=== PATIENT | male | born 1935 | race Hispanic/Latino ===

== ENCOUNTER 2016-11-11 16:11 | Observation (INO) | payer MEDICARE ==
[2016-11-11 16:11] VITALS: BMI 27.9
--- NOTE | 2016-11-11 16:47 | ED PDOC ---
HPI: General Adult Time Seen by Provider: 11/11/16 16:32 Chief Complaint (Nursing): Chest Pain History Per: Patient Additional Complaint(s): Pt. states this morning he had several episodes of intermittent L sided non- radiating chest pain that would resolve spontaneously. Reports that he took 2 Aspirin 325mg. Currently without any pain. Denies SOB, [place], leg pain, palpitations, fever, hx of CAD, trauma. Past Medical History Reviewed: Historical Data, Nursing Documentation, Vital Signs Vital Signs: Last Vital Signs Temp 98.3 F 11/11/16 16:21 Pulse 80 11/11/16 16:34 Resp 18 11/11/16 16:21 BP 138/86 11/11/16 16:21 Pulse Ox 97 11/11/16 16:50 - Medical History PMH: Anxiety, Arthritis, Depression, HTN, Hypercholesterolemia, Hypothyroidism, Chronic Kidney Disease - Family History Family History: States: No Known Family Hx - Home Medications Home Medications: Ambulatory Orders Medication Instructions Recorded Aspirin [Aspirin EC] 325 mg PO DAILY 11/11/16 Atorvastatin [Lipitor] 10 mg PO HS 11/11/16 Bethanechol [Urecholine] 25 mg PO TID 11/11/16 Bethanechol [Urecholine] 50 mg PO HS 11/11/16 Ergocalciferol (Vitamin D2) 50,000 unit PO Q14D 11/11/16 [Vitamin D2] Febuxostat [Uloric] 80 mg PO DAILY 11/11/16 Sevelamer Carbonate [Renvela] 800 mg PO TID 11/11/16 Sodium Bicarbonate Tab [Sodium 650 mg PO BID 11/11/16 Bicarbonate Tab] Tamsulosin [Flomax] 0.4 mg PO HS 11/11/16 Valsartan [Diovan] 160 mg PO DAILY 11/11/16 Vilazodone HCl [Viibryd] 20 mg PO QAM 11/11/16 buPROPion XL [Wellbutrin XL] 300 mg PO QAM 11/11/16 clonazePAM [Klonopin] 0.25 mg PO BID PRN 11/11/16 diltiaZEM CD [Cardizem CD] 180 mg PO DAILY 11/11/16 hydroCHLOROthiazide [Hydrodiuril] 25 mg PO DAILY 11/11/16 - Allergies Allergies/Adverse Reactions: Allergies Allergy/AdvReac Type Severity Reaction Status Date / Time No Known Allergies Allergy Verified 11/11/16 16:20 Review of Systems ROS Statement: Except As Marked, All Systems Reviewed And Found Negative Cardiovascular: Positive for: Chest Pain Physical Exam - Reviewed Nursing Documentation Reviewed: Yes Vital Signs Reviewed: Yes - Physical Exam Appears: Positive for: Well, Non-toxic, No Acute Distress Head Exam: Positive for: ATRAUMATIC, NORMAL INSPECTION, NORMOCEPHALIC Skin: Positive for: Normal Color, Warm. Negative for: Rash Eye Exam: Positive for: EOMI, Normal appearance, PERRL ENT: Positive for: Normal ENT Inspection Neck: Positive for: Normal, Painless ROM Cardiovascular/Chest: Positive for: Regular Rate, Rhythm Respiratory: Positive for: CNT, Normal Breath Sounds Gastrointestinal/Abdominal: Positive for: Normal Exam, Bowel Sounds, Soft Back: Positive for: Normal Inspection Extremity: Positive for: Normal ROM Neurologic/Psych: Positive for: Alert, Oriented. Negative for: Aphasia, Facial Droop - Laboratory Results Result Diagrams: 11/11/16 16:55 11/11/16 16:55 - ECG ECG: Positive for: Interpreted By Me ECG Rhythm: Positive for: Sinus Rhythm. Negative for: ST/T Changes O2 Sat by Pulse Oximetry: 97 - Radiology X-Ray: Interpreted by Me (CXR) X-Ray Interpretation: No Acute Disease - Progress ED Course And Treament: Labs ordered. CXR ordered. IV line established. Pt. placed on cardiac rehab nurse. Case d/w Dr. Hill and arrangements made for 23 hr observation. Re-evaluation Time: 19:06 Disposition - Clinical Impression Clinical Impression: Chest pain - Patient ED Disposition Is Patient to be Admitted: No - Disposition Disposition Time: 19:06 Condition: STABLE
[2016-11-11 17:18] LABS: BASO % 0.5 % (0.0-2.0); EOS # 0.1 K/uL (0.0-0.7); EOS % 1.3 % (0.0-4.0); HEMATOCRIT 51.3 % (35.0-51.0); LYMPH # 1.5 K/uL (1.0-4.3); LYMPH % 21.4 % (20.0-40.0); MEAN CORPUSCULAR HEMOGLOBIN 30.3 pg (27.0-31.0); MEAN CORPUSCULAR HGB CONC 33.6 g/dL (33.0-37.0); MEAN PLATELET VOLUME 9.2 fl (7.2-11.7); MONO # 0.5 K/uL (0.0-0.8); MONO % 6.5 % (0.0-10.0); NEUT # 4.9 K/uL (1.8-7.0); NEUT % 70.3 % (50.0-75.0); NRBC % 0.3 % (0.0-0.0); RED CELL DISTRIBUTION WIDTH 15.1 % (11.5-14.5)
--- NOTE | 2016-11-11 17:31 | RAD ---
HISTORY: chest pain COMPARISON: Chest x-ray performed 01/05/14 TECHNIQUE: Chest, one view. FINDINGS: LUNGS: Mild left basilar atelectasis or infiltrate. Linear atelectasis, right lower lobe. Please note that chest x-ray has limited sensitivity for the detection of pulmonary masses. PLEURA: No significant pleural effusion identified. No definite pneumothorax . CARDIOVASCULAR: Cardiomegaly. Ectatic aorta. OSSEOUS STRUCTURES: Degenerative changes. VISUALIZED UPPER ABDOMEN: Unremarkable. OTHER FINDINGS: None. IMPRESSION: Mild left basilar atelectasis or infiltrate. Linear atelectasis, right lower lobe. Cardiomegaly. Ectatic aorta.
[2016-11-11 17:35] LABS: ALB/GLOB RATIO 1.1 (1.0-2.1); ALKALINE PHOSPHATASE 89 U/L (38-126); ALT/SGPT 43 U/L (21-72); AST/SGOT 25 U/L (17-59); BILIRUBIN,TOTAL 0.6 mg/dl (0.2-1.3); BLOOD UREA NITROGEN 29 mg/dl (9-20); CARBON DIOXIDE 22 mmol/L (22-30); CHLORIDE 108 mmol/L (98-107); GFR AFRICAN-AMERICAN 42; GLUCOSE,RANDOM 124 mg/dL (75-110); POTASSIUM 3.6 MMOL/L (3.6-5.0); SODIUM 140 mmol/l (132-148); TOTAL PROTEIN 7.3 G/DL (6.3-8.2)
--- NOTE | 2016-11-11 19:50 | CP.PCM.HP ---
History of Present Illness - History of Present Illness History of Present Illness: CC/HPI: Pt. presents to the emergency room from home. Pt. reports walked to the emergency room unassisted because of "chest pressure." Pt. states chest pressure started last night while at home. Pt. states pressure is left sided and lasted for a few seconds and resolved spontaneously. Pt. reports the today the intermittent episodes of chest pressure continue to persist and has had 8 episodes prior to arriving to the emergency room. Pt. reports has taken Aspirin 325mg x 2 today and reports no change in current symptoms. Pt. reports he has not experienced this type of symptom in the past. Pt. denies any chest pain associated with exertion and denies any shortness of breath with changes in position. Pt. also denies any palpitations, lightheadedness, falls, injury, recent travel, or sick contacts. Pt. at this time with no other complaints. ROS: Pt. denies any nausea, vomiting, diarrhea, constipation, abdominal pain, flank pain, joint pain, dysuria, rashes, fever, chills, or weight loss. 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 Conte at [facility] Nephrology: Dr. Padilla Cardiology: Dr. Herr Psychiatry: Jose Waterman Course 1- CXR 2- EKG 3- CBC, CMP, Troponin, Pro-BNP Present on Admission - Present on Admission Any Indicators Present on Admission: No History of DVT/PE: No History of Uncontrolled Diabetes: No Urinary Catheter: No Decubitus Ulcer Present: No Review of Systems - Review of Systems Review of Systems: See HPI - Cardiovascular Cardiovascular: Chest Pain (See HPI for details) Past Patient History - Past Medical History & Family History Past Medical History?: Yes - Past Social History Smoking Status: Never Smoked - CARDIAC Hx Hypercholesterolemia: Yes Hx Hypertension: Yes - PULMONARY Hx Respiratory Disorders: No - NEUROLOGICAL Hx Neurological Disorder: No - HEENT Hx HEENT Problems: No - RENAL Hx Chronic Kidney Disease: Yes - ENDOCRINE/METABOLIC Hx Hypothyroidism: Yes - HEMATOLOGICAL/ONCOLOGICAL Hx Hepatitis A: Yes - MUSCULOSKELETAL/RHEUMATOLOGICAL Hx Arthritis: Yes - GASTROINTESTINAL Hx Gastrointestinal Disorders: No - GENITOURINARY/GYNECOLOGICAL Hx Genitourinary Disorders: Yes Other/Comment: Obstructive uropathy. urogenic bladder - PSYCHIATRIC Hx Anxiety: Yes Hx Depression: Yes - SURGICAL HISTORY Hx Surgeries: Yes Other/Comment: TURP-5 yrs ago - ANESTHESIA Hx Anesthesia: Yes Hx Anesthesia Reactions: No Hx Malignant Hyperthermia: No Meds Allergies/Adverse Reactions: Allergies Allergy/AdvReac Type Severity Reaction Status Date / Time No Known Allergies Allergy Verified 11/11/16 16:20 Physical Exam - Constitutional Appears: Non-toxic, No Acute Distress - Eye Exam Eye Exam: PERRL. absent: Conjunctival injection - Neck Exam Neck exam: Positive for: Full Rom. Negative for: Thyromegaly - Respiratory Exam Respiratory Exam: Clear to Auscultation Bilateral, NORMAL BREATHING PATTERN - Cardiovascular Exam Cardiovascular Exam: REGULAR RHYTHM, +S1, +S2 - GI/Abdominal Exam GI & Abdominal Exam: Normal Bowel Sounds, Soft. absent: Tenderness - Extremities Exam Extremities exam: Positive for: pedal pulses present. Negative for: calf tenderness - Neurological Exam Neurological exam: Alert, Oriented x3 - Psychiatric Exam Psychiatric exam: Normal Affect, Normal Mood Results - Vital Signs Recent Vital Signs: Last Vital Signs Temp 98.3 F 11/11/16 16:21 Pulse 80 11/11/16 16:34 Resp 18 11/11/16 16:21 BP 138/86 11/11/16 16:21 Pulse Ox 97 11/11/16 16:50 - Labs Result Diagrams: 11/11/16 16:55 11/11/16 16:55 Assessment & Plan - Assessment and Plan (Free Text) Assessment: 81 y.o. male with complaint of chest pain Chest Pain of unclear etiology 1- Troponin x 1 Negative, will repeat 2nd Troponin 2- EKG Normal sinus rhythm, no acute changes when compared to previous EKG 3- ECHO dated 02/16/16 EF of 55-60% with Mild Concentric LVH- Will repeat Echocardiogram 4- Nuclear stress test dated 02/29/16- No evidence of ischemic myocardium 5- CXR Portable- No signs of fracture or Pneumothorax- Will get PA/Lateral for further evaluation 6- Cardiology- Pt. seen by Dr. Herr in the past, consider consult if clinically indicated 7- Labs- Lipid Panel, HbA1c, TSH CKD Stage III not on HD - GFR 34 1- Repeat BMP 2- Continue Renagel 3- Continue Sodium Bicarbonate HTN 1- Continue Diltiazem CD 180mg 2- Continue Losartan 160mg HLD 1- Continue Atorvastatin 2- Lipid Panel BPH 1- Continue Tamsulosin .4mg 2- Continue Bethanechol 50mg Gout 1- Continue Uloric acid 80mg 2- Uric acid level Depression/Anxiety 1- Continue Wellbutrin (Non-forumulary) 2- Continue Vilazadone (Non-formulary) 3- Continue Clonazepam .25mg PRN Diet 1- Heart Healthy DVT prophylaxis 1- Lovenox 40mg sc 2- CBC
[2016-11-11] MEDS ORDERED: Bethanechol 50 MG TAB PO SCH (22:00)
[2016-11-12 07:17] LABS: HEMATOCRIT 49.5 % (35.0-51.0); MEAN CORPUSCULAR HEMOGLOBIN 30.5 pg (27.0-31.0); MEAN CORPUSCULAR HGB CONC 33.5 g/dL (33.0-37.0); RED CELL DISTRIBUTION WIDTH 14.7 % (11.5-14.5); WHITE BLOOD COUNT 6.6 K/uL (4.8-10.8)
[2016-11-12 07:25] LABS: BLOOD UREA NITROGEN 26 mg/dl (9-20); CALCIUM 8.8 mg/dL (8.4-10.2); CARBON DIOXIDE 24 mmol/L (22-30); CHLORIDE 108 mmol/L (98-107); CHOLESTEROL 102 mg/dL (0-199); GFR AFRICAN-AMERICAN 47; GLUCOSE,RANDOM 88 mg/dL (75-110); POTASSIUM 3.2 MMOL/L (3.6-5.0); SODIUM 142 mmol/l (132-148); URIC ACID 4.4 mg/Dl (3.5-8.5)
[2016-11-12 07:53] LABS: THYROID STIMULATING HORMONE 2.14 mIU/ML (0.46-4.68)
[2016-11-12 08:15] VITALS: RESP 20
[2016-11-12] MEDS ORDERED: Patient's Own Med (Vilazodone Hcl [Viibryd] 20 mg) PO SCH (09:00)
[2016-11-12] MEDS ORDERED: diltiaZEM 180 mg/24 Hours CD Cap PO SCH (09:00)
[2016-11-12] MEDS: Enoxaparin 40 mg Syringe SC SCH ×2 (09:18→09:23)
--- NOTE | 2016-11-12 09:24 | CP.PCM.CON ---
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 Past Patient History - Past Medical History & Family History Past Medical History?: Yes - Past Social History Smoking Status: Never Smoked - CARDIAC Hx Hypercholesterolemia: Yes Hx Hypertension: Yes - PULMONARY Hx Respiratory Disorders: No - NEUROLOGICAL Hx Neurological Disorder: No - HEENT Hx HEENT Problems: No - RENAL Hx Chronic Kidney Disease: Yes - ENDOCRINE/METABOLIC Hx Hypothyroidism: Yes - HEMATOLOGICAL/ONCOLOGICAL Hx Hepatitis A: Yes - INTEGUMENTARY Hx Dermatological Problems: No - MUSCULOSKELETAL/RHEUMATOLOGICAL Hx Arthritis: Yes - GASTROINTESTINAL Hx Gastrointestinal Disorders: No - GENITOURINARY/GYNECOLOGICAL Hx Genitourinary Disorders: Yes Other/Comment: Obstructive uropathy. urogenic bladder - PSYCHIATRIC Hx Anxiety: Yes Hx Depression: Yes - SURGICAL HISTORY Hx Surgeries: Yes Other/Comment: TURP-5 yrs ago - ANESTHESIA Hx Anesthesia: Yes Hx Anesthesia Reactions: No Hx Malignant Hyperthermia: No Meds Allergies/Adverse Reactions: Allergies Allergy/AdvReac Type Severity Reaction Status Date / Time No Known Allergies Allergy Verified 11/11/16 16:20 - Medications Medications: Current Medications Atorvastatin Calcium (Lipitor) 10 mg PO HS [facility] Last Admin: 11/11/16 21:42 Dose: 10 mg Bethanechol Chloride (Urecholine) 25 mg PO TID JAMES Bethanechol Chloride (Urecholine) 50 mg PO HS [facility] Last Admin: 11/11/16 21:44 Dose: 50 mg Clonazepam (Klonopin) 0.25 mg PO BID PRN PRN Reason: Anxiety Diltiazem HCl (Cardizem Cd) 180 mg PO DAILY [facility] Enoxaparin Sodium (Lovenox) 40 mg SC DAILY [facility] PRN Reason: Protocol Home Med (Bupropion Xl [Wellbutrin Xl]) 300 mg PO QAM [facility] Home Med (Febuxostat [Uloric]) 80 mg PO DAILY [facility] Home Med (Vilazodone Hcl [Viibryd]) 20 mg PO QAM [facility] Sevelamer HCl (Renagel) 800 mg PO TID [facility] Sodium Bicarbonate (Sodium Bicarbonate Tab) 650 mg PO BID [facility] Tamsulosin HCl (Flomax) 0.4 mg PO HS JAMES Last Admin: 11/11/16 21:44 Dose: 0.4 mg Valsartan (Diovan) 160 mg PO DAILY [facility] Results - Vital Signs Recent Vital Signs: Last Vital Signs Temp 97.8 F 11/12/16 08:14 Pulse 50 L 11/12/16 08:14 Resp 20 11/12/16 08:14 BP 159/81 H 11/12/16 08:14 Pulse Ox 98 11/12/16 08:14 - Labs Result Diagrams: 11/12/16 05:20 11/12/16 05:20 Labs: Laboratory Results - last 24 hr 11/11/16 11/12/16 11/12/16 20:54 05:20 05:20 WBC 6.6 RBC 5.44 Hgb 16.6 Hct 49.5 MCV 91.0 MCH 30.5 MCHC 33.5 RDW 14.7 H Plt Count 139 Sodium 142 Potassium 3.2 L Chloride 108 H Carbon Dioxide 24 Anion Gap 13 BUN 26 H Creatinine 1.7 H Est GFR ( Amer) 47 Est GFR (Non-Af Amer) 39 Random Glucose 88 Uric Acid 4.4 Calcium 8.8 Troponin I < 0.0120 NT-Pro-B Natriuret Pep 145 Triglycerides 68 Cholesterol 102 LDL Cholesterol Direct 51 HDL Cholesterol 36 TSH 3rd Generation 2.14
--- NOTE | 2016-11-12 10:16 | CP.PCM.DIS ---
Provider - Provider Date of Admission: 11/11/16 19:06 Attending physician: Mylene Davis MD Consults: Dr. Herr-cardiology Time Spent in preparation of Discharge (in minutes): 30 Diagnosis - Discharge Diagnosis (1) Chest pain Status: Acute Priority: Low Hospital Course - Lab Results Lab Results: Most Recent Lab Values WBC 6.6 K/uL (4.8-10.8) 11/12/16 05:20 RBC 5.44 Mil/uL (4.40-5.90) 11/12/16 05:20 Hgb 16.6 g/dL (12.0-18.0) 11/12/16 05:20 Hct 49.5 % (35.0-51.0) 11/12/16 05:20 MCV 91.0 fl (80.0-94.0) 11/12/16 05:20 MCH 30.5 pg (27.0-31.0) 11/12/16 05:20 MCHC 33.5 g/dL (33.0-37.0) 11/12/16 05:20 RDW 14.7 % (11.5-14.5) H 11/12/16 05:20 Plt Count 139 K/uL (130-400) 11/12/16 05:20 MPV 9.2 fl (7.2-11.7) 11/11/16 16:55 Neut % (Auto) 70.3 % (50.0-75.0) 11/11/16 16:55 Lymph % (Auto) 21.4 % (20.0-40.0) 11/11/16 16:55 [place] % (Auto) 6.5 % (0.0-10.0) 11/11/16 16:55 Eos % (Auto) 1.3 % (0.0-4.0) 11/11/16 16:55 Baso % (Auto) 0.5 % (0.0-2.0) 11/11/16 16:55 Neut # 4.9 K/uL (1.8-7.0) 11/11/16 16:55 Lymph # 1.5 K/uL (1.0-4.3) 11/11/16 16:55 [place]cho # 0.5 K/uL (0.0-0.8) 11/11/16 16:55 Eos # 0.1 K/uL (0.0-0.7) 11/11/16 16:55 Baso # 0.0 K/uL (0.0-0.2) 11/11/16 16:55 Sodium 142 mmol/l (132-148) 11/12/16 05:20 Potassium 3.2 MMOL/L (3.6-5.0) L 11/12/16 05:20 Chloride 108 mmol/L (98-107) H 11/12/16 05:20 Carbon Dioxide 24 mmol/L (22-30) 11/12/16 05:20 Anion Gap 13 (10-20) 11/12/16 05:20 BUN 26 mg/dl (9-20) H 11/12/16 05:20 Creatinine 1.7 mg/dL (0.8-1.5) H 11/12/16 05:20 Est GFR ( Amer) 47 11/12/16 05:20 Est GFR (Non-Af Amer) 39 11/12/16 05:20 Random Glucose 88 mg/dL (75-110) 11/12/16 05:20 Uric Acid 4.4 mg/Dl (3.5-8.5) 11/12/16 05:20 Calcium 8.8 mg/dL (8.4-10.2) 11/12/16 05:20 Total Bilirubin 0.6 mg/dl (0.2-1.3) 11/11/16 16:55 AST 25 U/L (17-59) 11/11/16 16:55 ALT 43 U/L (21-72) 11/11/16 16:55 Alkaline Phosphatase 89 U/L (38-126) 11/11/16 16:55 Troponin I < 0.0120 ng/mL (0.00-0.120) 11/12/16 05:20 NT-Pro-B Natriuret Pep 145 pg/ml (0-900) 11/11/16 20:54 Total Protein 7.3 G/DL (6.3-8.2) 11/11/16 16:55 Albumin 3.8 g/dL (3.5-5.0) 11/11/16 16:55 Globulin 3.5 gm/dL (2.2-3.9) 11/11/16 16:55 Albumin/Globulin Ratio 1.1 (1.0-2.1) 11/11/16 16:55 Triglycerides 68 mg/DL (0-149) 11/12/16 05:20 Cholesterol 102 mg/dL (0-199) 11/12/16 05:20 LDL Cholesterol Direct 51 mg/dL (0-129) 11/12/16 05:20 HDL Cholesterol 36 MG/DL (30-70) 11/12/16 05:20 TSH 3rd Generation 2.14 mIU/ML (0.46-4.68) 11/12/16 05:20 - Hospital Course Hospital Course: 81 yr old M admitted for chest pain and pressure, patient was evaluated by cardiology-Dr. Herr, ACS was ruled out, patients symptoms improved, chest discomfort was likely secondary to costochondritis. He is stable and may be managed as outpatient. Has PMHx of HTN, HLD, CKD Stage 3B, BPH, Major Depression , Anxiety and arthritis. Patient has follow up appointments with his Car Inspector -Dr. Padilla, Urology -Dr. Gamez, and will follow up with cardiology-Dr. Herr as outpatient. - Date & Time of H&P Date of H&P: 11/11/16 Time of H&P: 19:50 Discharge Exam - Head Exam Head Exam: ATRAUMATIC, NORMAL INSPECTION, NORMOCEPHALIC - Eye Exam Eye Exam: EOMI, PERRL Pupil Exam: NORMAL ACCOMODATION - ENT Exam ENT Exam: Mucous Membranes Moist - Neck Exam Neck exam: Full Rom (no lymphadenopathy) - Respiratory Exam Respiratory Exam: Clear to PA & Lateral, NORMAL BREATHING PATTERN - Cardiovascular Exam Cardiovascular Exam: REGULAR RHYTHM, +S1, +S2 - GI/Abdominal Exam GI & Abdominal Exam: Normal Bowel Sounds, Soft. absent: Distended - Extremities Exam Extremities exam: full ROM (no calf tenderness, no pedal edema) - Back Exam Back exam: absent: CVA tenderness (L), CVA tenderness (R) - Neurological Exam Neurological exam: Alert, CN II-XII Intact, Oriented x3 - Psychiatric Exam Psychiatric exam: Normal Affect, Normal Mood - Skin Skin Exam: Dry, Intact, Warm Discharge Plan - Follow Up Plan Condition: STABLE Disposition: HOME/ ROUTINE Patient education suggested?: Yes Instructions: Chest Pain (DC) Additional Instructions: Patient to follow up with PMD in 2-3 days Follow up with Dr. Herr in 3-4 weeks Return to Hospital if symptoms worsen or regress. Referrals: Maik Gamez Jr., MD [Staff Provider] - Sudhakar Herr MD [Staff Provider] - Mi Conte MD [Resident] - Jeevan Padilla MD [Staff Provider] -
[2016-11-12 12:13] VITALS: BP 149/89; PULSE 52; TEMP 98; O2SAT 96
--- NOTE | 2016-11-12 16:50 | RAD ---
HISTORY: Intermittent Chest Pressure, Atelectasis COMPARISON: Comparison made with prior chest radiograph 11/11/2016 TECHNIQUE: Chest PA and lateral FINDINGS: LUNGS: Previously noted opacity left lower lung field improved. This may have represented some atelectasis though there does appear to be some residual linear atelectasis or scarring in the left lung base. Similar changes seen in the right lung base. Hyperinflation suggesting underlying emphysema or COPD Vague nodular density in the left lung base overlying the left posterior 9th rib. Followup nonemergent CT scan of the chest could be performed further evaluation. PLEURA: No significant pleural effusion identified. No pneumothorax apparent. CARDIOVASCULAR: Cardiomegaly. Suspect prominent pericardial fat. OSSEOUS STRUCTURES: Minor multilevel degenerative spondylosis of the thoracic spine. VISUALIZED UPPER ABDOMEN: Normal. OTHER FINDINGS: None. IMPRESSION: Previously noted opacity left lower lung field improved. This may have represented some atelectasis though there does appear to be some residual linear atelectasis or scarring in the left lung base. Similar changes seen in the right lung base. Hyperinflation suggesting underlying emphysema or COPD Vague nodular density in the left lung base overlying the left posterior 9th rib. Followup nonemergent CT scan of the chest could be performed further evaluation.
== END 2016-11-12 13:21 | disposition home or self-care (01) ==
LOC: H.ER 16:11 → H.ERHOLD 19:06 → H.TEL 21:06
PROVIDERS: ADMIT Family Medicine Geriatric Medicine; ATTEND Family Medicine Geriatric Medicine
DX: R07.89 Other chest pain (principal); E03.9 Hypothyroidism, unspecified; E78.00 Pure hypercholesterolemia, unspecified; E78.5 Hyperlipidemia, unspecified; F32.9 Major depressive disorder, single episode, unspecified; F41.9 Anxiety disorder, unspecified; I12.9 Hypertensive chronic kidney disease with stage 1 through stage 4 chronic kidney disease, or unspecified chronic kidney disease; N18.3 Chronic kidney disease, stage 3 (moderate); M10.9 Gout, unspecified; N40.1 Benign prostatic hyperplasia with lower urinary tract symptoms; N13.9 Obstructive and reflux uropathy, unspecified; N31.9 Neuromuscular dysfunction of bladder, unspecified; Z96.642 Presence of left artificial hip joint; I25.2 Old myocardial infarction
CPT/HCPCS: 36415; 71010; 71020; 80048; 80053; 80061; 83036; 83880; 84443; 84484; 84550; 85025; 85027; 99282; G0378

== ENCOUNTER 2018-03-09 11:28 | Emergency (ER) | payer MEDICARE ==
[2018-03-09 11:28] VITALS: BMI 27.9
[2018-03-09 11:59] VITALS: RESP 20; O2SAT 98
[2018-03-09] MEDS ORDERED: Iohexol 240 (50 ml) PO ONE (13:08)
[2018-03-09] MEDS ORDERED: Alum-Mag Hydrox-Simethicone Susp (30 mL) PO STA (13:10)
[2018-03-09 13:47] LABS: BASO # 0.1 K/uL (0.0-0.2); BASO % 0.7 % (0.0-2.0); EOS # 0.3 K/uL (0.0-0.7); EOS % 3.7 % (0.0-4.0); HEMOGLOBIN 14.8 g/dL (12.0-18.0); LYMPH # 1.5 K/uL (1.0-4.3); LYMPH % 20.5 % (20.0-40.0); MEAN CELL VOLUME 85.5 fl (80.0-94.0); MEAN CORPUSCULAR HEMOGLOBIN 28.8 pg (27.0-31.0); MEAN CORPUSCULAR HGB CONC 33.7 g/dL (33.0-37.0); MEAN PLATELET VOLUME 8.4 fl (7.2-11.7); MONO # 0.8 K/uL (0.0-0.8); MONO % 10.8 % (0.0-10.0); NEUT # 4.8 K/uL (1.8-7.0); NEUT % 64.3 % (50.0-75.0); NRBC % 0.1 % (0.0-0.0); RBC 5.14 Mil/uL (4.40-5.90); RED CELL DISTRIBUTION WIDTH 18.9 % (11.5-14.5); WHITE BLOOD COUNT 7.4 K/uL (4.8-10.8)
[2018-03-09] MEDS ORDERED: Alum-Mag Hydrox-Simethicone Susp (30 mL) ONE (13:47)
[2018-03-09] MEDS ORDERED: Iohexol 240 (50 ml) ONE (13:48)
[2018-03-09 14:00] LABS: URINE BACTERIA MOD (<OCC); URINE BILIRUBIN NEGATIVE (NEGATIVE); URINE BLOOD NEGATIVE (NEGATIVE); URINE CLARITY SLIGHTY-CLOUDY (Clear); URINE COLOR YELLOW (YELLOW); URINE GLUCOSE (UA) NEG (Normal); URINE LEUKOCYTE ESTERASE MOD Leu/uL (Negative); URINE PROTEIN NEGATIVE (NEGATIVE); URINE UROBILINOGEN 0.2-1.0 mg/dL (0.2-1.0)
--- NOTE | 2018-03-09 14:29 | ED PDOC ---
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 Patient states he has been taking over the counter medications with no relief. Patient report of having had an abdominal US done a couple of weeks ago that showed a full bladder and no other medical problems. Patient states he is able to urinate normal and has daily bowel movements. Patient denies nausea, fevers, pain with urination and pain with defecating. 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 Patient additionally complains the pain has been worsening lately. 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 - Surgical History Surgical History: No Surg Hx Denies: Hernia Repair - Family History Family History: States: Unknown Family Hx - Home Medications Home Medications: Ambulatory Orders Medication Instructions Recorded RX: Aspirin [Aspirin EC] 325 mg PO DAILY 11/11/16 RX: Atorvastatin [Lipitor] 10 mg PO HS 11/11/16 RX: Bethanechol [Urecholine] 25 mg PO TID 11/11/16 RX: Bethanechol [Urecholine] 50 mg PO HS 11/11/16 RX: Ergocalciferol (Vitamin D2) 50,000 unit PO Q14D 11/11/16 [Vitamin D2] RX: Febuxostat [Uloric] 80 mg PO DAILY 11/11/16 RX: Sevelamer Carbonate [Renvela] 800 mg PO TID 11/11/16 RX: Sodium Bicarbonate Tab 650 mg PO BID 11/11/16 RX: Tamsulosin [Flomax] 0.4 mg PO HS 11/11/16 RX: Valsartan [Diovan] 160 mg PO DAILY 11/11/16 RX: Vilazodone HCl [Viibryd] 20 mg PO QAM 11/11/16 RX: buPROPion XL [Wellbutrin XL] 300 mg PO QAM 11/11/16 RX: clonazePAM [Klonopin] 0.25 mg PO BID PRN 11/11/16 RX: diltiaZEM CD [Cardizem CD] 180 mg PO DAILY 11/11/16 RX: hydroCHLOROthiazide 25 mg PO DAILY 11/11/16 [Hydrodiuril] Sulfamethoxazole/Trimethoprim 1 tab PO BID #28 tab 03/09/18 [Bactrim DS 800 mg-160 mg] - Allergies Allergies/Adverse Reactions: Allergies Allergy/AdvReac Type Severity Reaction Status Date / Time No Known Allergies Allergy Verified 03/09/18 11:56 Review of Systems ROS Statement: Except As Marked, All Systems Reviewed And Found Negative Gastrointestinal: Positive for: Abdominal Pain. Negative for: Nausea, Vomiting, Diarrhea Genitourinary Male: Negative for: Dysuria, Hematuria Musculoskeletal: Positive for: Foot Pain Physical Exam - Reviewed Nursing Documentation Reviewed: Yes Vital Signs Reviewed: Yes - Physical Exam Appears: Positive for: No Acute Distress (Patient appears mildly disheveled. Patient paces around the room in NAD and cooperative. ) Cardiovascular/Chest: Positive for: Regular Rate, Rhythm. Negative for: Murmur Gastrointestinal/Abdominal: Positive for: Soft, Distended. Negative for: Tende rness Extremity: Positive for: Other (Edema to the bilateral legs. Feet appear very dirty with a calus to the lateral foot at the base of the fifth digit. No erythema, swelling fluctuance or bleeding. ) - Laboratory Results Result Diagrams: 03/09/18 13:40 03/09/18 14:15 - ECG O2 Sat by Pulse Oximetry: 98 (RA) Pulse Ox Interpretation: Normal Medical Decision Making Medical Decision Making: Time: 1415 A/P: Workup for acute abdominal pathology causing this acute distention. -- Labs, CT Abd/Pelvis w/ PO & IV contrast -- Tylenol and Maalox for abdominal discomfort. -- Reassess patient. -- Type and Screen -- CT Abd/Pelvis PO & IV contrast -- CMP -- Lipase -- CBC with Differentials -- Maalox Plus 30 ml PO -- Iohexol 50 ml PO -- Tylenol 650 mg PO -- Urinalysis Scribe Attestation: Documented by Efra Thompson, acting as a scribe for Patty Aquino MD. Provider Scribe Attestation: All medical record entries made by the Scribe were at my direction and personally dictated by me. I have reviewed the chart and agree that the record accurately reflects my personal performance of the history, physical exam, medical decision making, and the department course for this patient. I have also personally directed, reviewed, and agree with the discharge instructions and disposition. Work up shows now acute abnormality. Labs WNL. Pt given referral for outpatient and podiatry follow up. Return parameters discussed. Disposition - Clinical Impression Clinical Impression: Abdominal pain, Urinary tract infection - Disposition Disposition Time: 17:32 Condition: IMPROVED Additional Instructions: Take antibiotics for urinary tract infection. Follow up with urology for further evaluation of prostate enlargement and urinary tract infection. Discuss unwanted medication side effects with urologist. Follow up with surgeon jona hanna hernia repair. Return to the emergency department if symptoms worsen or if new symptoms develop. Prescriptions: Sulfamethoxazole/Trimethoprim [Bactrim DS 800 mg-160 mg] 1 tab PO BID #28 tab Instructions: Urinary Tract Infection, Adult (DC) Forms: [employer] (Greek) Print Language: [place]IZ[place]
[2018-03-09 15:04] LABS: ALB/GLOB RATIO 0.8 (1.0-2.1); ALBUMIN 3.4 g/dL (3.5-5.0)
--- NOTE | 2018-03-09 16:46 | CT ---
Date of service: 03/09/2018 PROCEDURE: CT Abdomen and Pelvis with contrast HISTORY: abd pain and distension COMPARISON: None. TECHNIQUE: Helical CT of the abdomen and pelvis was performed following oral contrast administration only. Intravenous contrast was not administered as per referring physician request. Coronal and sagittal reformats were generated. contrast dose: None Radiation dose: Total exam DLP = 1216.71 mGy-cm. This CT exam was performed using one or more of the following dose reduction techniques: Automated exposure control, adjustment of the mA and/or kV according to patient size, and/or use of iterative reconstruction technique. FINDINGS: LOWER THORAX: Linear axis or fibrosis seen at the bilateral lung bases. No pleural or pericardial effusion. Mild cardiomegaly. LIVER: Unremarkable. No gross lesion or ductal dilatation. GALLBLADDER AND BILE DUCTS: Unremarkable. PANCREAS: Unremarkable. No gross lesion or ductal dilatation. SPLEEN: Unremarkable. ADRENALS: Unremarkable. No mass. KIDNEYS AND URETERS: Two cysts identified the left kidney. At the upper pole exophytic cephalad is a 3.1 x 3.0 cm cyst measuring 5 Hounsfield units with a larger cyst at the midpole measuring 5.9 x 5.3 cm and 8 Hounsfield units. No obstructive uropathy bilaterally or significant perinephric reactive change. VASCULATURE: Nonaneurysmal abdominal aortic calcific atherosclerotic changes are identified. Similar changes affect the bilateral iliac arterial systems with dilatation of the proximal right common iliac artery up to 1.6 cm at the left common iliac artery up to 1.8 cm. BOWEL: The stomach is decompressed and limited in evaluation. Mildly prominent retained fecal material seen at the ascending colon, moderate at the transverse segment and otherwise limited throughout the remainder. No bowel obstruction or free intra peritoneal gas collection is appreciated. There are bilateral inguinal hernias which contain only fat at the left but also include small bowel loop at the right which does not appear obstructed or incarcerated. No local reactive change however bowel is seen extending into the right hemiscrotum due to the right inguinal hernia. Thickening of the distal rectum difficult to completely exclude. APPENDIX: Normal appendix. PERITONEUM: Unremarkable. No free fluid. No free air. LYMPH NODES: Unremarkable. No enlarged lymph nodes. BLADDER: Urinary bladder wall appears thickened with questionable limited diverticulum superolaterally toward the left. Consider cystitis or outlet obstruction with the latter favored given prominent prostate gland. No pericystic reactive change appreciated. REPRODUCTIVE: Prostate gland is enlarged up lifted in the urinary bladder base. BONES: Left hip replacement hardware obscures imaging through the pelvis somewhat. OTHER FINDINGS: None. IMPRESSION: 1. A mildly large right inguinal hernia is identified extending into the right hemiscrotum including a loop of small bowel which does not appear obstructed/incarcerated. Oral contrast is identified throughout the majority of colon. 2. Left renal cysts are identified, limited in evaluation due lack of intravenous contrast. 3. Enlarged prostate gland is appreciated with mural thickening of the wall of the urinary bladder suggestive of probable outlet obstruction pattern. Alternative diagnosis is cystitis. Limited left urinary bladder dome diverticular changes question. Further clinical correlation recommended. 4. Thickening of the distal rectum difficult to exclude completely.
[2018-03-09 18:54] VITALS: BP 120/70; PULSE 70; TEMP 98
== END 2018-03-09 18:40 | disposition home or self-care (01) ==
LOC: H.ER 11:28
DX: R10.9 Unspecified abdominal pain (principal); N39.0 Urinary tract infection, site not specified; N40.0 Benign prostatic hyperplasia without lower urinary tract symptoms; N18.3 Chronic kidney disease, stage 3 (moderate); I12.9 Hypertensive chronic kidney disease with stage 1 through stage 4 chronic kidney disease, or unspecified chronic kidney disease
CPT/HCPCS: 74176; 80053; 81003; 83690; 85025; 99283; Q9966

== ENCOUNTER 2018-04-16 15:59 | Inpatient (IN) | payer MEDICARE ==
--- NOTE | 2018-04-16 16:28 | ED PDOC ---
HPI:STROKE - Time Time: 16:15 - Historian Historian: Patient - Chief Complaint Chief Complaint: Slurred speech - Onset Date: 04/16/18 Time: 13:00 Onset: Hours - Location Location: Speech - TPA Positive for Contraindication: Yes Reason tPA is not being Administered: acute subdural hematoma - Notes: Notes:: 83yo male presents c/o inability to speak for approximately 20minutes earlier this afternoon. Denies focal weakness, numbness, change in vision, facial droop, headache, chest pain, syncope or falls/trauma. Came to ED several hours later. Admits to currently undergoing workup for melanoma due for appt next week at [facility], denies being on chemo currently. Admits to taking ASA daily, last dose last night prior to arrival. NIHSS Stroke Scale - Date/Time Evaluation Performed Date Performed: 04/16/18 Time Performed: 16:20 When Was NIHSS Performed: Baseline - How Severe is the Stroke Level of Consciousness: 0=Alert LOC to Questions: 0=Both comments correct LOC to commands: 0=Obeys both correctly Best Gaze: 0=Normal Visual: 0=No visual loss Facial: 0=Normal Motor Arm - Left: 0=No drift Motor Arm - Right: 0=No drift Motor Leg - Left: 0=No drift Motor Leg - Right: 0=No drift Limb Ataxia: 0=Absent Sensory: 0=Normal Best Language: 0=No aphasia Dysarthia: 0=Normal articulation Extinction & Inattention (Neglect): 0=Normal, no object Score: 0 rTPA Inclusion/Exclusion - Refusal of Treatment Patient Refused Treatment: No - Inclusion Criteria for Altepase Patient is 18 years or Older: Yes The Clinical Diagnosis of Ischemic Stroke That is Causing a Potentially Disabling Neurological Deficit: No Time of Onset is Well Established to be Less Than 270 Minute Before Treatment Would Begin: No Risk/Benefit Discussed With Patient/Family Member Present: No Past Medical History Reviewed: Historical Data, Nursing Documentation, Vital Signs Vital Signs: Last Vital Signs Temp 98.8 F 04/16/18 16:12 Pulse 82 04/16/18 16:12 Resp 16 04/16/18 16:12 BP 147/94 H 04/16/18 16:12 Pulse Ox 98 04/16/18 16:12 - Medical History PMH: Anxiety, Arthritis, Depression, HTN, Hypercholesterolemia, Hypothyroidism, Chronic Kidney Disease (stage 3 ) - Surgical History Surgical History: Denies: Hernia Repair - Family History Family History: States: Unknown Family Hx - Social History Current smoker - smoking cessation education provided: No - Home Medications Home Medications: Ambulatory Orders Medication Instructions Recorded Aspirin [Aspirin EC] 325 mg PO HS 11/11/16 Atorvastatin [Lipitor] 10 mg PO HS 11/11/16 Bethanechol [Urecholine] 25 mg PO TID 11/11/16 Bethanechol [Urecholine] 50 mg PO HS 11/11/16 Febuxostat [Uloric] 80 mg PO DAILY 11/11/16 Sevelamer Carbonate [Renvela] 800 mg PO TID 11/11/16 Sodium Bicarbonate Tab 650 mg PO Q12 11/11/16 Tamsulosin [Flomax] 0.4 mg PO HS 11/11/16 Valsartan [Diovan] 160 mg PO DAILY 11/11/16 clonazePAM [Klonopin] 0.5 mg PO DAILY PRN 11/11/16 diltiaZEM CD [Cardizem CD] 180 mg PO DAILY 11/11/16 hydroCHLOROthiazide [Hydrodiuril] 25 mg PO DAILY 11/11/16 Furosemide [Lasix] 80 mg PO .3X/WEEK PRN 04/16/18 Sildenafil Citrate [Viagra] 25 mg PO HS 04/16/18 - Allergies Allergies/Adverse Reactions: Allergies Allergy/AdvReac Type Severity Reaction Status Date / Time No Known Allergies Allergy Verified 04/16/18 20:53 Review of Systems Constitutional: Negative for: Fever Cardiovascular: Negative for: Chest Pain, Palpitations Respiratory: Negative for: Cough, Shortness of Breath Gastrointestinal: Negative for: Abdominal Pain Genitourinary Male: Negative for: Dysuria Musculoskeletal: Negative for: Neck Pain Skin: Negative for: Rash, Lesions Neurological: Positive for: Change in Speech. Negative for: Weakness, Numbness, Seizures, Altered Mental Status, Headache, Dizziness Psych: Negative for: Suicidal ideation Physical Exam - Reviewed Nursing Documentation Reviewed: Yes Vital Signs Reviewed: Yes - Physical Exam Appears: Positive for: Well, Non-toxic, No Acute Distress Head Exam: Positive for: ATRAUMATIC, NORMAL INSPECTION, NORMOCEPHALIC Skin: Positive for: Normal Color, Warm, DRY Eye Exam: Positive for: EOMI, Normal appearance, PERRL ENT: Positive for: Normal ENT Inspection, Other (bandaid to face where melanoma lesion exists per patient]) Neck: Positive for: Normal, Painless ROM Cardiovascular/Chest: Positive for: Regular Rate, Rhythm Respiratory: Positive for: Normal Breath Sounds. Negative for: Decreased Breath Sounds Pulses-Radial (L): 3+/4+ Pulses-Radial (R): 3+/4+ Gastrointestinal/Abdominal: Positive for: Normal Exam, Soft. 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 Negative for: Motor/Sensory Deficits, Aphasia, Facial Droop - Laboratory Results Result Diagrams: 04/17/18 04:40 04/17/18 04:40 - ECG ECG: Positive for: Interpreted By Me ECG Rhythm: Positive for: Sinus Rhythm, Nonspecific Changes. Negative for: Atrial Fibrillation Rate: 77 O2 Sat by Pulse Oximetry: 98 (RA) Pulse Ox Interpretation: Normal - Radiology X-Ray: Read By Radiologist X-Ray Interpretation: Other (possible L base airspace disease, pt denies cough) - Physician Consult Information Physician Contacted: Savanna Downs Outcome Of Conversation: also contacted Dr Taylor and Dr Fung - Critical Care Total Time (In Min): 45 Comments: patient with acute neurologic emergency Medical Decision Making Medical Decision Making: code stroke initiated, CT brain report reviewed = b/l subdural hematomas with mild mass effect. Patient continues to deny any trauma or falls, only takes ASA daily. Labs and EKG reviewed. INR, Plt and Hgb normal. Dr Downs medical practitioners neuro contact and case discussed, rec ICU and neurosurg eval Dr Taylor medical practitioners neurosurgery contacted and he reviewed CT images, states no intervention necessary acutely, may require evacuation in several days, hold ASA, admit w HOB elev and neurochecks. BP systolic 140s. Admit hospitalist for [facility] patient Dr Hargrove contacted and aware Dr Fung ICU contacted and agrees w plan Discussed case on patients permission with his sister in law Grace on phone, who reports no known reports of recent falls and overall good health with strong cognition. Disposition - Clinical Impression Clinical Impression: Acute subdural hematoma - Patient ED Disposition Is Patient to be Admitted: Yes - Disposition Disposition Time: 17:35 Condition: FAIR - Pt Status Changed To: Hospital Disposition Of: Inpatient - Admit Certification Admit to Inpatient:: After my assessment, the patient will require hospitalization for at least two midnights. This is because of the severity of symptoms shown, intensity of services needed, and/or the medical risk in this patient being treated as an outpatient. - POA Present On Arrival: None
[2018-04-16 16:39] VITALS: BMI 28.8
[2018-04-16 16:41] LABS: BASO # 0.1 K/uL (0.0-0.2); BASO % 0.9 % (0.0-2.0); EOS # 0.1 K/uL (0.0-0.7); EOS % 1.2 % (0.0-4.0); HEMOGLOBIN 14.7 g/dL (12.0-18.0); LYMPH # 1.3 K/uL (1.0-4.3); LYMPH % 16.5 % (20.0-40.0); MEAN CELL VOLUME 88.4 fl (80.0-94.0); MEAN CORPUSCULAR HEMOGLOBIN 29.5 pg (27.0-31.0); MEAN CORPUSCULAR HGB CONC 33.4 g/dL (33.0-37.0); MEAN PLATELET VOLUME 8.1 fl (7.2-11.7); MONO # 0.6 K/uL (0.0-0.8); NEUT # 5.7 K/uL (1.8-7.0); NEUT % 73.4 % (50.0-75.0); NRBC % 0.1 % (0.0-0.0); RBC 4.97 Mil/uL (4.40-5.90); RED CELL DISTRIBUTION WIDTH 16.3 % (11.5-14.5); WHITE BLOOD COUNT 7.7 K/uL (4.8-10.8)
--- NOTE | 2018-04-16 16:41 | CT ---
Date of service: 04/16/2018 PROCEDURE: CT HEAD WITHOUT CONTRAST. HISTORY: code stroke COMPARISON: None available. TECHNIQUE: Axial computed tomography images were obtained through the head/brain without intravenous contrast. Radiation dose: Total exam DLP = 818.81 mGy-cm. This CT exam was performed using one or more of the following dose reduction techniques: Automated exposure control, adjustment of the mA and/or kV according to patient size, and/or use of iterative reconstruction technique. FINDINGS: HEMORRHAGE: There are bilateral Iso to slightly hyperintense subdural hematoma mass along the cerebral convexity slightly larger on the right. The largest thickness of the right cerebral convexity subdural hematoma is 10 millimeter. The largest thickness of the left convexity hematoma is 9 millimeter. The left convexity hematoma is higher in density than the right. BRAIN: There is mild mass effect on the supratentorial brain with mild effacement of the sulci more prominent on the right. Volume loss and mild chronic microvascular white matter ischemic changes. VENTRICLES: Unremarkable. No hydrocephalus. CALVARIUM: Unremarkable. PARANASAL SINUSES: Unremarkable as visualized. No significant inflammatory changes. MASTOID AIR CELLS: Unremarkable as visualized. No inflammatory changes. OTHER FINDINGS: None. IMPRESSION: Bilateral cerebral convexity acute or subacute subdural hematoma slightly larger on the right and slightly higher density on the left. The possibility of acute on subacute or chronic hemorrhage cannot be excluded. Mild mass effect on the brain slightly more on the right. No evidence of significant midline shift. ER physician taking care of the patient was informed on 04/16/2018 at 4:35 p.m..
[2018-04-16 16:46] LABS: INR 1.1; PROTHROMBIN TIME 12.8 Seconds (9.8-13.1)
[2018-04-16 16:49] LABS: PARTIAL THROMBOPLASTIN TIME 31.9 Seconds (25.6-37.1)
[2018-04-16 16:58] LABS: ALB/GLOB RATIO 0.9 (1.0-2.1); ALBUMIN 3.4 g/dL (3.5-5.0); ALT/SGPT 23 U/L (21-72); AST/SGOT 24 U/L (17-59); BLOOD UREA NITROGEN 27 mg/dl (9-20); CALCIUM 9.1 mg/dL (8.4-10.2); GFR NON-AFRICAN AMERICAN 42; HDL CHOLESTEROL 37 MG/DL (30-70)
[2018-04-16 17:08] LABS: LDL CHOLESTEROL 63 mg/dL (0-129)
[2018-04-16] MEDS: Sodium Chloride 0.9% 1,000 ML IV SCH (17:15)
--- NOTE | 2018-04-16 18:15 | CP.PCM.HP ---
History of Present Illness - History of Present Illness History of Present Illness: CC: aphasia HPI: 83 YO male with PMHx of HTN, BPH, CKD stage III, HLD presented to [facility] ED for aphasia. Pt states that he was sitting in the waiting room of his dentist when suddenly he experienced aphasia. The symptom lasted for about 20 mins, no other associated symptoms, no facial droop, no weakness in the upper or lower ext, no headaches or vision changes. First episode per pt, never had any similar symptoms in the past. Denies head trauma, falls. Per pt, bp at home ranges from 120-140's, compliant with his bp meds. 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 PMD: [facility] PMHx: HTN, Hyperlipidemia, CKD stage III (No Hemodialysis), BPH, Depression, Anxiety, Arthritis PSHx: Left total Hip Replacement, Trans-uretheral resection of prostate SMHx: Denies smoking, and illicit drug use. 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 Amble to ambulate without any issues, normal gait, does not use walker, or cane. FMHx: denies hx of HTN, DM, cancers or any chronic diseases Allergies: NKDA Brother Al to make medical decisions if patient is unable to [phone] Budd another brother [phone] Present on Admission - Present on Admission Any Indicators Present on Admission: No Review of Systems - Constitutional Constitutional: absent: Headache - EENT Eyes: absent: Blurred Vision, Change in Vision Ears: Other (nearsighted) - Cardiovascular Cardiovascular: absent: Chest Pain, Dyspnea, Palpitations, Syncope - Respiratory Respiratory: absent: Cough, Dyspnea - Gastrointestinal Gastrointestinal: absent: Abdominal Pain, Nausea, Vomiting - Genitourinary Genitourinary: absent: Change in Urinary Stream, Difficulty Urinating - Musculoskeletal Musculoskeletal: absent: Muscle Weakness, Numbness, Tingling - Neurological Neurological: absent: Dizziness, Numbness, Focal Weakness, Sensory Deficit, Syncope, Vertigo Past Patient History - Past Medical History & Family History Past Medical History?: Yes - Past Social History Smoking Status: Never Smoked Alcohol: Occasional Drugs: Denies Home Situation {Lives}: Alone - CARDIAC Hx Hypercholesterolemia: Yes Hx Hypertension: Yes - PULMONARY Hx Respiratory Disorders: No - NEUROLOGICAL Hx Neurological Disorder: No - HEENT Hx HEENT Problems: No - RENAL Hx Chronic Kidney Disease: Yes (stage 3 ) - ENDOCRINE/METABOLIC Hx Hypothyroidism: Yes - HEMATOLOGICAL/ONCOLOGICAL Hx Hepatitis A: Yes - INTEGUMENTARY Hx Dermatological Problems: No - MUSCULOSKELETAL/RHEUMATOLOGICAL Hx Arthritis: Yes - GASTROINTESTINAL Hx Gastrointestinal Disorders: No - GENITOURINARY/GYNECOLOGICAL Hx Genitourinary Disorders: Yes Other/Comment: Obstructive uropathy. urogenic bladder - PSYCHIATRIC Hx Anxiety: Yes Hx Depression: Yes Hx Substance Use: No - SURGICAL HISTORY Hx Surgeries: Yes Other/Comment: TURP-5 yrs ago - ANESTHESIA Hx Anesthesia: Yes Hx Anesthesia Reactions: No Hx Malignant Hyperthermia: No Meds Allergies/Adverse Reactions: Allergies Allergy/AdvReac Type Severity Reaction Status Date / Time No Known Allergies Allergy Verified 03/09/18 11:56 Physical Exam - Constitutional Appears: No Acute Distress - Head Exam Head Exam: ATRAUMATIC, NORMOCEPHALIC Additional comments: actinic keratosis noted in the scalp Biopsy scar noted in the L cheek, covered with band-aid - Eye Exam Eye Exam: EOMI, Normal appearance, PERRL - ENT Exam ENT Exam: Mucous Membranes Moist - Respiratory Exam Respiratory Exam: Clear to Auscultation Bilateral, NORMAL BREATHING PATTERN. absent: Wheezes - Cardiovascular Exam Cardiovascular Exam: REGULAR RHYTHM, +S1, +S2 - GI/Abdominal Exam GI & Abdominal Exam: Distended (obese), Normal Bowel Sounds, Soft. absent: Guarding, Tenderness - Extremities Exam Extremities exam: Positive for: normal inspection. Negative for: calf tenderness, pedal edema - Neurological Exam Neurological exam: Alert, CN II-XII Intact, Oriented x3 Additional comments: Heel to warren normal b/l Strength 5/5 b/l in the upper and lower ext Sensory intact b/l upper and lower ext Neg pronator drift b/l Results - Vital Signs Recent Vital Signs: Last Vital Signs Temp 98.8 F 04/16/18 16:12 Pulse 73 04/16/18 16:32 Resp 18 04/16/18 16:32 BP 146/96 H 04/16/18 16:32 Pulse Ox 98 04/16/18 16:32 - Labs Result Diagrams: 04/16/18 16:30 04/16/18 16:30 Labs: Laboratory Results - last 24 hr 04/16/18 04/16/18 04/16/18 16:18 16:30 16:30 WBC 7.7 RBC 4.97 Hgb 14.7 Hct 43.9 MCV 88.4 D MCH 29.5 MCHC 33.4 RDW 16.3 H Plt Count 269 MPV 8.1 Neut % (Auto) 73.4 Lymph % (Auto) 16.5 L Appling % (Auto) 8.0 Eos % (Auto) 1.2 Baso % (Auto) 0.9 Neut # (Auto) 5.7 Lymph # (Auto) 1.3 Appling # (Auto) 0.6 Eos # (Auto) 0.1 Baso # (Auto) 0.1 PT INR APTT Sodium 140 Potassium 4.2 Chloride 108 H Carbon Dioxide 24 Anion Gap 12 BUN 27 H Creatinine 1.6 H Est GFR ( Amer) 50 Est GFR (Non-Af Amer) 42 POC Glucose (mg/dL) 106 Random Glucose 106 Calcium 9.1 Total Bilirubin 0.7 AST 24 ALT 23 Alkaline Phosphatase 67 Troponin I < 0.0120 Total Protein 7.0 Albumin 3.4 L Globulin 3.7 Albumin/Globulin Ratio 0.9 L Triglycerides 72 Cholesterol 108 LDL Cholesterol Direct 63 HDL Cholesterol 37 04/16/18 16:30 WBC RBC Hgb Hct MCV MCH MCHC RDW Plt Count MPV Neut % (Auto) Lymph % (Auto) Appling % (Auto) Eos % (Auto) Baso % (Auto) Neut # (Auto) Lymph # (Auto) Appling # (Auto) Eos # (Auto) Baso # (Auto) PT 12.8 INR 1.1 APTT 31.9 Sodium Potassium Chloride Carbon Dioxide Anion Gap BUN Creatinine Est GFR ( Amer) Est GFR (Non-Af Amer) POC Glucose (mg/dL) Random Glucose Calcium Total Bilirubin AST ALT Alkaline Phosphatase Troponin I Total Protein Albumin Globulin Albumin/Globulin Ratio Triglycerides Cholesterol LDL Cholesterol Direct HDL Cholesterol Assessment & Plan - Assessment and Plan (Free Text) Assessment: Assessment/Plan: 83 YO male with PMHx of HTN, CKD stage III, HLD, BPH is admitted for bilateral subdural hematomas. Bilateral subdural hematomas -spontaneous, likely subacute given nature of hematomas, unknown etiology, AVMs? -CT head sig for Bilateral cerebral subacute subdural hematoma slightly larger on the right and slightly higher density on the left. Mild mass effect on the brain slightly more on the right. No evidence of significant midline shift. -NIHSS 0, no residual weakness -Neurosurgery consulted: neurochecks, keep head elevated, eval for evac in AM -Maintain BP, systolic <140 -neurochecks Q1H, keep head of the bed elevated -repeat CT head in AM -NSR with rate of 60-80's on quality assurance monitor final, follow up EKG HTN/HLD -chronic, controlled -c/w home meds -hold asa CKD stage III -chronic -c/w home meds BPH -chronic -s/p TURP -c/w home meds DVT prolx -hold anticoag at this time given hematomas -SCDs for now NIHSS Stroke Scale - Date/Time Evaluation Performed Date Performed: 04/16/18 Time Performed: 18:17 When Was NIHSS Performed: Baseline - How Severe is the Stoke Level of Consciousness: 0=Alert LOC to Questions: 0=Both comments correct LOC to commands: 0=Obeys both correctly Best Gaze: 0=Normal Visual: 0=No visual loss Facial: 0=Normal Motor Arm - Left: 0=No drift Motor Arm - Right: 0=No drift Motor Leg - Left: 0=No drift Motor Leg - Right: 0=No drift Limb Ataxia: 0=Absent Sensory: 0=Normal Best Language: 0=No aphasia Dysarthia: 0=Normal articulation Extinction & Inattention (Neglect): 0=Normal, no object Score: 0
--- NOTE | 2018-04-16 18:41 | CP.CCUPN ---
CCU Subjective - Physician Review Subjective (Free Text): 83M with PMH : HTN, Hyperlidemia, BPH / Obstructive uropathy / Neurogenic bladder, erectile dysfunction, CKD, admitted as Code Stroke eval in ER, c/o of aphasia lasting for 30 minutes, arrived into ER approx. 3 hours later, initial CT Brain showed bilat SDH with chronic changes and subacute component on R with mild mass effect, but no midline shift. Aphasia has resolved, normal mentation and no acute focal motor deficits. He denies any falls or head trauma, n/v, dizziness, headaches, vertigo, hearing or visual field deficits. He denies any recent fevers, chills, cough or chest discomfort, nor any recent acute illness, but admits to undergoing w/u recently for melanoma. Otherwise, awake, alert, conversant, in NAD. Other vitals and I/O's reviewed. No fever spikes last 24H. SBP 147, HR 73, breathing 18, spO2 97% on RA. ROS: No other pertinent negs or positives on 10+ system review. ALLERGIES: NKDA Home Meds: ASA< Lipitor, Urecholine, Flomax, Klonapin, Cardizem CD, Losartan, HCTZ, Renvela, Viagra PMSFH: All other Nursing and physician documentation reviewed to date; no new pertinent info noted relevant to current medical problems. EXAM- HEENT: no icterus, no gaze preference, Pupils 3 mm and reactive, gag present NECK: No JVD visible, supple, carotids equal upstroke bilat/no bruit CHEST: decreased BS at the bases, no wheezes audible HEART: regular, distant, S1S2, no rubs ABD: soft and nontender, no tympany, no guarding, no organomegaly, BS absent. EXT: no LE edema, no calf tenderness or palpable cords, distal pulses intact and symmetrical NEURO: AOx3, no focal motor weakness, GCS = 15 SKIN: no rashes, warm and dry LABS: WBC= 7.7 HGB= 14.7 PLTs= 269K Coags= normal Na= 140 K= 4.2 NA=488 HCO3= 24 BUN/Cr= 27/1.6 BS= 106 CXR: - clear lung fuentes ( my interp) EKG: pending IMPRESSION / MAJOR PROBLEMS NOW: 1. SubAcute / Chronic Bilat SDH Spontaneous, non-traumatic 2. Uncontrolled HTN 3. Azotemia / CKD III PLAN: 1. Neurochecks Q1H, seizure precautions, HOB elevation. NSG eval for appropriateness of hematoma evacuation. Neurology eval. 2. Keep SBPs no higher than 140, see orders. 3. Resume Cardizem, Losartan, HCTZ with dose adjustments prn. 4. Check EKG.
[2018-04-17] MEDS: Sodium Chloride 0.9% 1,000 ML IV SCH ×2 (03:17→12:57)
[2018-04-17 05:26] LABS: BASO # 0.1 K/uL (0.0-0.2); BASO % 1.2 % (0.0-2.0); EOS # 0.2 K/uL (0.0-0.7); EOS % 2.9 % (0.0-4.0); HEMOGLOBIN 13.5 g/dL (12.0-18.0); LYMPH # 1.6 K/uL (1.0-4.3); LYMPH % 27.6 % (20.0-40.0); MEAN CELL VOLUME 87.5 fl (80.0-94.0); MEAN CORPUSCULAR HEMOGLOBIN 29.4 pg (27.0-31.0); MEAN CORPUSCULAR HGB CONC 33.6 g/dL (33.0-37.0); MEAN PLATELET VOLUME 8.1 fl (7.2-11.7); MONO # 0.6 K/uL (0.0-0.8); MONO % 10.2 % (0.0-10.0); NEUT # 3.4 K/uL (1.8-7.0); NEUT % 58.1 % (50.0-75.0); NRBC % 0.1 % (0.0-0.0); RBC 4.58 Mil/uL (4.40-5.90); RED CELL DISTRIBUTION WIDTH 15.9 % (11.5-14.5); WHITE BLOOD COUNT 5.8 K/uL (4.8-10.8)
[2018-04-17 05:36] LABS: CALCIUM 8.6 mg/dL (8.4-10.2)
[2018-04-17] MEDS ORDERED: diltiaZEM 180 mg/24 Hours CD Cap PO SCH (09:00)
--- NOTE | 2018-04-17 09:00 | RAD ---
Date of service: 04/16/2018 HISTORY: Code Stroke COMPARISON: Chest radiographs 11/12/2016. FINDINGS: LUNGS: Penetration at the left base is limited. Interval airspace disease is not excluded here. None is appreciated the right with stable limited fibrosis noted at right base. PLEURA: No right pleural effusion appreciable. Prominent left epicardial fat is favored over small left pleural effusion. CARDIOVASCULAR: Calcific atherosclerotic changes are seen related to the thoracic aorta. Normal cardiac size. No pulmonary vascular congestion. OSSEOUS STRUCTURES: No significant abnormalities. VISUALIZED UPPER ABDOMEN: Normal. OTHER FINDINGS: None. IMPRESSION: Limited penetration at the left base. Potential left basilar airspace disease. Limited fibrosis right base. No right-sided airspace disease. Stable cardiomediastinal silhouette. No pulmonary vascular congestion.
--- NOTE | 2018-04-17 10:13 | CP.PCM.PN ---
Subjective - Date & Time of Evaluation Date of Evaluation: 04/17/18 Time of Evaluation: 10:15 - Subjective Subjective: Pt is seen and examined at bedside. No acute event overnight. Pt have no complains today, he was eating. Pt denies any headache, dizziness, chest pain, sob, abd pain, diarrhea, constipation, diarrhea, or any other symptoms, he is able to walk to bathroom with no difficulty. Objective - Vital Signs/Intake and Output Vital Signs (last 24 hours): Temp Pulse Resp BP Pulse Ox 97.9 F 57 L 15 155/87 H 97 04/17/18 08:00 04/17/18 09:38 04/17/18 08:00 04/17/18 09:38 04/17/18 08:00 Intake and Output: 04/17/18 04/17/18 06:59 18:59 Intake Total 1230 658 Output Total 800 Balance 430 658 - Medications Medications: Current Medications Acetaminophen (Tylenol 325mg Tab) 650 mg PO Q6 PRN PRN Reason: Pain, Mild (1-3) Amlodipine Besylate (Norvasc) 5 mg PO DAILY [facility] Last Admin: 04/17/18 09:38 Dose: 5 mg Atorvastatin Calcium (Lipitor) 10 mg PO HS [facility] Last Admin: 04/16/18 21:56 Dose: 10 mg Clonazepam (Klonopin) 0.5 mg PO DAILY PRN PRN Reason: Anxiety Hydrochlorothiazide (Hydrodiuril) 25 mg PO DAILY [facility] Last Admin: 04/17/18 09:15 Dose: 25 mg Sodium Chloride (Sodium Chloride 0.9%) 1,000 mls @ 100 mls/hr IV .Q10H [facility] Last Admin: 04/17/18 03:17 Dose: 100 mls/hr Labetalol HCl (Trandate) 20 mg IVP Q3 PRN PRN Reason: Systolic Blood Pressure Sevelamer Carbonate (Renvela) 800 mg PO TID [facility] Last Admin: 04/17/18 09:16 Dose: 800 mg Tamsulosin HCl (Flomax) 0.4 mg PO HS [facility] Last Admin: 04/16/18 21:56 Dose: 0.4 mg Valsartan (Diovan) 160 mg PO DAILY [facility] - Labs Labs: 04/17/18 04:40 04/17/18 04:40 PT 12.8 Seconds (9.8-13.1) 04/16/18 16:30 INR 1.1 04/16/18 16:30 APTT 31.9 Seconds (25.6-37.1) 04/16/18 16:30 - Constitutional Appears: Well, Non-toxic, No Acute Distress - Head Exam Head Exam: ATRAUMATIC, NORMAL INSPECTION, NORMOCEPHALIC - Eye Exam Eye Exam: EOMI, Normal appearance, PERRL Pupil Exam: NORMAL ACCOMODATION, PERRL - ENT Exam ENT Exam: Mucous Membranes Moist, Normal Exam - Neck Exam Neck Exam: Full ROM, Normal Inspection - Respiratory Exam Respiratory Exam: Clear to Ausculation Bilateral, NORMAL BREATHING PATTERN - Cardiovascular Exam Cardiovascular Exam: REGULAR RHYTHM, +S1, +S2 - GI/Abdominal Exam GI & Abdominal Exam: Soft, Normal Bowel Sounds - Extremities Exam Extremities Exam: Full ROM, Normal Capillary Refill, Normal Inspection - Back Exam Back Exam: NORMAL INSPECTION - Neurological Exam Neurological Exam: Alert, Awake, CN II-XII Intact, Oriented x3 - Psychiatric Exam Psychiatric exam: Normal Affect, Normal Mood - Skin Skin Exam: Dry, Intact, Normal Color, Warm Assessment and Plan - Assessment and Plan (Free Text) Assessment: 83 yo male with PMH of HTN, CKD stage 3, HLD , BPH admitted for b/l subdural hematomas. -CT head sig for Bilateral cerebral subacute subdural hematoma slightly larger on the right and slightly higher density on the left. Mild mass effect on the brain slightly more on the right. No evidence of significant midline shift. -EKG: NSR with rate of 60-80's on cardiac rn, Bilateral subdural hematomas -Spontaneous subactue/acute hematoma unknown etiology, possible AVM? -NIHSS 0, no residual weakness -Neurosurgery recommendation neurochecks, keep head elevated, eval for evac in AM -Maintain BP, systolic <140 -neurochecks Q1H, keep head of the bed elevated -f/u CT scan - Follow up neuro consult HTN/HLD -chronic, controlled -Continue home meds -Hold aspirin CKD stage III -chronic -Continued home meds BPH -chronic -status post TURP -Continue home meds DVT prolx -hold anticoag at this time given hematomas -SCDs for now
--- NOTE | 2018-04-17 10:41 | CP.CCUPN ---
<ClaudeJimmyJoss - Last Filed: 04/17/18 11:13> CCU Subjective - Physician Review Subjective (Free Text): 04/17/18 09:32 >>S: 83 y/o M was seen and examined by bedside. Pt is alert, responsive and reports feeling well, denies chest pain, SOB, paresthesias, weakness, dizziness, visual/hearing disturbances or headache. Pt afebrile, tolerating PO with NO acute events overnight. 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 >>ROS: No other pertinent negatives or positives on 10+ system review. >>VITAL SIGNS: No fever overnight. HR 57. BP 155/87. RR 15. O2 sat: 97% on RA. >>PHYSICAL EXAM: --GEN: Pt AAOx3, not in acute distress. --HEENT: normocephalic. no icterus, EOMI, PERRL, ,moist mucous membranes on oropharynx. --NECK: No JVD visible, supple, carotids equal upstroke bilat/no bruit --LUNGS: Decreased breath sounds at bases, no wheezes, no rales, no ronchi, --HEART: Regular rhythm, distant, S1S2 present. --ABD: Soft and nontender, no tympany, no guarding, no organomegaly. --EXT: No cyanosis or edema, distal pulses intact and symmetrical --NEURO: AAOx3, no focal motor weakness, GCS = 15, CN 2-12 grossly intact. --SKIN: warm and dry >LABS: --WBC 5.8 --Hgb 13.25 --Hct 40 --Plt 251K --Na 140 --K 3.6 --Cl 112 --HCO3 24 --BUN/Creat 26/1.6 --BG 91 --CT Head: b/l subdural hematomas, R greater than left, with mild mass effect. >>IMPRESSION / MAJOR PROBLEMS NOW: 1. SubAcute/Chronic Bilateral Subdural Hematoma-Spontaneous, Non-traumatic 2. Uncontrolled HTN 3. Bradycardia 4. Azotemia / CKD III >>PLAN --Stable, following commands, no focal neuro deficits --F/U repeat CT Head. Considering MRI Brain --F/U Neuro-Surgery and Neurology recommendations --PO home medications were initiated. --Due to elevated BP and bradycardia, will stop Cardizem and initiate PO Norvasc. --Continue management as per primary care team. Critical Care Time Spent (in minutes): 35 <Homero Fung - Last Filed: 04/17/18 13:28> CCU Subjective - Physician Review Subjective (Free Text): Attestation: Patient seen and examined at the bedside with Resident Dr. Ang Arce; and I agree with his outline of plans and management documented above and below, reflecting my review of all applicable clinical data, and participation in the care of the patient throughout the day in ICU; today, April 17, 2018.
--- NOTE | 2018-04-17 14:52 | CT ---
Date of service: 04/17/2018 PROCEDURE: CT HEAD WITHOUT CONTRAST. HISTORY: subdural hematoma COMPARISON: None available. TECHNIQUE: Axial computed tomography images were obtained through the head/brain without intravenous contrast. Radiation dose: Total exam DLP = 1666.93 mGy-cm. This CT exam was performed using one or more of the following dose reduction techniques: Automated exposure control, adjustment of the mA and/or kV according to patient size, and/or use of iterative reconstruction technique. FINDINGS: HEMORRHAGE: Bilateral convexity subdural hematomata are reiterated, primarily subacute in overall density appearance though trace slightly hyperdense foci are scattered at the left greater than right subdural collections once again. No significant interval changes identified in overall volumes of hemorrhagic material with the right subdural greater in overall volume at the right than the left once again. No intraparenchymal hemorrhage appreciable throughout. BRAIN: No interval midline shift with diffuse cerebral atrophy and chronic microangiopathy appearing mild in overall severity. Likely slightly diminished sulcation is caused by the bilateral subdural hematomas at the mid and superior cerebral levels. No acute parenchymal findings. Basilar cisterns remain widely patent with posterior fossa contents unremarkable appearing once again. VENTRICLES: Unremarkable. No hydrocephalus. CALVARIUM: Unremarkable. PARANASAL SINUSES: Unremarkable as visualized. No significant inflammatory changes. MASTOID AIR CELLS: Unremarkable as visualized. No inflammatory changes. OTHER FINDINGS: None. IMPRESSION: Stable bilateral subacute subdural hematomata remaining somewhat larger in volume at the right when compared to the left. No definite acute hemorrhage with left subdural hematoma somewhat more heterogeneous in density than the right once again. No definite significant midline shift appreciable. Basilar cisterns remain prominent. Likely mass effect effaces cerebral vertex sulci mildly once again. Diffuse cerebral atrophy reiterated as well as limited chronic microangiopathy. No acute parenchymal findings intrinsically.
--- NOTE | 2018-04-17 20:02 | CARD ---
APPROVED REPORT Date of service: 04/16/2018 EKG Measurement Heart [id number] <Conclusion> Normal sinus rhythm Left axis deviation Inferior infarct, age undetermined Abnormal ECG
[2018-04-17] MEDS: Nicardipine 20 MG/200 ML 20 MG/200 ML BAG IV ONE (20:20)
[2018-04-18] MEDS: Nicardipine 20 MG/200 ML 20 MG/200 ML BAG IV ONE (00:07)
[2018-04-18] MEDS: Nicardipine HCl 40 MG/200 ML 40 MG/200 ML SOL IV SCH ×3 (04:39→17:16)
--- NOTE | 2018-04-18 07:58 | CP.CCUPN ---
CCU Subjective - Physician Review Events Since Last Encounter (Free Text): Patient awake, no distress, no fever, no vomiting, no chest apin , events reviewed CCU Objective - Vital Signs / Intake & Output Vital Signs (Last 4 hours): Vital Signs Temp Pulse Resp BP Pulse Ox 04/18/18 07:00 56 L 18 118/56 L 95 04/18/18 06:00 58 L 17 99/55 L 95 04/18/18 05:00 53 L 18 98/64 L 96 04/18/18 04:00 98.3 F 55 L 20 107/73 95 Intake and Output (Last 8hrs): Intake & Output 04/17/18 04/18/18 04/18/18 22:59 06:59 14:59 Intake Total 680 720 Output Total 1450 900 Balance -770 -180 Weight 201 lb Intake: IV 10 450 Oral 670 270 Output: Urine 1450 900 Urine, Voided 1450 900 Other: # Voids Urine, Voided 1 - Physical Exam Head: Positive for: Normocephalic Pupils: Positive for: PERRL Conjunctiva: Positive for: Normal Mouth: Positive for: Moist Mucous Membranes Pharnyx: Positive for: Normal Nose (Internal): Positive for: Normal Inspection Neck: Positive for: Normal Range of Motion Respiratory/Chest: Positive for: Clear to Auscultation Cardiovascular: Positive for: Normal S1, S2 Abdomen: Positive for: Normal Bowel Sounds Upper Extremity: Positive for: Normal Inspection Lower Extremity: Positive for: Normal Inspection Neurological: Positive for: Speech Normal Skin: Positive for: Warm, Dry Psychiatric: Positive for: Alert - Medications Active Medications: Active Medications Generic Name Dose Route Start Last Admin Trade Name Freq PRN Reason Stop Dose Admin Acetaminophen 650 mg 04/16/18 19:16 Tylenol 325mg Tab PO Q6 PRN Pain, Mild (1-3) Amlodipine Besylate 5 mg 04/17/18 09:00 04/17/18 09:38 Norvasc PO 5 mg DAILY AJMES Administration Amlodipine Besylate 10 mg 04/18/18 09:00 Norvasc PO DAILY JAMES Atorvastatin Calcium 10 mg 04/16/18 22:00 04/18/18 00:02 Lipitor PO 10 mg HS JAMES Administration Bethanechol Chloride 25 mg 04/17/18 17:00 04/17/18 16:42 Urecholine PO 25 mg TID JAMES Administration Bethanechol Chloride 50 mg 04/17/18 22:00 04/18/18 00:00 Urecholine PO 50 mg HS JAMES Administration Clonazepam 0.5 mg 04/16/18 17:20 04/17/18 18:24 Klonopin PO 0.5 mg DAILY PRN Administration Anxiety Home Med 80 mg 04/18/18 09:00 Febuxostat [Uloric] PO DAILY JAMES Hydrochlorothiazide 25 mg 04/17/18 09:00 04/17/18 09:15 Hydrodiuril PO 25 mg DAILY JAMES Administration Sodium Chloride 1,000 mls @ 100 mls/hr 04/16/18 16:30 04/17/18 12:57 Sodium Chloride 0.9% IV Not Given .Q10H JAMES Nicardipine HCl 40 mg in 200 mls @ 25 mls/hr 04/18/18 00:15 04/18/18 04:39 Cardene 40mg/200ml Premixed IV 5 mg/hr .Q8H JAMES 25 mls/hr Administration Protocol 5 MG/HR Labetalol HCl 20 mg 04/16/18 18:31 Trandate IVP Q3 PRN Systolic Blood Pressure Sevelamer Carbonate 800 mg 04/17/18 09:00 04/17/18 16:41 Renvela PO 800 mg TID JAMES Administration Sodium Bicarbonate 650 mg 04/17/18 21:00 04/18/18 00:00 Sodium Bicarbonate Tab PO 650 mg Q12 JAMES Administration Tamsulosin HCl 0.4 mg 04/16/18 22:00 04/18/18 00:01 Flomax PO 0.4 mg HS JAMES Administration Temazepam 15 mg 04/18/18 00:16 04/18/18 00:42 Restoril PO 15 mg HS PRN Administration Sleep Valsartan 160 mg 04/17/18 09:00 04/17/18 11:56 Diovan PO Not Given DAILY JAMES - Patient Studies Lab Studies: Lab Studies 04/16/18 Range/Units 17:03 Hemoglobin A1c 5.1 (4.2-6.5) % Laboratory Results - last 24 hr 04/16/18 17:03 Hemoglobin A1c 5.1 Fingerstick Blood Sugar Results: 106 Critical Care Progress Note - Nutrition Nutrition: Nutrition Category Date Time Status Heart Healthy Diet [DIET] Diets 04/16/18 Dinner Active Assessment/Plan - Assessment and Plan (Free Text) Assessment: A/P Bilateral sudural hematoma, uncontrolled HTN, CKD - Neuro check - Neurosurgery follow up - Neurology follow up - BP control - Continue meds
--- NOTE | 2018-04-18 11:52 | CP.PCM.PN ---
<Antonio Reid - Last Filed: 04/18/18 12:03> Subjective - Date & Time of Evaluation Date of Evaluation: 04/18/18 Time of Evaluation: 08:20 - Subjective Subjective: Pt seen and examined at bedside s/p MRI brain. Pt denies significant overnight events. Had normal bowel movement this AM. Tolerating PO diet. Afebrile. Objective - Vital Signs/Intake and Output Vital Signs (last 24 hours): Temp Pulse Resp BP Pulse Ox 98.1 F 55 L 12 115/69 96 04/18/18 08:00 04/18/18 11:00 04/18/18 11:00 04/18/18 11:00 04/18/18 11:00 Intake and Output: 04/18/18 04/18/18 06:59 18:59 Intake Total 1250 472 Output Total 1350 400 Balance -100 72 - Medications Medications: Current Medications Acetaminophen (Tylenol 325mg Tab) 650 mg PO Q6 PRN PRN Reason: Pain, Mild (1-3) Amlodipine Besylate (Norvasc) 5 mg PO DAILY [facility] Last Admin: 04/17/18 09:38 Dose: 5 mg Amlodipine Besylate (Norvasc) 10 mg PO DAILY [facility] Last Admin: 04/18/18 08:26 Dose: 10 mg Atorvastatin Calcium (Lipitor) 10 mg PO HS [facility] Last Admin: 04/18/18 00:02 Dose: 10 mg Bethanechol Chloride (Urecholine) 25 mg PO TID [facility] Last Admin: 04/18/18 08:29 Dose: 25 mg Bethanechol Chloride (Urecholine) 50 mg PO HS [facility] Last Admin: 04/18/18 00:00 Dose: 50 mg Clonazepam (Klonopin) 0.5 mg PO DAILY PRN PRN Reason: Anxiety Last Admin: 04/17/18 18:24 Dose: 0.5 mg Home Med (Febuxostat [Uloric]) 80 mg PO DAILY [facility] Hydrochlorothiazide (Hydrodiuril) 25 mg PO DAILY [facility] Last Admin: 04/18/18 08:24 Dose: 25 mg Sodium Chloride (Sodium Chloride 0.9%) 1,000 mls @ 100 mls/hr IV .Q10H [facility] Last Admin: 04/17/18 12:57 Dose: Not Given Nicardipine HCl (Cardene 40mg/200ml Premixed) 40 mg in 200 mls @ 25 mls/hr IV .Q8H [facility]; Protocol Last Titration: 04/18/18 08:25 Dose: 0 mg/hr, 0 mls/hr Labetalol HCl (Trandate) 20 mg IVP Q3 PRN PRN Reason: Systolic Blood Pressure Sevelamer Carbonate (Renvela) 800 mg PO TID [facility] Last Admin: 04/18/18 08:27 Dose: 800 mg Sodium Bicarbonate (Sodium Bicarbonate Tab) 650 mg PO Q12 [facility] Last Admin: 04/18/18 08:28 Dose: 650 mg Tamsulosin HCl (Flomax) 0.4 mg PO HS [facility] Last Admin: 04/18/18 00:01 Dose: 0.4 mg Temazepam (Restoril) 15 mg PO HS PRN PRN Reason: Sleep Last Admin: 04/18/18 00:42 Dose: 15 mg Valsartan (Diovan) 160 mg PO DAILY [facility] Last Admin: 04/17/18 11:56 Dose: Not Given - Labs Labs: 04/17/18 04:40 04/17/18 04:40 PT 12.8 Seconds (9.8-13.1) 04/16/18 16:30 INR 1.1 04/16/18 16:30 APTT 31.9 Seconds (25.6-37.1) 04/16/18 16:30 - Constitutional Appears: Well, Non-toxic - Eye Exam Eye Exam: EOMI - ENT Exam ENT Exam: Mucous Membranes Moist - Neck Exam Neck Exam: Full ROM - Respiratory Exam Respiratory Exam: Clear to Ausculation Bilateral, NORMAL BREATHING PATTERN. absent: Wheezes - Cardiovascular Exam Cardiovascular Exam: REGULAR RHYTHM, +S1, +S2 - GI/Abdominal Exam GI & Abdominal Exam: Soft, Normal Bowel Sounds. absent: Tenderness - Extremities Exam Extremities Exam: absent: Calf Tenderness - Neurological Exam Neurological Exam: Alert, Awake, CN II-XII Intact, Oriented x3 - Psychiatric Exam Psychiatric exam: Normal Affect, Normal Mood - Skin Skin Exam: Dry, Warm Assessment and Plan - Assessment and Plan (Free Text) Plan: 83 yo male with PMH of HTN, CKD stage 3, DLD, BPH admitted for bilateral sub dural hematomas. -CT head sig for Bilateral cerebral subacute subdural hematoma slightly larger on the right and slightly higher density on the left. Mild mass effect on the brain slightly more on the right. No evidence of significant midline shift. -EKG: NSR with rate of 60-80's on potline monitor -MRI brain: pending -CT/MR Angio unable to be performed 2/2 decreased GFR: 42 Bilateral subdural hematomas -Spontaneous subactue/acute hematoma unknown etiology. (possible AVM) -NIHSS 0, no residual weakness -Neurosurgery: neuro checks q1Hr, keep head elevated -maintain BP: systolic <140 -f/u MRI: brain -f/u neuro and neuro surgery recs HTN -chronic, controlled -maintain BP: systolic <140 -Continue home meds -Hold aspirin CKD stage III -chronic -Continued home meds Dyslipidemia -Continue Atorvastatin BPH -chronic -status post TURP -Continue home meds DVT prophylaxis: -hold anticoag 2/2 b/l hematomas -SCDs <Ann Marie Burgos - Last Filed: 04/19/18 09:31> Objective - Vital Signs/Intake and Output Vital Signs (last 24 hours): Temp Pulse Resp BP Pulse Ox 97.1 F L 58 L 11 L 138/86 95 04/19/18 08:00 04/19/18 09:00 04/19/18 09:00 04/19/18 09:00 04/19/18 09:00 Intake and Output: 04/19/18 04/19/18 06:59 18:59 Intake Total 270 240 Output Total 1900 300 Balance -1630 -60 - Medications Medications: Current Medications Acetaminophen (Tylenol 325mg Tab) 650 mg PO Q6 PRN PRN Reason: Pain, Mild (1-3) Amlodipine Besylate (Norvasc) 10 mg PO DAILY [facility] Last Admin: 04/18/18 08:26 Dose: 10 mg Atorvastatin Calcium (Lipitor) 10 mg PO HS [facility] Last Admin: 04/18/18 22:21 Dose: 10 mg Bethanechol Chloride (Urecholine) 25 mg PO TID [facility] Last Admin: 04/19/18 09:25 Dose: 25 mg Bethanechol Chloride (Urecholine) 50 mg PO HS [facility] Last Admin: 04/18/18 22:21 Dose: 50 mg Clonazepam (Klonopin) 0.5 mg PO DAILY PRN PRN Reason: Anxiety Last Admin: 04/17/18 18:24 Dose: 0.5 mg Home Med (Febuxostat [Uloric]) 80 mg PO DAILY [facility] Hydrochlorothiazide (Hydrodiuril) 25 mg PO DAILY [facility] Last Admin: 04/19/18 09:23 Dose: 25 mg Sodium Chloride (Sodium Chloride 0.9%) 1,000 mls @ 100 mls/hr IV .Q10H [facility] Last Admin: 04/18/18 18:15 Dose: Not Given Nicardipine HCl (Cardene 40mg/200ml Premixed) 40 mg in 200 mls @ 25 mls/hr IV .Q8H [facility]; Protocol Last Admin: 04/18/18 17:16 Dose: Not Given Labetalol HCl (Trandate) 20 mg IVP Q3 PRN PRN Reason: Systolic Blood Pressure Sevelamer Carbonate (Renvela) 800 mg PO TID [facility] Last Admin: 04/19/18 09:25 Dose: 800 mg Sodium Bicarbonate (Sodium Bicarbonate Tab) 650 mg PO Q12 [facility] Last Admin: 04/19/18 09:25 Dose: 650 mg Tamsulosin HCl (Flomax) 0.4 mg PO HS [facility] Last Admin: 04/18/18 22:21 Dose: 0.4 mg Temazepam (Restoril) 15 mg PO HS PRN PRN Reason: Sleep Last Admin: 04/19/18 00:16 Dose: 15 mg Valsartan (Diovan) 160 mg PO DAILY [facility] Last Admin: 04/17/18 11:56 Dose: Not Given - Labs Labs: 04/19/18 05:30 04/19/18 05:30 PT 12.8 Seconds (9.8-13.1) 04/16/18 16:30 INR 1.1 04/16/18 16:30 APTT 31.9 Seconds (25.6-37.1) 04/16/18 16:30 Attending/Attestation - Attestation I have personally seen and examined this patient.: Yes I have fully participated in the care of the patient.: Yes I have reviewed all pertinent clinical information, including history, physical exam and plan: Yes Notes (Text): 04/19/18 09:30 Seen examined and discussed with resident. Agree with findings and plan as above. REPEAT CT HEAD is stable without any new changes. Patient is completely asymptomatic, and is at baseline. HD stable, no acute distress.
[2018-04-18] MEDS: Sodium Chloride 0.9% 1,000 ML IV SCH ×2 (13:42→18:15)
--- NOTE | 2018-04-18 18:25 | CARD ---
APPROVED REPORT Date of service: 04/18/2018 EXAM: Two-dimensional and M-mode echocardiogram with Doppler and color Doppler. Other Information Quality : GoodRhythm : NSR INDICATION Stroke 2D DIMENSIONS IVSd1.22 (0.7-1.1cm)LVDd4.30 (3.9-5.9cm) PWd0.45 (0.7-1.1cm)IVSs2.24 (0.8-1.2cm) LA Gorfnx29 (18-58mL)LVDs2.09 (2.5-4.0cm) FS (%) 51.4 %PWs1.08 (0.8-1.2cm) SV60.83 mlLVEF (%)65.4 (>50%) CO3.50 L/min M-Mode DIMENSIONS Left Atrium (MM)4.05 (2.5-4.0cm)Aortic Root3.34 (2.2-3.7cm) Aortic Valve AoV Peak Ojtjfgkc307.5cm/sAoV VTI26.7cmAO Peak GR.7mmHg LVOT Peak Ziqftoey859.7cm/sLVOT VTI34.01cmAO Mean GR.4mmHg AI P 1/2 [id number] Mitral Valve MV E Lcpflakz93.6cm/sMV DECEL [id number] A Suowhfnm60.6cm/s MV AOP315mpV/A ratio0.5MVA (PHT)1.96cm2 TDI Lateral E' Peak V7.01cm/sMedial E' Peak V9.29cm/sE/Lateral E'6.1 E/Medial E'4.6 Pulmonary Valve RVOT VTI19.0cm Tricuspid Valve TR Peak Mivyuehq650lq/sTR Peak Gr.51bcCfPSSN20slWh LEFT VENTRICLE The left ventricle is normal size. There is normal left ventricular wall thickness. The left ventricular systolic function is normal. The estimated ejection fraction is 60-65% No regional wall motion abnormalities noted.. Transmitral Doppler flow pattern is Grade I-abnormal relaxation pattern. No left ventricle thrombus noted on this study. There is no ventricular septal defect visualized. There is no left ventricular aneurysm. There is no mass noted in the left ventricle. RIGHT VENTRICLE The right ventricle is normal size. There is normal right ventricular wall thickness. The right ventricular systolic function is normal. ATRIA The left atrium is mildly dilated. The right atrium size is normal. The interatrial septum is intact with no evidence for an atrial septal defect. AORTIC VALVE The aortic valve is normal in structure. Mild aortic regurgitation is present. There is no aortic valvular stenosis. There is no aortic valvular vegetation. MITRAL VALVE The mitral valve is normal in structure. There is no evidence of mitral valve prolapse. There is no mitral valve stenosis. There is trace mitral valve regurgitation noted. TRICUSPID VALVE The tricuspid valve is normal in structure. There is trace to mild tricuspid valve regurgitation noted. RVSP is calculated at 32 mm Hg. There is no tricuspid valve prolapse or vegetation. There is no tricuspid valve stenosis. PULMONIC VALVE The pulmonary valve is normal in structure. There is trace pulmonic valvular regurgitation. There is no pulmonic valvular stenosis. GREAT VESSELS The aortic root is normal in size. 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 Consider further evaluation with CT scan. The pulmonary artery is normal. The IVC is normal in size and collapses >50% with inspiration. PERICARDIAL EFFUSION There is no pericardial effusion. There is no pleural effusion. <Conclusion> The estimated ejection fraction is 60-65% Transmitral Doppler flow pattern is Grade I-abnormal relaxation pattern. The left atrium is mildly dilated. Mild aortic regurgitation is present. There is trace to mild tricuspid valve regurgitation noted. RVSP is calculated at 32 mm Hg. The ascending aorta is severely dilated. Consider further evaluation with CT scan.
[2018-04-18] MEDS: Bethanechol 50 MG TAB PO SCH ×2 (22:21)
[2018-04-19 06:12] LABS: HEMOGLOBIN 14.3 g/dL (12.0-18.0); MEAN CELL VOLUME 87.5 fl (80.0-94.0); MEAN CORPUSCULAR HEMOGLOBIN 29.2 pg (27.0-31.0); MEAN CORPUSCULAR HGB CONC 33.4 g/dL (33.0-37.0); RBC 4.92 Mil/uL (4.40-5.90); RED CELL DISTRIBUTION WIDTH 16.3 % (11.5-14.5); WHITE BLOOD COUNT 5.6 K/uL (4.8-10.8)
--- NOTE | 2018-04-19 07:35 | CP.CCUPN ---
CCU Subjective - Physician Review Events Since Last Encounter (Free Text): Patient awake, no distress, no fever, no vomiting, no chest apin , events reviewed CCU Objective - Vital Signs / Intake & Output Vital Signs (Last 4 hours): Vital Signs Temp Pulse Resp BP Pulse Ox 04/19/18 06:00 65 23 128/77 96 04/19/18 04:00 98.1 F 57 L 21 119/73 96 Intake and Output (Last 8hrs): Intake & Output 04/18/18 04/19/18 04/19/18 22:59 06:59 14:59 Intake Total 540 130 Output Total 600 1300 Balance -60 -1170 Weight 198 lb Intake: IV 20 10 Oral 520 120 Output: Urine 600 1300 Urine, Voided 600 1300 Other: # Voids Urine, Voided 2 - Physical Exam Head: Positive for: Normocephalic Pupils: Positive for: PERRL Conjunctiva: Positive for: Normal Mouth: Positive for: Moist Mucous Membranes Pharnyx: Positive for: Normal Nose (Internal): Positive for: Normal Inspection Neck: Positive for: Normal Range of Motion Respiratory/Chest: Positive for: Clear to Auscultation Cardiovascular: Positive for: Normal S1, S2 Abdomen: Positive for: Normal Bowel Sounds Upper Extremity: Positive for: Normal Inspection Lower Extremity: Positive for: Normal Inspection Neurological: Positive for: Speech Normal Skin: Positive for: Warm, Dry Psychiatric: Positive for: Alert - Medications Active Medications: Active Medications Generic Name Dose Route Start Last Admin Trade Name Freq PRN Reason Stop Dose Admin Acetaminophen 650 mg 04/16/18 19:16 Tylenol 325mg Tab PO Q6 PRN Pain, Mild (1-3) Amlodipine Besylate 10 mg 04/18/18 09:00 04/18/18 08:26 Norvasc PO 10 mg DAILY JAMES Administration Atorvastatin Calcium 10 mg 04/16/18 22:00 04/18/18 22:21 Lipitor PO 10 mg HS JAMES Administration Bethanechol Chloride 25 mg 04/17/18 17:00 04/18/18 17:15 Urecholine PO 25 mg TID JAMES Administration Bethanechol Chloride 50 mg 04/17/18 22:00 04/18/18 22:21 Urecholine PO 50 mg HS JAMES Administration Clonazepam 0.5 mg 04/16/18 17:20 11/30/18 18:24 Klonopin PO 0.5 mg DAILY PRN Administration Anxiety Home Med 80 mg 04/18/18 09:00 Febuxostat [Uloric] PO DAILY JAMES Hydrochlorothiazide 25 mg 04/17/18 09:00 04/18/18 08:24 Hydrodiuril PO 25 mg DAILY JAMES Administration Sodium Chloride 1,000 mls @ 100 mls/hr 04/16/18 16:30 04/18/18 18:15 Sodium Chloride 0.9% IV Not Given .Q10H JAMES Nicardipine HCl 40 mg in 200 mls @ 25 mls/hr 04/18/18 00:15 04/18/18 17:16 Cardene 40mg/200ml Premixed IV Not Given .Q8H JAMES Protocol 5 MG/HR Labetalol HCl 20 mg 04/16/18 18:31 Trandate IVP Q3 PRN Systolic Blood Pressure Sevelamer Carbonate 800 mg 04/17/18 09:00 04/18/18 17:15 Renvela PO 800 mg TID JAMES Administration Sodium Bicarbonate 650 mg 04/17/18 21:00 04/18/18 22:21 Sodium Bicarbonate Tab PO 650 mg Q12 JAMES Administration Tamsulosin HCl 0.4 mg 04/16/18 22:00 04/18/18 22:21 Flomax PO 0.4 mg HS JAMES Administration Temazepam 15 mg 04/18/18 00:16 04/19/18 00:16 Restoril PO 15 mg HS PRN Administration Sleep Valsartan 160 mg 04/17/18 09:00 04/17/18 11:56 Diovan PO Not Given DAILY JAMES - Patient Studies Lab Studies: Microbiology Studies 04/16/18 05:00 MRSA Culture (Admit) - Final Naris MRSA NOT DETECTED Lab Studies 04/19/18 04/19/18 Range/Units 05:30 05:30 WBC 5.6 (4.8-10.8) K/uL RBC 4.92 (4.40-5.90) Mil/uL Hgb 14.3 (12.0-18.0) g/dL Hct 43.0 (35.0-51.0) % MCV 87.5 (80.0-94.0) fl MCH 29.2 (27.0-31.0) pg MCHC 33.4 (33.0-37.0) g/dL RDW 16.3 H (11.5-14.5) % Plt Count 274 (130-400) K/uL Sodium 137 (132-148) mmol/l Potassium 3.3 L (3.6-5.0) MMOL/L Chloride 108 H (98-107) mmol/L Carbon Dioxide 25 (22-30) mmol/L Anion Gap 7 L (10-20) BUN 28 H (9-20) mg/dl Creatinine 1.5 (0.8-1.5) mg/dl Est GFR ( Amer) 54 Est GFR (Non-Af Amer) 45 Random Glucose 119 H (75-110) mg/dL Calcium 9.0 (8.4-10.2) mg/dL Laboratory Results - last 24 hr 04/19/18 04/19/18 05:30 05:30 WBC 5.6 RBC 4.92 Hgb 14.3 Hct 43.0 MCV 87.5 MCH 29.2 MCHC 33.4 RDW 16.3 H Plt Count 274 Sodium 137 Potassium 3.3 L Chloride 108 H Carbon Dioxide 25 Anion Gap 7 L BUN 28 H Creatinine 1.5 Est GFR ( Amer) 54 Est GFR (Non-Af Amer) 45 Random Glucose 119 H Calcium 9.0 Fingerstick Blood Sugar Results: 106 Critical Care Progress Note - Nutrition Nutrition: Nutrition Category Date Time Status Heart Healthy Diet [DIET] Diets 04/16/18 Dinner Active Assessment/Plan - Assessment and Plan (Free Text) Assessment: A/P Bilateral sudural hematoma, uncontrolled HTN, CKD - Neuro check - Neurosurgery follow up - Neurology follow up - BP control - Continue meds
[2018-04-19] MEDS ORDERED: Potassium Chloride 20 mEq ER Tab PO ONE (08:17)
--- NOTE | 2018-04-19 09:53 | CP.PCM.PN ---
<Saima Ha - Last Filed: 04/19/18 12:18> Subjective - Date & Time of Evaluation Date of Evaluation: 04/19/18 Time of Evaluation: 09:51 - Subjective Subjective: Patient seen and examined at bedside, awake and alert. Charts, labs, and nurse notes reviewed. He denies headache, numbness/tingling, visual changes, confusion. Objective - Vital Signs/Intake and Output Vital Signs (last 24 hours): Temp Pulse Resp BP Pulse Ox 97.1 F L 72 11 L 138/86 95 04/19/18 08:00 04/19/18 09:36 04/19/18 09:00 04/19/18 09:36 04/19/18 09:00 Intake and Output: 04/19/18 04/19/18 06:59 18:59 Intake Total 270 240 Output Total 1900 300 Balance -1630 -60 - Medications Medications: Current Medications Acetaminophen (Tylenol 325mg Tab) 650 mg PO Q6 PRN PRN Reason: Pain, Mild (1-3) Amlodipine Besylate (Norvasc) 10 mg PO DAILY [facility] Last Admin: 04/19/18 09:36 Dose: 10 mg Atorvastatin Calcium (Lipitor) 10 mg PO HS [facility] Last Admin: 04/18/18 22:21 Dose: 10 mg Bethanechol Chloride (Urecholine) 25 mg PO TID [facility] Last Admin: 04/19/18 09:25 Dose: 25 mg Bethanechol Chloride (Urecholine) 50 mg PO HS [facility] Last Admin: 04/18/18 22:21 Dose: 50 mg Clonazepam (Klonopin) 0.5 mg PO DAILY PRN PRN Reason: Anxiety Last Admin: 04/17/18 18:24 Dose: 0.5 mg Home Med (Febuxostat [Uloric]) 80 mg PO DAILY [facility] Hydrochlorothiazide (Hydrodiuril) 25 mg PO DAILY [facility] Last Admin: 04/19/18 09:23 Dose: 25 mg Sodium Chloride (Sodium Chloride 0.9%) 1,000 mls @ 100 mls/hr IV .Q10H [facility] Last Admin: 04/18/18 18:15 Dose: Not Given Nicardipine HCl (Cardene 40mg/200ml Premixed) 40 mg in 200 mls @ 25 mls/hr IV .Q8H [facility]; Protocol Last Admin: 04/18/18 17:16 Dose: Not Given Labetalol HCl (Trandate) 20 mg IVP Q3 PRN PRN Reason: Systolic Blood Pressure Sevelamer Carbonate (Renvela) 800 mg PO TID [facility] Last Admin: 04/19/18 09:25 Dose: 800 mg Sodium Bicarbonate (Sodium Bicarbonate Tab) 650 mg PO Q12 [facility] Last Admin: 04/19/18 09:25 Dose: 650 mg Tamsulosin HCl (Flomax) 0.4 mg PO HS [facility] Last Admin: 04/18/18 22:21 Dose: 0.4 mg Temazepam (Restoril) 15 mg PO HS PRN PRN Reason: Sleep Last Admin: 04/19/18 00:16 Dose: 15 mg Valsartan (Diovan) 160 mg PO DAILY [facility] Last Admin: 04/17/18 11:56 Dose: Not Given - Labs Labs: 04/19/18 05:30 04/19/18 05:30 PT 12.8 Seconds (9.8-13.1) 04/16/18 16:30 INR 1.1 04/16/18 16:30 APTT 31.9 Seconds (25.6-37.1) 04/16/18 16:30 - Constitutional Appears: No Acute Distress - Eye Exam Eye Exam: EOMI Pupil Exam: PERRL - ENT Exam ENT Exam: Mucous Membranes Moist - Respiratory Exam Respiratory Exam: Clear to Ausculation Bilateral, NORMAL BREATHING PATTERN - Cardiovascular Exam Cardiovascular Exam: REGULAR RHYTHM, +S1, +S2 - GI/Abdominal Exam GI & Abdominal Exam: Soft, Normal Bowel Sounds. absent: Tenderness - Neurological Exam Neurological Exam: Alert, Awake, CN II-XII Intact, Oriented x3 - Psychiatric Exam Psychiatric exam: Normal Affect - Skin Skin Exam: Dry, Intact, Warm Assessment and Plan - Assessment and Plan (Free Text) Assessment: Plan: 83 y/o male w/ pmhx of HTN, CKD III, DLD, BPH admitted for bilateral subdural hematomas. -Head and Neck MRAs pending -CT head 04/17: stable bilateral subacute subdural hematomata remaining somewhat larger in volume R>L. No definite aute hemorrhage w/ heterogenous density L>R. No definite significant midline shift appreciable. Basilar cisterns remain prominent. Likely mass effect effaces cerebral vertex sulci mildly again -CT head 04/16: sig for Bilateral cerebral subacute subdural hematoma slightly larger on the right and slightly higher density on the left. Mild mass effect on the brain slightly more on the right. No evidence of significant midline shift. -EKG: NSR with rate of 60-80's on case monitor Bilateral subdural hematomas Spontaneous subacute/acute hematoma unknown etiology. (possible AVM) NIHSS 0, no residual weakness Neurosurgery: neuro checks q1Hr, keep head elevated maintain BP: systolic <140 F/u neuro and neurosurgery recs; possible surgery this week Hypokalemia K+ 3.3 Replete w/ KCl- 40mEq PO once F/U BMP and mag HTN chronic, controlled maintain BP: systolic <140 Continue home meds Hold aspirin CKD stage III chronic Continued home meds Dyslipidemia Continue Atorvastatin BPH chronic status post TURP Continue home meds DVT prophylaxis: hold anticoag 2/2 b/l hematomas SCDs <Ann Marie Burgos - Last Filed: 04/19/18 15:29> Objective - Vital Signs/Intake and Output Vital Signs (last 24 hours): Temp Pulse Resp BP Pulse Ox 98.1 F 56 L 20 133/76 99 04/19/18 12:00 04/19/18 14:00 04/19/18 14:00 04/19/18 14:00 04/19/18 14:00 Intake and Output: 04/19/18 04/19/18 06:59 18:59 Intake Total 270 240 Output Total 1900 600 Balance -1630 -360 - Medications Medications: Current Medications Acetaminophen (Tylenol 325mg Tab) 650 mg PO Q6 PRN PRN Reason: Pain, Mild (1-3) Amlodipine Besylate (Norvasc) 10 mg PO DAILY [facility] Last Admin: 04/19/18 09:36 Dose: 10 mg Atorvastatin Calcium (Lipitor) 10 mg PO HS [facility] Last Admin: 04/18/18 22:21 Dose: 10 mg Bethanechol Chloride (Urecholine) 25 mg PO TID [facility] Last Admin: 04/19/18 13:06 Dose: 25 mg Bethanechol Chloride (Urecholine) 50 mg PO HS [facility] Last Admin: 04/18/18 22:21 Dose: 50 mg Clonazepam (Klonopin) 0.5 mg PO DAILY PRN PRN Reason: Anxiety Last Admin: 04/17/18 18:24 Dose: 0.5 mg Home Med (Febuxostat [Uloric]) 80 mg PO DAILY [facility] Hydrochlorothiazide (Hydrodiuril) 25 mg PO DAILY [facility] Last Admin: 04/19/18 09:23 Dose: 25 mg Sodium Chloride (Sodium Chloride 0.9%) 1,000 mls @ 100 mls/hr IV .Q10H [facility] Last Admin: 04/18/18 18:15 Dose: Not Given Nicardipine HCl (Cardene 40mg/200ml Premixed) 40 mg in 200 mls @ 25 mls/hr IV .Q8H [facility]; Protocol Last Admin: 04/18/18 17:16 Dose: Not Given Labetalol HCl (Trandate) 20 mg IVP Q3 PRN PRN Reason: Systolic Blood Pressure Last Admin: 04/19/18 13:22 Dose: 20 mg Sevelamer Carbonate (Renvela) 800 mg PO TID [facility] Last Admin: 04/19/18 13:05 Dose: 800 mg Sodium Bicarbonate (Sodium Bicarbonate Tab) 650 mg PO Q12 [facility] Last Admin: 04/19/18 09:25 Dose: 650 mg Tamsulosin HCl (Flomax) 0.4 mg PO HS [facility] Last Admin: 04/18/18 22:21 Dose: 0.4 mg Temazepam (Restoril) 15 mg PO HS PRN PRN Reason: Sleep Last Admin: 04/19/18 00:16 Dose: 15 mg Valproate Sodium (Depakene Oral Syrup) 500 mg PO BID [facility] Valsartan (Diovan) 160 mg PO DAILY [facility] Last Admin: 04/17/18 11:56 Dose: Not Given - Labs Labs: 04/19/18 05:30 04/19/18 05:30 PT 12.8 Seconds (9.8-13.1) 04/16/18 16:30 INR 1.1 04/16/18 16:30 APTT 31.9 Seconds (25.6-37.1) 04/16/18 16:30 Attending/Attestation - Attestation I have personally seen and examined this patient.: Yes I have fully participated in the care of the patient.: Yes I have reviewed all pertinent clinical information, including history, physical exam and plan: Yes Notes (Text): 04/19/18 15:28 Seen examined and discussed with resident. Agree with findings and plan as above.
--- NOTE | 2018-04-19 10:50 | CP.PCM.PN ---
Subjective - Subjective Subjective: stable a,a,o x 3 nom drift 5/5 all P B crani/evac SDH on Tues AM Objective - Vital Signs/Intake and Output Vital Signs (last 24 hours): Temp Pulse Resp BP Pulse Ox 97.1 F L 57 L 17 119/77 95 04/19/18 08:00 04/19/18 10:00 04/19/18 10:00 04/19/18 10:00 04/19/18 10:00 Intake and Output: 04/19/18 04/19/18 06:59 18:59 Intake Total 270 240 Output Total 1900 300 Balance -1630 -60 - Medications Medications: Current Medications Acetaminophen (Tylenol 325mg Tab) 650 mg PO Q6 PRN PRN Reason: Pain, Mild (1-3) Amlodipine Besylate (Norvasc) 10 mg PO DAILY [facility] Last Admin: 04/19/18 09:36 Dose: 10 mg Atorvastatin Calcium (Lipitor) 10 mg PO HS [facility] Last Admin: 04/18/18 22:21 Dose: 10 mg Bethanechol Chloride (Urecholine) 25 mg PO TID [facility] Last Admin: 04/19/18 09:25 Dose: 25 mg Bethanechol Chloride (Urecholine) 50 mg PO HS [facility] Last Admin: 04/18/18 22:21 Dose: 50 mg Clonazepam (Klonopin) 0.5 mg PO DAILY PRN PRN Reason: Anxiety Last Admin: 04/17/18 18:24 Dose: 0.5 mg Home Med (Febuxostat [Uloric]) 80 mg PO DAILY [facility] Hydrochlorothiazide (Hydrodiuril) 25 mg PO DAILY [facility] Last Admin: 04/19/18 09:23 Dose: 25 mg Sodium Chloride (Sodium Chloride 0.9%) 1,000 mls @ 100 mls/hr IV .Q10H [facility] Last Admin: 04/18/18 18:15 Dose: Not Given Nicardipine HCl (Cardene 40mg/200ml Premixed) 40 mg in 200 mls @ 25 mls/hr IV .Q8H [facility]; Protocol Last Admin: 04/18/18 17:16 Dose: Not Given Labetalol HCl (Trandate) 20 mg IVP Q3 PRN PRN Reason: Systolic Blood Pressure Sevelamer Carbonate (Renvela) 800 mg PO TID [facility] Last Admin: 04/19/18 09:25 Dose: 800 mg Sodium Bicarbonate (Sodium Bicarbonate Tab) 650 mg PO Q12 [facility] Last Admin: 04/19/18 09:25 Dose: 650 mg Tamsulosin HCl (Flomax) 0.4 mg PO HS [facility] Last Admin: 04/18/18 22:21 Dose: 0.4 mg Temazepam (Restoril) 15 mg PO HS PRN PRN Reason: Sleep Last Admin: 04/19/18 00:16 Dose: 15 mg Valsartan (Diovan) 160 mg PO DAILY [facility] Last Admin: 04/17/18 11:56 Dose: Not Given - Labs Labs: 04/19/18 05:30 04/19/18 05:30 PT 12.8 Seconds (9.8-13.1) 04/16/18 16:30 INR 1.1 04/16/18 16:30 APTT 31.9 Seconds (25.6-37.1) 04/16/18 16:30
[2018-04-19] MEDS: Labetalol 5mg/ml (4ml) IVP PRN ×2 (13:22→20:05)
--- NOTE | 2018-04-19 14:05 | MRI ---
Date of service: 04/18/2018 PROCEDURE: Magnetic Resonance Angiography Brain HISTORY: stroke COMPARISON: 04/17/2018 MRI TECHNIQUE: 3D time of flight MR angiography of the intracranial arteries was performed. Rotating maximum intensity projection images were generated. FINDINGS: INTERNAL CAROTID ARTERIES: Unremarkable. The skull base, petrous, cavernous and supraclinoid segments are bilaterally widely patient. ANTERIOR CEREBRAL ARTERIES: Unremarkable. A1 and A2 segments are widely patent. Smaller distal branches unremarkable, as visualized. MIDDLE CEREBRAL ARTERIES: Unremarkable. M1 and M2 segments are widely patent. Perisylvian branches grossly symmetric. POSTERIOR CIRCULATION: Basilar Artery: Unremarkable. Distal Vertebral Arteries: Unremarkable. Posterior Cerebral Arteries: Unremarkable. Posterior Inferior Cerebellar Arteries: Unremarkable. ANEURYSM/ VASCULAR MALFORMATIONS: None. OTHER FINDINGS: Bilateral subdural hematomas without significant interval change. IMPRESSION: Unremarkable MR angiography of the brain.
--- NOTE | 2018-04-19 14:08 | MRI ---
Date of service: 04/18/2018 PROCEDURE: MR Angiography of the neck without contrast HISTORY: stroke COMPARISON: None available. TECHNIQUE: 3D [id number] angiography of the neck was performed. Rotating maximum intensity projection images of the cervical carotid and vertebral arteries were generated. The origins of the common carotid arteries were not visualized, which is a limitation inherent to the non-contrast time of flight technique. FINDINGS: RIGHT CAROTID ARTERIES: Common Carotid Artery: Normal. Carotid Bifurcation: Normal. Internal Carotid Artery:Normal. External Carotid Artery (proximal branches): Normal. LEFT CAROTID ARTERIES: Common Carotid Artery: Normal. Carotid Bifurcation: Normal. Internal Carotid Artery:Normal. External Carotid Artery (proximal branches): Normal. VERTEBRAL ARTERIES: Right Vertebral Artery: Normal. Left Vertebral Artery: Normal. OTHER FINDINGS: None. IMPRESSION: Normal MR Angiography of the neck.
--- NOTE | 2018-04-19 14:27 | CP.PCM.CON ---
History of Present Illness - History of Present Illness History of Present Illness: 83 yr old male who had a spell of aphasia and dysarthria and came in as code stroke. He was not a TPA candidate because his symptoms resolved, and his CT scan showed bilateral subdural hematomas. The spell lasted 20 minutes without any weakness. Denies focal weakness, numbness, change in vision, facial droop, headache, chest pain, syncope or falls/trauma. Came to ED several hours later. Admits to currently undergoing workup for melanoma due for appt next week at [facility], denies being on chemo currently. Admits to taking ASA daily. When examining the patient today, he expressed that he wasnt sure why he was in the hospital and wanted to go home. ROS; as above. PMD: [facility] PMHx: HTN, Hyperlipidemia, CKD stage III (No Hemodialysis), BPH, Depression, Anxiety, Arthritis PSHx: Left total Hip Replacement, Trans-uretheral resection of prostate SMHx: Denies smoking, and illicit drug use. 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 Amble to ambulate without any issues, normal gait, does not use walker, or cane. FMHx: denies hx of HTN, DM, cancers or any chronic diseases Allergies: NKDA On exam: Normal neurological examination. AAOX3. PERRL. Cn 2-12 normal. Speech fluent. Gait not assessed. Past Patient History - Past Medical History & Family History Past Medical History?: Yes - Past Social History Smoking Status: Never Smoked - CARDIAC Hx Hypercholesterolemia: Yes Hx Hypertension: Yes - PULMONARY Hx Respiratory Disorders: No - NEUROLOGICAL Hx Neurological Disorder: No - HEENT Hx HEENT Problems: Yes Other/Comment: near sighted, use to wear glasses - RENAL Hx Chronic Kidney Disease: Yes (stage 3 ) - ENDOCRINE/METABOLIC Hx Hypothyroidism: Yes - HEMATOLOGICAL/ONCOLOGICAL Hx AIDS: No Hx Hepatitis A: Yes Hx Human Immunodeficiency Virus (HIV): No - INTEGUMENTARY Hx Dermatological Problems: Yes Hx Melanoma: Yes (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 urogenic bladder. turp 5-7 years ago. pt unsure - PSYCHIATRIC Hx Anxiety: Yes Hx Depression: Yes - SURGICAL HISTORY Hx Surgeries: Yes Hx Musculoskeletal Surgery: Yes (left hip surgery 3 years ago) Other/Comment: TURP-5 to 7 yrs ago, pt not sure - ANESTHESIA Hx Anesthesia: Yes Hx Anesthesia Reactions: No Hx Malignant Hyperthermia: No Meds Allergies/Adverse Reactions: Allergies Allergy/AdvReac Type Severity Reaction Status Date / Time No Known Allergies Allergy Verified 04/16/18 20:53 - Medications Medications: Current Medications Acetaminophen (Tylenol 325mg Tab) 650 mg PO Q6 PRN PRN Reason: Pain, Mild (1-3) Amlodipine Besylate (Norvasc) 10 mg PO DAILY [facility] Last Admin: 04/19/18 09:36 Dose: 10 mg Atorvastatin Calcium (Lipitor) 10 mg PO HS [facility] Last Admin: 04/18/18 22:21 Dose: 10 mg Bethanechol Chloride (Urecholine) 25 mg PO TID [facility] Last Admin: 04/19/18 13:06 Dose: 25 mg Bethanechol Chloride (Urecholine) 50 mg PO HS [facility] Last Admin: 04/18/18 22:21 Dose: 50 mg Clonazepam (Klonopin) 0.5 mg PO DAILY PRN PRN Reason: Anxiety Last Admin: 04/17/18 18:24 Dose: 0.5 mg Home Med (Febuxostat [Uloric]) 80 mg PO DAILY [facility] Hydrochlorothiazide (Hydrodiuril) 25 mg PO DAILY [facility] Last Admin: 04/19/18 09:23 Dose: 25 mg Sodium Chloride (Sodium Chloride 0.9%) 1,000 mls @ 100 mls/hr IV .Q10H [facility] Last Admin: 04/18/18 18:15 Dose: Not Given Nicardipine HCl (Cardene 40mg/200ml Premixed) 40 mg in 200 mls @ 25 mls/hr IV .Q8H [facility]; Protocol Last Admin: 04/18/18 17:16 Dose: Not Given Labetalol HCl (Trandate) 20 mg IVP Q3 PRN PRN Reason: Systolic Blood Pressure Last Admin: 04/19/18 13:22 Dose: 20 mg Sevelamer Carbonate (Renvela) 800 mg PO TID [facility] Last Admin: 04/19/18 13:05 Dose: 800 mg Sodium Bicarbonate (Sodium Bicarbonate Tab) 650 mg PO Q12 [facility] Last Admin: 04/19/18 09:25 Dose: 650 mg Tamsulosin HCl (Flomax) 0.4 mg PO HS [facility] Last Admin: 04/18/18 22:21 Dose: 0.4 mg Temazepam (Restoril) 15 mg PO HS PRN PRN Reason: Sleep Last Admin: 04/19/18 00:16 Dose: 15 mg Valsartan (Diovan) 160 mg PO DAILY [facility] Last Admin: 04/17/18 11:56 Dose: Not Given Results - Vital Signs Recent Vital Signs: Last Vital Signs Temp 98.1 F 04/19/18 12:00 Pulse 56 L 04/19/18 14:00 Resp 20 04/19/18 14:00 BP 133/76 04/19/18 14:00 Pulse Ox 99 04/19/18 14:00 - Labs Result Diagrams: 04/19/18 05:30 04/19/18 05:30 Labs: Laboratory Results - last 24 hr 04/19/18 04/19/18 05:30 05:30 WBC 5.6 RBC 4.92 Hgb 14.3 Hct 43.0 MCV 87.5 MCH 29.2 MCHC 33.4 RDW 16.3 H Plt Count 274 Sodium 137 Potassium 3.3 L Chloride 108 H Carbon Dioxide 25 Anion Gap 7 L BUN 28 H Creatinine 1.5 Est GFR ( Amer) 54 Est GFR (Non-Af Amer) 45 Random Glucose 119 H Calcium 9.0 Assessment & Plan - Assessment and Plan (Free Text) Assessment: 83 yr old male with bilateral subdural hematomas and spell of aphasia with dysarthria that may have been seizure. I will recommend starting low dose depakote at 500 mg bid. EEG not needed at this time. MRI Brain with and without contrast. Thank you Dr. Downs [facility]
[2018-04-19] MEDS ORDERED: Valproic Acid 250 mg/5 ml Oral Syrup (60 ml) PO SCH (17:00)
[2018-04-19] MEDS: Valproic Acid 250 mg/5 ml UD Cup PO SCH (17:40)
[2018-04-19] MEDS: Bethanechol 50 MG TAB PO SCH (21:00)
[2018-04-20 05:36] LABS: HEMOGLOBIN 14.5 g/dL (12.0-18.0); MEAN CELL VOLUME 87.7 fl (80.0-94.0); MEAN CORPUSCULAR HEMOGLOBIN 29.4 pg (27.0-31.0); MEAN CORPUSCULAR HGB CONC 33.5 g/dL (33.0-37.0); RBC 4.93 Mil/uL (4.40-5.90); WHITE BLOOD COUNT 6.6 K/uL (4.8-10.8)
[2018-04-20 06:03] LABS: CALCIUM 8.9 mg/dL (8.4-10.2)
--- NOTE | 2018-04-20 08:36 | CON ---
HISTORY OF PRESENT ILLNESS: This is an 83-year-old gentleman who was in his usual state of health. He states he was when he noticed inability to formulate or pronounce words ____ guttural sounds. He was quite disturbed by this, this lasted for a few minute and then passed. He actually made it back to [place] where he presented himself at [facility], at which point he was at his baseline. At the present time, he denies any other symptoms, no headaches, visual changes, motor sensory disturbance, etc. He denies any recent trauma, specifically head trauma. PAST MEDICAL HISTORY: Reviewed. He is being treated for facial melanoma. Most saliently, he had been on 325 mg of aspirin a day up until yesterday. PHYSICAL EXAMINATION: GENERAL: He is quite awake and alert. Speech and mental status are normal. HEENT: Pupils are equal and reactive. EOMS are full. EXTREMITIES: May have some subtle bilateral drift; 5/5 throughout. He is in the ICU so his gait was not tested. IMAGING STUDIES: CT of the brain shows fairly impressive bilateral subacute subdural hematoma with a fair amount of cortical impression. IMPRESSION AND PLAN: Clearly, these subdurals need to be evacuated ____ very impressive site. On the other hand, clinically, the patient is quite stable. The problem is that he has been on 325 mg a day of aspirin up until yesterday. In my opinion, the safest thing to do is to keep him in the hospital, does not need to remain in the ICU and plan on semi-electively evacuating his subdural next week, perhaps giving 5 days for the aspirin effect to dissipate. The other option is to send him home and wait a full 10 days, but I think this is a little bit dangerous. On the other hand, the other option would be to give him platelet transfusion to operate but I think this is crazy and that he is completely stable. Therefore, even though it means keeping the patient in hospital for 5 days, I think this is really the least worst option. I explained this to the patient, who is in agreement, and we will plan to go ahead accordingly. Arsh Taylor MD
[2018-04-20] MEDS: Valproic Acid 250 mg/5 ml UD Cup PO SCH ×2 (09:01→16:11)
--- NOTE | 2018-04-20 10:56 | CP.PCM.PN ---
<Antonio Reid - Last Filed: 04/20/18 14:03> Subjective - Date & Time of Evaluation Date of Evaluation: 04/20/18 Time of Evaluation: 08:45 - Subjective Subjective: Pt seen and examined at bedside, ambulating in his room. Denies acute events including: aphagia, numbness, tingling. Tolerating po diet and experiencing normal bowel/urinary movement. Afebrile Objective - Vital Signs/Intake and Output Vital Signs (last 24 hours): Temp Pulse Resp BP Pulse Ox 97.2 F L 62 24 125/80 100 04/20/18 07:54 04/20/18 09:02 04/20/18 07:54 04/20/18 09:02 04/20/18 07:54 Intake and Output: 04/20/18 04/20/18 06:59 18:59 Intake Total 740 Output Total 1200 Balance -460 - Medications Medications: Current Medications Acetaminophen (Tylenol 325mg Tab) 650 mg PO Q6 PRN PRN Reason: Pain, Mild (1-3) Amlodipine Besylate (Norvasc) 10 mg PO DAILY [facility] Last Admin: 04/20/18 09:02 Dose: 10 mg Atorvastatin Calcium (Lipitor) 10 mg PO HS [facility] Last Admin: 04/19/18 21:01 Dose: 10 mg Bethanechol Chloride (Urecholine) 25 mg PO TID [facility] Last Admin: 04/20/18 09:01 Dose: 25 mg Bethanechol Chloride (Urecholine) 50 mg PO HS [facility] Last Admin: 04/19/18 21:00 Dose: 50 mg Clonazepam (Klonopin) 0.5 mg PO DAILY PRN PRN Reason: Anxiety Last Admin: 04/19/18 16:37 Dose: 0.5 mg Home Med (Febuxostat [Uloric]) 80 mg PO DAILY [facility] Sodium Chloride (Sodium Chloride 0.9%) 1,000 mls @ 100 mls/hr IV .Q10H [facility] Last Admin: 04/18/18 18:15 Dose: Not Given Nicardipine HCl (Cardene 40mg/200ml Premixed) 40 mg in 200 mls @ 25 mls/hr IV .Q8H [facility]; Protocol Last Admin: 04/18/18 17:16 Dose: Not Given Labetalol HCl (Trandate) 20 mg IVP Q3 PRN PRN Reason: Systolic Blood Pressure Last Admin: 04/19/18 20:05 Dose: 20 mg Sevelamer Carbonate (Renvela) 800 mg PO TID [facility] Last Admin: 04/20/18 09:00 Dose: 800 mg Sodium Bicarbonate (Sodium Bicarbonate Tab) 650 mg PO Q12 [facility] Last Admin: 04/20/18 09:01 Dose: 650 mg Tamsulosin HCl (Flomax) 0.4 mg PO HS [facility] Last Admin: 04/19/18 21:01 Dose: 0.4 mg Temazepam (Restoril) 15 mg PO HS PRN PRN Reason: Sleep Last Admin: 04/19/18 23:11 Dose: 15 mg Valproate Sodium (Depakene Oral Soln) 500 mg PO BID [facility] Last Admin: 04/20/18 09:01 Dose: 500 mg - Labs Labs: 04/20/18 04:50 04/20/18 04:50 PT 12.8 Seconds (9.8-13.1) 04/16/18 16:30 INR 1.1 04/16/18 16:30 APTT 31.9 Seconds (25.6-37.1) 04/16/18 16:30 - Constitutional Appears: Well, Non-toxic - Eye Exam Eye Exam: EOMI - ENT Exam ENT Exam: Mucous Membranes Moist - Neck Exam Neck Exam: Full ROM - Respiratory Exam Respiratory Exam: Clear to Ausculation Bilateral, NORMAL BREATHING PATTERN. absent: Wheezes - Cardiovascular Exam Cardiovascular Exam: +S1, +S2 - GI/Abdominal Exam GI & Abdominal Exam: Soft, Normal Bowel Sounds. absent: Tenderness - Extremities Exam Extremities Exam: Full ROM. absent: Calf Tenderness - Neurological Exam Neurological Exam: Alert, Awake, CN II-XII Intact, Oriented x3 - Psychiatric Exam Psychiatric exam: Normal Affect, Normal Mood Assessment and Plan - Assessment and Plan (Free Text) Assessment: 83 y/o male w/ pmhx of HTN, CKD III, DLD, BPH admitted for bilateral subdural hematomas. Plan: -Head and Neck MRAs unremarkable -CT head 04/17: stable bilateral subacute subdural hematomata remaining somewhat larger in volume R>L. No definite aute hemorrhage w/ heterogenous density L>R. No definite significant midline shift appreciable. Basilar cisterns remain prom inent. Likely mass effect effaces cerebral vertex sulci mildly again -CT head 04/16: sig for Bilateral cerebral subacute subdural hematoma slightly larger on the right and slightly higher density on the left. Mild mass effect on the brain slightly more on the right. No evidence of significant midline shift. -EKG: NSR with rate of 60-80's on traffic monitor specialist Bilateral subdural hematomas Spontaneous subacute/acute hematoma unknown etiology. (possible AVM) NIHSS 0, no residual weakness Neurosurgery: neuro checks q1Hr, keep head elevated maintain BP: systolic <140 F/u neuro and neurosurgery: PB crani/evac SDH on Friday AM -NPO at midnight Severely dilated aorta Echo: 04/17/2018 Cardiology consulted: Dr. Arthur for surgery clearance Hypokalemia resolved K+ 3.3 > 3.8 Repleted w/ KCl- 40mEq PO once HTN chronic, controlled maintain BP: systolic <140 Continue home meds Hold aspirin CKD stage III chronic Continued home meds Dyslipidemia Continue Atorvastatin BPH chronic status post TURP Continue home meds DVT prophylaxis: hold anticoag 2/2 b/l hematomas SCDs Case dw Dr. Asael Reid MD PGY2 <Mariam Vyas - Last Filed: 04/20/18 14:42> Objective - Vital Signs/Intake and Output Vital Signs (last 24 hours): Temp Pulse Resp BP Pulse Ox 97.2 F L 63 18 123/72 100 04/20/18 07:54 04/20/18 10:00 04/20/18 10:00 04/20/18 10:00 04/20/18 10:00 Intake and Output: 04/20/18 04/20/18 06:59 18:59 Intake Total 740 Output Total 1200 Balance -460 - Medications Medications: Current Medications Acetaminophen (Tylenol 325mg Tab) 650 mg PO Q6 PRN PRN Reason: Pain, Mild (1-3) Amlodipine Besylate (Norvasc) 10 mg PO DAILY [facility] Last Admin: 04/20/18 09:02 Dose: 10 mg Atorvastatin Calcium (Lipitor) 10 mg PO HS [facility] Last Admin: 04/19/18 21:01 Dose: 10 mg Bethanechol Chloride (Urecholine) 25 mg PO TID [facility] Last Admin: 04/20/18 09:01 Dose: 25 mg Bethanechol Chloride (Urecholine) 50 mg PO HS [facility] Last Admin: 04/19/18 21:00 Dose: 50 mg Clonazepam (Klonopin) 0.5 mg PO DAILY PRN PRN Reason: Anxiety Last Admin: 04/19/18 16:37 Dose: 0.5 mg Home Med (Febuxostat [Uloric]) 80 mg PO DAILY [facility] Sodium Chloride (Sodium Chloride 0.9%) 1,000 mls @ 100 mls/hr IV .Q10H [facility] Last Admin: 04/18/18 18:15 Dose: Not Given Nicardipine HCl (Cardene 40mg/200ml Premixed) 40 mg in 200 mls @ 25 mls/hr IV .Q8H [facility]; Protocol Last Admin: 04/18/18 17:16 Dose: Not Given Labetalol HCl (Trandate) 20 mg IVP Q3 PRN PRN Reason: Systolic Blood Pressure Last Admin: 04/19/18 20:05 Dose: 20 mg Sevelamer Carbonate (Renvela) 800 mg PO TID [facility] Last Admin: 04/20/18 09:00 Dose: 800 mg Sodium Bicarbonate (Sodium Bicarbonate Tab) 650 mg PO Q12 [facility] Last Admin: 04/20/18 09:01 Dose: 650 mg Tamsulosin HCl (Flomax) 0.4 mg PO HS [facility] Last Admin: 04/19/18 21:01 Dose: 0.4 mg Temazepam (Restoril) 15 mg PO HS PRN PRN Reason: Sleep Last Admin: 04/19/18 23:11 Dose: 15 mg Valproate Sodium (Depakene Oral Soln) 500 mg PO BID [facility] Last Admin: 04/20/18 09:01 Dose: 500 mg - Labs Labs: 04/20/18 04:50 04/20/18 04:50 PT 12.8 Seconds (9.8-13.1) 04/16/18 16:30 INR 1.1 04/16/18 16:30 APTT 31.9 Seconds (25.6-37.1) 04/16/18 16:30 Attending/Attestation - Attestation I have personally seen and examined this patient.: Yes I have fully participated in the care of the patient.: Yes I have reviewed all pertinent clinical information, including history, physical exam and plan: Yes
--- NOTE | 2018-04-20 17:20 | CT ---
Date of service: 04/20/2018 PROCEDURE: CT Chest without contrast HISTORY: Ao aneurysm COMPARISON: None TECHNIQUE: Contiguous axial images were obtained through the chest without intravenous contrast enhancement. Sagittal and coronal reconstructions were performed. Radiation dose: Total exam DLP = 464.52 mGy-cm. This CT exam was performed using one or more of the following dose reduction techniques: Automated exposure control, adjustment of the mA and/or kV according to patient size, and/or use of iterative reconstruction technique. FINDINGS: LUNGS: Hyperinflation, manifestations of COPD. No active pulmonary disease. Linear scarring at the lung bases. MEDIASTINUM: Aneurysmal dilatation of the thoracic aorta 5.5 x 5.4 cm. The entire ascending aorta is dilated from the level of the partially calcified aortic valve to the great vessels. Normal diameter of the descending aorta. Normal sized heart. Main pulmonary artery unremarkable. No vascular congestion. No lymphadenopathy. No aortic atherosclerotic calcification. PLEURA: No pleural fluid. No pneumothorax. BONES: No fracture. No destructive lesion. UPPER ABDOMEN: Grossly unremarkable. Incidental renal cysts. Findings were seen on a recent CT of the abdomen and pelvis performed 03/09/2018 OTHER FINDINGS: None. IMPRESSION: Aneurysmal dilatation limited to the ascending aorta. The descending aorta is of normal caliber. Additional benign and/or incidental findings described above.
--- NOTE | 2018-04-20 18:01 | CP.PCM.PCO ---
Physician Communication Note - Physician Communication Note Physician Communication Note: OK with Subdural hematoma evacuation Cardiacwise . postop ICU
[2018-04-20] MEDS: Labetalol 5mg/ml (4ml) IVP PRN (18:11)
[2018-04-20] MEDS: Bethanechol 50 MG TAB PO SCH (21:13)
--- NOTE | 2018-04-20 21:33 | PN ---
DATE: 04/20/2018 CRITICAL CARE PROGRESS NOTE LOCATION: The patient in ICU, bed 426. Time spent 35 minutes. The patient is seen and evaluated at the bedside. Past medical, surgical, family and social history reviewed. Events since admission noted. Case discussed in multidisciplinary ICU rounds this morning. SUBJECTIVE: An 83-year-old male with history significant for hypertension, benign prostatic hypertrophy, chronic kidney disease stage 3, hyperlipidemia. Admitted through emergency room on 04/16/[address] head on admission showed bilateral subdural hematoma, more on the right than the left. Seen by neurosurgery consult. Awaiting for evacuation. Scheduled for next Friday. Overnight, afebrile and normotensive. Telemetry, sinus rhythm. This morning, alert and awake, sitting at the bedside, having breakfast. Denies headache. No shortness of breath, chest pain or palpitation. No abdominal discomfort. No diarrhea. No dysuria. At times, seems to have the difficulty to express. Otherwise stable. PHYSICAL EXAMINATION: VITAL SIGNS: Temperature 97.2, heart rate 62 to 98 and regular, blood pressure 125/80, mean arterial pressure was 95, oxygen saturation 100% on room air. Intake 1482, output 2300, negative balance 818. Weight 188 pounds. HEAD, EYES, EARS, NOSE AND THROAT: Pupils are reactive. Conjunctivae are pink. Sclerae are white. NECK: Supple. Trachea central. CHEST: Bilateral breath sounds. Clear to auscultation. HEART: Rhythm regular. S1 and S2 normal intensity. No S3 or S4 gallop. No audible murmur. ABDOMEN: Bowel sounds present. Soft. Liver and spleen not palpable. Bladder not distended. EXTREMITIES: No clubbing, cyanosis, or edema. NEUROLOGIC EXAMINATION: No cranial nerve deficit. No motor or sensory impairment. Deep tendon reflex 2+ bilaterally. Plantar equivocal. CURRENT MEDICATIONS: Tylenol 650 every 6 hours p.r.n., amlodipine 10 mg p.o. daily, Lipitor 10 mg daily, bethanechol chloride 25 mg p.o. three times daily, bethanechol chloride 50 mg p.o. at bedtime, Klonopin 0.5 mg p.o. daily, labetalol 20 mg IV every 3 hours p.r.n., nicardipine drip 40 mg in 225 mL to maintain systolic pressure below 140, Renvela 800 mg three times daily, sodium bicarbonate 650 mg every 12 hours, sodium chloride 0.9% at 100 mL per hour, Flomax 0.4 mg daily, Restoril 15 mg p.o. at bedtime p.r.n., Depakene oral solution 500 mg p.o. b.i.d. LABORATORY DATA: WBC 6.6, hemoglobin 14.5, hematocrit 43.2, platelet count 271. PT 12.8, INR 1.1, PTT 31.9. SMA-7: Sodium 140, potassium 3.8, chloride 105, CO2 of 25, blood urea nitrogen 34, creatinine 1.9, random glucose 99, A1c of 5.1, calcium 8.9. Cholesterol 108, LDL 63, HDL 37. Microbiology: Nasal smear MRSA negative. Echocardiogram on 04/17/2018 shows no pericardial effusion, no pleural effusion, estimated EF 60% to 65%, left atrium is mildly dilated, mild aortic regurgitation, [id number] tricuspid valve regurgitation, RV systolic pressure of 32, ascending aorta is severely dilated. MRA of neck: Normal MR angiography of the neck. MRA of the head: Unremarkable MR angiography of the brain. IMPRESSION AND PLAN: 1. Neuro: Admitted bilateral subdural hematoma, more on the right than the left. Remains alert, awake, oriented to name, place and time. Blood pressure controlled. 2. Cardiac. Normal ejection fraction. No history of coronary artery disease. No atrial arrhythmias noted. Off aspirin. 3. Pulmonary: No acute issues. 4. Hematology: Normal white count. Normal hemoglobin, hematocrit, platelet count. 5. Renal. History of chronic kidney disease stage 3 with creatinine currently 1.9. On sodium bicarbonate and Renvela intravenous fluid at 100 mL per hour. Flomax 0.4 mg daily for benign prostatic hypertrophy. 6. Infectious Disease: No acute issues noted. Awaiting for subdural hematoma evacuation tomorrow. Off aspirin for about five days. Continue current medications. Nothing by mouth after midnight. Discussed with the patient and the procedure planned for tomorrow. Neeraj Sandoval MD
--- NOTE | 2018-04-20 21:59 | CP.PCM.CON ---
History of Present Illness - History of Present Illness History of Present Illness: Cardiothoracic Surgery Consult Note for Dr. Rowe Consult: Ascending aortic aneurysm HPI: 83 year old male, past medical history of HTN, HLD, CKD stage 3, Depression, Anxiety, and Arthritis, presented to [facility] ED w/ aphasia and found to have bilateral subdural hematomas. Patient scheduled for craniotomy and evacuation 04/21/18 per neurosurgery. During cardiac evaluation for preoperative clearance, patient had ECHO showing dilation of the ascending aorta not previously seen on 01/[address] of the Chest confirmed a 5.5x5.4cm ascending aortic aneurysm. Patient denies chest pain, chest tightness, back pain, voice changes, dysphagia, shortness of breath, or dizziness. PMH: see above PSH: left hip replacement, TURP FH: noncontributory SH: denies tobacco or illicit drug use. Social drinker - wine. ALL: NKDA Meds: See MAR Review of Systems - Constitutional Constitutional: absent: Chills, Fever - EENT Eyes: absent: Blurred Vision, Change in Vision Nose/Mouth/Throat: absent: Nasal Congestion, Nasal Discharge - Cardiovascular Cardiovascular: Slow Heart Rate. absent: Chest Pain, Chest Pain at Rest, Dyspnea, Lightheadedness, Palpitations - Respiratory Respiratory: absent: Cough, Dyspnea - Gastrointestinal Gastrointestinal: absent: Abdominal Pain, Diarrhea, Dysphagia, Nausea, Vomiting - Genitourinary Genitourinary: absent: Difficulty Urinating, Dysuria - Musculoskeletal Musculoskeletal: absent: Back Pain, Neck Pain - Integumentary Integumentary: absent: Bleeding Lesions, Changing Lesions - Neurological Neurological: absent: Confusion, Dizziness - Psychiatric Psychiatric: Anxiety. absent: Depression Past Patient History - Past Medical History & Family History Past Medical History?: Yes - Past Social History Smoking Status: Never Smoked - CARDIAC Hx Hypercholesterolemia: Yes Hx Hypertension: Yes - PULMONARY Hx Respiratory Disorders: No - NEUROLOGICAL Hx Neurological Disorder: No - HEENT Hx HEENT Problems: Yes Other/Comment: near sighted, use to wear glasses - RENAL Hx Chronic Kidney Disease: Yes (stage 3 ) - ENDOCRINE/METABOLIC Hx Hypothyroidism: Yes - HEMATOLOGICAL/ONCOLOGICAL Hx AIDS: No Hx Hepatitis A: Yes Hx Human Immunodeficiency Virus (HIV): No - INTEGUMENTARY Hx Dermatological Problems: Yes Hx Melanoma: Yes (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 urogenic bladder. turp 5-7 years ago. pt unsure - PSYCHIATRIC Hx Anxiety: Yes Hx Depression: Yes - SURGICAL HISTORY Hx Surgeries: Yes Hx Musculoskeletal Surgery: Yes (left hip surgery 3 years ago) Other/Comment: TURP-5 to 7 yrs ago, pt not sure - ANESTHESIA Hx Anesthesia: Yes Hx Anesthesia Reactions: No Hx Malignant Hyperthermia: No Meds Allergies/Adverse Reactions: Allergies Allergy/AdvReac Type Severity Reaction Status Date / Time No Known Allergies Allergy Verified 04/16/18 20:53 - Medications Medications: Current Medications Acetaminophen (Tylenol 325mg Tab) 650 mg PO Q6 PRN PRN Reason: Pain, Mild (1-3) Atorvastatin Calcium (Lipitor) 10 mg PO HS [facility] Last Admin: 04/20/18 21:13 Dose: 10 mg Bethanechol Chloride (Urecholine) 25 mg PO TID [facility] Last Admin: 04/20/18 16:13 Dose: 25 mg Bethanechol Chloride (Urecholine) 50 mg PO HS [facility] Last Admin: 04/20/18 21:13 Dose: 50 mg Clonazepam (Klonopin) 0.5 mg PO DAILY PRN PRN Reason: Anxiety Last Admin: 04/20/18 16:16 Dose: 0.5 mg Home Med (Febuxostat [Uloric]) 80 mg PO DAILY [facility] Labetalol HCl (Trandate) 20 mg IVP Q3 PRN PRN Reason: Systolic Blood Pressure Last Admin: 04/20/18 18:11 Dose: 20 mg Metoprolol Tartrate (Lopressor) 25 mg PO Q12 [facility] Last Admin: 04/20/18 21:15 Dose: 25 mg Sevelamer Carbonate (Renvela) 800 mg PO TID [facility] Last Admin: 04/20/18 16:11 Dose: 800 mg Sodium Bicarbonate (Sodium Bicarbonate Tab) 650 mg PO Q12 [facility] Last Admin: 04/20/18 21:13 Dose: 650 mg Tamsulosin HCl (Flomax) 0.4 mg PO HS [facility] Last Admin: 04/20/18 21:14 Dose: 0.4 mg Temazepam (Restoril) 15 mg PO HS PRN PRN Reason: Sleep Last Admin: 04/19/18 23:11 Dose: 15 mg Valproate Sodium (Depakene Oral Soln) 500 mg PO BID [facility] Last Admin: 04/20/18 16:11 Dose: 500 mg Physical Exam - Constitutional Appears: Well, Non-toxic, No Acute Distress - Head Exam Head Exam: ATRAUMATIC, NORMAL INSPECTION, NORMOCEPHALIC - Eye Exam Eye Exam: EOMI - ENT Exam ENT Exam: Mucous Membranes Dry - Respiratory Exam Respiratory Exam: NORMAL BREATHING PATTERN. absent: Respiratory Distress - Cardiovascular Exam Cardiovascular Exam: Bradycardia, REGULAR RHYTHM, +S1, +S2 - GI/Abdominal Exam GI & Abdominal Exam: Normal Bowel Sounds, Soft. absent: Tenderness - Neurological Exam Neurological exam: Alert, Oriented x3 - Psychiatric Exam Psychiatric exam: Anxious - Skin Skin Exam: Dry, Intact, Normal Color, Warm Results - Vital Signs Recent Vital Signs: Last Vital Signs Temp 97.3 F L 04/20/18 12:00 Pulse 60 04/20/18 21:15 Resp 18 04/20/18 18:00 BP 142/96 H 04/20/18 21:15 Pulse Ox 95 04/20/18 18:00 - Labs Result Diagrams: 04/21/18 04:50 04/21/18 04:50 Labs: Laboratory Results - last 24 hr 04/20/18 04/20/18 04:50 04:50 WBC 6.6 RBC 4.93 Hgb 14.5 Hct 43.2 MCV 87.7 MCH 29.4 MCHC 33.5 RDW 16.0 H Plt Count 271 Sodium 140 Potassium 3.8 Chloride 105 Carbon Dioxide 25 Anion Gap 14 BUN 34 H Creatinine 1.9 H Est GFR ( Amer) 41 Est GFR (Non-Af Amer) 34 Random Glucose 99 Calcium 8.9 Magnesium 2.0 Assessment & Plan - Assessment and Plan (Free Text) Assessment: 83M w/ 5.5x5.4cm ascending aortic aneurysm Plan: Patient scheduled for craniotomy and evacuation of hematoma 04/21/18 per neurosurgery Following procedure, and when optimized, recommend CT angio of the chest CKD stage 3 - patient wound need initiation of [place] protocol prior to IV contrast administration Will discuss with primary team regarding management Patient adamantly refusing any additional testing that would prolong his hospital stay at this time D/w Dr. Sharon Mora PGY1
--- NOTE | 2018-04-20 22:37 | CON ---
DATE: 04/20/2018 HISTORY OF PRESENT ILLNESS: The patient is an 83 years old male who has no significant past medical history, except for hypertension and the patient was told 2 years ago that he may have had silent heart attack but no cardiac workup was done. Apparently, this conclusion was based on an echocardiogram. The patient presented because of inability to articulate his speech for some 20 to 25 minutes according to him. He denies any recent fall, loss of consciousness or any physical trauma. The patient was found to have bilateral subacute subdural hematoma, larger on the right compared to the left. Again, the patient is being considered for evacuation of the subdural hematoma tomorrow. The patient denied any chest pain, back pain or shortness of breath. The patient was also diagnosed recently with a melanoma. First lesion was noted on the face below the medial angle of the right eye and the second one was in the posterior aspect of the left thigh. The patient was supposed to see oncology team at [facility]. The patient denied receiving any chemotherapy yet. SOCIAL HISTORY: Non smoker, non drinker. He lives by himself. MEDICATIONS: Depakene 500 mg twice a day, Lipitor 10 mg once a day, Norvasc 10 mg once a day. Trandate 20 mg intravenously every 3 hours p.r.n. Urecholine 50 mg p.o every night. REVIEW OF SYSTEMS: No blurry vision, no dizziness, no recent loss of consciousness. PHYSICAL EXAMINATION: GENERAL: The patient is an elderly male who does not appear to be in acute distress. VITAL SIGNS: Blood pressure 123/72, heart rate 63, temperature 97.2, respirations 20. HEENT: Normocephalic except for right paranasal melanoma lesion. CHEST: Clear. HEART: S1 and S2 regular. ABDOMEN: Soft. EXTREMITIES: No edema. Melanoma lesion was noted on the posterior aspect of the left lower thigh. LABORATORY DATA: Hemoglobin and hematocrit 14.5 and 43.2, white count and platelet count are within normal limits. PT, PTT, and INR are within normal limits. SMA-7 sodium 140, potassium 3.8, chloride 105, CO2 of 25, glucose 99, BUN 34, and creatinine 1.9. Echocardiographic study revealed normal ejection fraction, grade 1 abnormal relaxation pattern, mild dilated left atrium, mild aortic insufficiency. The ascending aorta severely dilated. Consider further evaluation over CT scan. Chest CT scan was performed, the reports were pending. Head MRA without contrast unremarkable, MR angiography of the brain. Neck MRA without contrast. Normal MR angiography of the neck. EKG revealed normal sinus rhythm at 77, consider old inferior infarct, left axis deviation. ASSESSMENT: 1. Bilateral subdural hematoma. 2. Hypertension. 3. Mild aortic insufficiency with moderately dilated aortic root. 4. Facial and left thigh melanoma. RECOMMENDATIONS: Continue current Lipitor 10 mg once a day, Norvasc 10 mg once a day, and Trandate 20 mg intravenously every 3 hours p.r.n. I will review the chest CT scan that was performed without contrast and following that I will make my recommendations regarding the cardiac reasons. Case was discussed with Dr. Vyas, the hospitalist. Yobani Arthur MD
--- NOTE | 2018-04-20 22:52 | CP.PCM.PN ---
Subjective - Date & Time of Evaluation Date of Evaluation: 04/20/18 Time of Evaluation: 14:05 - Subjective Subjective: Neurology Consultation Follow-Up Note: Attempted to evaluate Mr. Chun in the ICU, however, he was making an important phone call and requested to have evaluation done at a later time. Mr. Chun was admitted for aphasia and dysarthria. He originally came to [facility] as a code stroke. No acute overnight events; chart reviewed. Objective - Vital Signs/Intake and Output Vital Signs (last 24 hours): Temp Pulse Resp BP Pulse Ox 97.3 F L 60 18 142/96 H 95 04/20/18 12:00 04/20/18 21:15 04/20/18 18:00 04/20/18 21:15 04/20/18 18:00 Intake and Output: 04/20/18 04/21/18 18:59 06:59 Output Total 600 Balance -600 - Medications Medications: Current Medications Acetaminophen (Tylenol 325mg Tab) 650 mg PO Q6 PRN PRN Reason: Pain, Mild (1-3) Atorvastatin Calcium (Lipitor) 10 mg PO HS [facility] Last Admin: 04/20/18 21:13 Dose: 10 mg Bethanechol Chloride (Urecholine) 25 mg PO TID [facility] Last Admin: 04/20/18 16:13 Dose: 25 mg Bethanechol Chloride (Urecholine) 50 mg PO HS [facility] Last Admin: 04/20/18 21:13 Dose: 50 mg Clonazepam (Klonopin) 0.5 mg PO DAILY PRN PRN Reason: Anxiety Last Admin: 04/20/18 16:16 Dose: 0.5 mg Home Med (Febuxostat [Uloric]) 80 mg PO DAILY [facility] Labetalol HCl (Trandate) 20 mg IVP Q3 PRN PRN Reason: Systolic Blood Pressure Last Admin: 04/20/18 18:11 Dose: 20 mg Metoprolol Tartrate (Lopressor) 25 mg PO Q12 [facility] Last Admin: 04/20/18 21:15 Dose: 25 mg Sevelamer Carbonate (Renvela) 800 mg PO TID [facility] Last Admin: 04/20/18 16:11 Dose: 800 mg Sodium Bicarbonate (Sodium Bicarbonate Tab) 650 mg PO Q12 [facility] Last Admin: 04/20/18 21:13 Dose: 650 mg Tamsulosin HCl (Flomax) 0.4 mg PO HS [facility] Last Admin: 04/20/18 21:14 Dose: 0.4 mg Temazepam (Restoril) 15 mg PO HS PRN PRN Reason: Sleep Last Admin: 04/19/18 23:11 Dose: 15 mg Valproate Sodium (Depakene Oral Soln) 500 mg PO BID [facility] Last Admin: 04/20/18 16:11 Dose: 500 mg - Labs Labs: 04/20/18 04:50 04/20/18 04:50 PT 12.8 Seconds (9.8-13.1) 04/16/18 16:30 INR 1.1 04/16/18 16:30 APTT 31.9 Seconds (25.6-37.1) 04/16/18 16:30 - Constitutional Appears: Well, Non-toxic, No Acute Distress - Neurological Exam Neurological Exam: Alert, Awake Additional comments: pt refused exam at this time - Additional Findings Additional findings: pt refused exam during time of rounds. will follow up tomorrow Assessment and Plan (1) Subdural hematoma Assessment & Plan: Imaging: -CT Head (04/16/18): Bilateral cerebral convexity acute or subacute subdural hematoma slightly larger on the right and slightly higher density on the left. The possibility of acute on subacute or chronic hemorrhage cannot be excluded. Mild mass effect on the brain slightly more on the right. No evidence of significant midline shift. -CT Head (04/17/18): Stable bilateral subacute subdural hematomata remaining somewhat larger in volume at the right when compared to the left. No definite acute hemorrhage with left subdural hematoma somewhat more heterogeneous in density than the right once again. No definite significant midline shift appreciable. Basilar cisterns remain prominent. Likely mass effect effaces cerebral vertex sulci mildly once again. Diffuse cerebral atrophy reiterated as well as limited chronic microangiopathy. No acute parenchymal findings intrinsically. -Head and Neck MRA (04/17/18): unremarkable -ECHO w/Bubble done: see official report. -Mr. Chun refused neuro exam this afternoon. -He was noted to be AAO and speaking without difficulty on his cell phone. -NPO for OR tomorrow with neurosurgery for craniotomy and evacuation of bilateral subdural hematomas. Further post-op management per neurosurgery. -Neuro will continue to follow up with the pt post-op. -Maintain BP control. -Cardio and thoracic surgery on board. -Please notify neuro team of any acute changes in patient's condition. Case discussed with Dr. Weaver Thank you for allowing us to participate in this patient's care. Status: Acute
[2018-04-21 05:46] LABS: HEMOGLOBIN 14.8 g/dL (12.0-18.0); MEAN CELL VOLUME 87.7 fl (80.0-94.0); MEAN CORPUSCULAR HEMOGLOBIN 29.9 pg (27.0-31.0); MEAN CORPUSCULAR HGB CONC 34.1 g/dL (33.0-37.0); RBC 4.93 Mil/uL (4.40-5.90); RED CELL DISTRIBUTION WIDTH 15.6 % (11.5-14.5); WHITE BLOOD COUNT 6.2 K/uL (4.8-10.8)
[2018-04-21 06:00] LABS: INR 1.1
[2018-04-21 06:02] LABS: PARTIAL THROMBOPLASTIN TIME 34.3 Seconds (25.6-37.1)
[2018-04-21 06:23] LABS: ALB/GLOB RATIO 0.9 (1.0-2.1); ALBUMIN 3.3 g/dL (3.5-5.0); CALCIUM 9.1 mg/dL (8.4-10.2)
--- NOTE | 2018-04-21 06:57 | CP.PCM.PN ---
<Antonio Reid - Last Filed: 04/21/18 13:12> Subjective - Date & Time of Evaluation Date of Evaluation: 04/21/18 Time of Evaluation: 06:57 - Subjective Subjective: Pt seen and examined in his room. Pt was upright, standing an shaving his face. Denies acute overnight events. Denies CP/SOB/N/V. NPO at midnight. Scheduled surgery at 11:00 Objective - Vital Signs/Intake and Output Vital Signs (last 24 hours): Temp Pulse Resp BP Pulse Ox 97.8 F 56 L 11 L 137/89 94 L 04/21/18 04:00 04/21/18 06:00 04/21/18 06:00 04/21/18 06:00 04/21/18 06:00 Intake and Output: 04/20/18 04/21/18 18:59 06:59 Intake Total 151 Output Total 600 Balance -600 151 - Medications Medications: Current Medications Acetaminophen (Tylenol 325mg Tab) 650 mg PO Q6 PRN PRN Reason: Pain, Mild (1-3) Atorvastatin Calcium (Lipitor) 10 mg PO HS [facility] Last Admin: 04/20/18 21:13 Dose: 10 mg Bethanechol Chloride (Urecholine) 25 mg PO TID [facility] Last Admin: 04/20/18 16:13 Dose: 25 mg Bethanechol Chloride (Urecholine) 50 mg PO HS [facility] Last Admin: 04/20/18 21:13 Dose: 50 mg Clonazepam (Klonopin) 0.5 mg PO DAILY PRN PRN Reason: Anxiety Last Admin: 04/20/18 16:16 Dose: 0.5 mg Home Med (Febuxostat [Uloric]) 80 mg PO DAILY [facility] Labetalol HCl (Trandate) 20 mg IVP Q3 PRN PRN Reason: Systolic Blood Pressure Last Admin: 04/20/18 18:11 Dose: 20 mg Metoprolol Tartrate (Lopressor) 25 mg PO Q12 [facility] Last Admin: 04/20/18 21:15 Dose: 25 mg Sevelamer Carbonate (Renvela) 800 mg PO TID [facility] Last Admin: 04/20/18 16:11 Dose: 800 mg Sodium Bicarbonate (Sodium Bicarbonate Tab) 650 mg PO Q12 [facility] Last Admin: 04/20/18 21:13 Dose: 650 mg Tamsulosin HCl (Flomax) 0.4 mg PO HS [facility] Last Admin: 04/20/18 21:14 Dose: 0.4 mg Temazepam (Restoril) 15 mg PO HS PRN PRN Reason: Sleep Last Admin: 04/19/18 23:11 Dose: 15 mg Valproate Sodium (Depakene Oral Soln) 500 mg PO BID [facility] Last Admin: 04/20/18 16:11 Dose: 500 mg - Labs Labs: 04/21/18 04:50 04/21/18 04:50 PT 13.0 Seconds (9.8-13.1) 04/21/18 04:50 INR 1.1 04/21/18 04:50 APTT 34.3 Seconds (25.6-37.1) 04/21/18 04:50 - Constitutional Appears: Well, Non-toxic - Eye Exam Eye Exam: EOMI - Respiratory Exam Respiratory Exam: Clear to Ausculation Bilateral, NORMAL BREATHING PATTERN. absent: Wheezes - Cardiovascular Exam Cardiovascular Exam: REGULAR RHYTHM, +S1, +S2 - GI/Abdominal Exam GI & Abdominal Exam: Soft, Normal Bowel Sounds. absent: Tenderness - Neurological Exam Neurological Exam: Alert, Awake, CN II-XII Intact, Normal Gait, Oriented x3 - Psychiatric Exam Psychiatric exam: Normal Affect, Normal Mood Assessment and Plan - Assessment and Plan (Free Text) Assessment: 83 y/o male w/ pmhx of HTN, CKD III, DLD, BPH admitted for bilateral subdural hematomas. Plan: -Head and Neck MRAs unremarkable -CT head 04/17: stable bilateral subacute subdural hematomata remaining somewhat larger in volume R>L. No definite aute hemorrhage w/ heterogenous density L>R. No definite significant midline shift appreciable. Basilar cisterns remain prominent. Likely mass effect effaces cerebral vertex sulci mildly again -CT head 04/16: sig for Bilateral cerebral subacute subdural hematoma slightly larger on the right and slightly higher density on the left. Mild mass effect on the brain slightly more on the right. No evidence of significant midline shift. -EKG: NSR with rate of 60-80's on manager cardiac Bilateral subdural hematomas Spontaneous subacute/acute hematoma NIHSS 0, no residual weakness Neurosurgery: neuro checks q1Hr, keep head elevated maintain BP: systolic <140 neuro and neurosurgery: PB crani/evac SDH today at 11:00 Severely dilated aorta Echo: 04/17/2018 CT chest 5.5 x 5.4 cm ascending aortic aneurysm. Cardiology: Dr. Arthur: Lipitor 10 mg qd, Norvasc 10 mg qd, Trandate 20 mg IV q 3hr PRN. Cardiothoracic Surgery: Dr. Rowe: recommend CT angio of chest with [place] protocol prior to IV contrast. Hypokalemia resolved Repleted w/ KCl- 40mEq PO once HTN chronic, controlled maintain BP: systolic <140 Continue home meds Held aspirin CKD stage III chronic Continued home meds Dyslipidemia Continue Atorvastatin BPH chronic status post TURP Continue home meds DVT prophylaxis: hold anticoag 2/2 b/l hematomas SCDs Case dw Dr. Asael Reid MD PGY2 <Mariam Vyas - Last Filed: 04/21/18 17:40> Objective - Vital Signs/Intake and Output Vital Signs (last 24 hours): Temp Pulse Resp BP Pulse Ox 97.8 F 61 20 175/87 H 100 04/21/18 16:00 04/21/18 16:53 04/21/18 13:33 04/21/18 16:53 04/21/18 16:00 Intake and Output: 04/21/18 04/21/18 06:59 18:59 Intake Total 151 750 Balance 151 750 - Medications Medications: Current Medications Acetaminophen (Tylenol 325mg Tab) 650 mg PO Q6 PRN PRN Reason: Pain, Mild (1-3) Atorvastatin Calcium (Lipitor) 10 mg PO HS [facility] Last Admin: 04/20/18 21:13 Dose: 10 mg Bethanechol Chloride (Urecholine) 25 mg PO TID [facility] Last Admin: 04/21/18 17:01 Dose: Not Given Bethanechol Chloride (Urecholine) 50 mg PO HS [facility] Last Admin: 04/20/18 21:13 Dose: 50 mg Clonazepam (Klonopin) 0.5 mg PO DAILY PRN PRN Reason: Anxiety Last Admin: 04/20/18 16:16 Dose: 0.5 mg Labetalol HCl (Trandate) 20 mg IVP Q3 PRN PRN Reason: Systolic Blood Pressure Last Admin: 04/21/18 17:21 Dose: 20 mg Metoprolol Tartrate (Lopressor) 25 mg PO Q12 [facility] Last Admin: 04/21/18 16:53 Dose: 25 mg Morphine Sulfate (Morphine) 2 mg IVP Q4 PRN PRN Reason: Pain, moderate (4-7) Last Admin: 04/21/18 13:52 Dose: 2 mg Oxycodone/Acetaminophen (Percocet 5/325 Mg Tab) 1 tab PO Q4 PRN PRN Reason: Pain, severe (8-10) Stop: 04/24/18 16:17 Last Admin: 04/21/18 16:37 Dose: 1 tab Sevelamer Carbonate (Renvela) 800 mg PO TID [facility] Last Admin: 04/21/18 16:54 Dose: Not Given Sodium Bicarbonate (Sodium Bicarbonate Tab) 650 mg PO Q12 [facility] Last Admin: 04/21/18 09:32 Dose: Not Given Tamsulosin HCl (Flomax) 0.4 mg PO HS [facility] Last Admin: 04/20/18 21:14 Dose: 0.4 mg Temazepam (Restoril) 15 mg PO HS PRN PRN Reason: Sleep Last Admin: 04/19/18 23:11 Dose: 15 mg Valproate Sodium (Depakene Oral Soln) 500 mg PO BID [facility] Last Admin: 04/21/18 16:52 Dose: 500 mg - Labs Labs: 04/21/18 04:50 04/21/18 04:50 PT 13.0 Seconds (9.8-13.1) 04/21/18 04:50 INR 1.1 04/21/18 04:50 APTT 34.3 Seconds (25.6-37.1) 04/21/18 04:50 Attending/Attestation - Attestation I have personally seen and examined this patient.: Yes I have fully participated in the care of the patient.: Yes I have reviewed all pertinent clinical information, including history, physical exam and plan: Yes Notes (Text): Bilateral Subdural Hematoma s/p Craniotomy with Evacuation of the Hematoma Ascending Aortic Aneurysm HTN CKD stage III -monitor in ICU -NO ASA, anticoag -BP and HR control - pt to ff up with Dr Rowe( CT Surgery) as outpt for further mgt of Aortic aneurysm ( pt refused any work up for now ) - Pt on Depakote for seizure proph - cont Renagel and Sodium Bicarb
--- NOTE | 2018-04-21 07:54 | CP.PCM.PN ---
Subjective - Date & Time of Evaluation Date of Evaluation: 04/21/18 Time of Evaluation: 07:52 - Subjective Subjective: Surgery: Dr. Rowe Patient reports feeling fine this am. He denies CP or SOB. Started discussion reguarding further work up for AA however patient states he is not interested in undergoing further work up at this time with CT w/ contrast. Objective - Vital Signs/Intake and Output Vital Signs (last 24 hours): Temp Pulse Resp BP Pulse Ox 97.9 F 54 L 14 137/89 95 04/21/18 07:24 04/21/18 07:24 04/21/18 07:24 04/21/18 07:24 04/21/18 07:24 Intake and Output: 04/21/18 04/21/18 06:59 18:59 Intake Total 151 Balance 151 - Medications Medications: Current Medications Acetaminophen (Tylenol 325mg Tab) 650 mg PO Q6 PRN PRN Reason: Pain, Mild (1-3) Atorvastatin Calcium (Lipitor) 10 mg PO [facility] Last Admin: 04/20/18 21:13 Dose: 10 mg Bethanechol Chloride (Urecholine) 25 mg PO TID [facility] Last Admin: 04/20/18 16:13 Dose: 25 mg Bethanechol Chloride (Urecholine) 50 mg PO [facility] Last Admin: 04/20/18 21:13 Dose: 50 mg Clonazepam (Klonopin) 0.5 mg PO DAILY PRN PRN Reason: Anxiety Last Admin: 04/20/18 16:16 Dose: 0.5 mg Home Med (Febuxostat [Uloric]) 80 mg PO DAILY [facility] Labetalol HCl (Trandate) 20 mg IVP Q3 PRN PRN Reason: Systolic Blood Pressure Last Admin: 04/20/18 18:11 Dose: 20 mg Metoprolol Tartrate (Lopressor) 25 mg PO Q12 [facility] Last Admin: 04/20/18 21:15 Dose: 25 mg Sevelamer Carbonate (Renvela) 800 mg PO TID [facility] Last Admin: 04/20/18 16:11 Dose: 800 mg Sodium Bicarbonate (Sodium Bicarbonate Tab) 650 mg PO Q12 [facility] Last Admin: 04/20/18 21:13 Dose: 650 mg Tamsulosin HCl (Flomax) 0.4 mg PO [facility] Last Admin: 04/20/18 21:14 Dose: 0.4 mg Temazepam (Restoril) 15 mg PO HS PRN PRN Reason: Sleep Last Admin: 04/19/18 23:11 Dose: 15 mg Valproate Sodium (Depakene Oral Soln) 500 mg PO BID [facility] Last Admin: 04/20/18 16:11 Dose: 500 mg - Labs Labs: 04/21/18 04:50 04/21/18 04:50 PT 13.0 Seconds (9.8-13.1) 04/21/18 04:50 INR 1.1 04/21/18 04:50 APTT 34.3 Seconds (25.6-37.1) 04/21/18 04:50 - Constitutional Appears: No Acute Distress - Head Exam Head Exam: ATRAUMATIC, NORMOCEPHALIC - Eye Exam Eye Exam: EOMI, Normal appearance - ENT Exam ENT Exam: Mucous Membranes Moist - Respiratory Exam Respiratory Exam: NORMAL BREATHING PATTERN. absent: Respiratory Distress - Cardiovascular Exam Cardiovascular Exam: REGULAR RHYTHM. absent: Tachycardia Assessment and Plan - Assessment and Plan (Free Text) Assessment: 83 y/o male w/ ascending aortic aneurysm Plan: -recommend CT w/ contrast of the chest for better evaluation, would need [place] protocol for CKD3 however patient states he is not interested in undergoing further evaluation at this time -will need f/u monitoring for aneurysm -further recs per Dr. Jae Ruiz PGY4
[2018-04-21] MEDS: Valproic Acid 250 mg/5 ml UD Cup PO SCH ×2 (09:31→16:52)
--- NOTE | 2018-04-21 10:30 | CP.CCUPN ---
<Rancho Hatch - Last Filed: 04/21/18 13:40> CCU Subjective - Physician Review Events Since Last Encounter (Free Text): 04/21/18 10:53 83 y/o male who is admitted for evaluation and treatment of b/l subdural hematoma and 5.5x5.4cm ascending aortic aneurysm. -Patient seen and examined this morning at bedside, NAD, AAOx3. Patient reports no pain, NPO for possible neurointervention for subdural hematoma. VS: HR in 50s, BP stable 137/89, Spo2 >95% on RA, RR 18 ROS: No other pertinent negs or positives on 10+ system review. EXAM: HEENT: no icterus, no gaze preference, Pupils equal and reactive b/l NECK: No JVD visible, supple, carotids equal upstroke bilat/no bruit CHEST: CTBL HEART:S1 and S2, RRR, No JVD ABD: soft/NT/ND, normal BS, no guarding, no organomegaly EXT: no LE edema, no calf tenderness or palpable cords, distal pulses intact and symmetrical. 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 The possibility of acute on subacute or chronic hemorrhage cannot be excluded. Mild mass effect on the brain slightly more on the right. No evidence of significant midline shift. -CT Head (04/17/18): Stable bilateral subacute subdural hematomata remaining somewhat larger in volume at the right when compared to the left. No definite acute hemorrhage with left subdural hematoma somewhat more heterogeneous in density than the right once again. No definite significant midline shift apprec iable. Basilar cisterns remain prominent. Likely mass effect effaces cerebral vertex sulci mildly once again. Diffuse cerebral atrophy reiterated as well as limited chronic microangiopathy. No acute parenchymal findings intrinsically. -Head and Neck MRA (04/17/18): unremarkable -ECHO w/Bubble done: EF 60-65%, mild AR, Dilated Aorta -Chest CT: 5.5x5.4cm ascending aortic aneurysm IMPRESSION/PROBLEMS: - B/L Subdural Hematoma, Non-traumatic - Ascending Aortic Aneurysm, 5.5x5.4 cm - Hypertension - CKD stage III - BPH PLAN: - Continue Neuro management: Possible surgical evacuation for SDH today, NPO - Patient is cleared by Cardio/Dr. dowling for Neuro-intervention for SDH - As per Cardio-thoracic surgery: CT angio of the chest for further evaluation of AAA, patient has CKD, pt refuses any further work ups for AAA at this time - C/w Metoprolol Tartrate 24mg PO BID, Labetalol PRN, C/w Lipitor and Flomax, C/w Valproic acid 500mg PO BID, HOLD Aspirin Case discussed with ICU attending 04/21/18 11:30 13:41 Patient seen and examined, s/p gali hole surgical intervention - Patient is hemodynamic stable - Well tolerated surgery CCU Objective - Vital Signs / Intake & Output Vital Signs (Last 4 hours): Vital Signs Temp Pulse Resp BP Pulse Ox 04/21/18 09:37 52 L 141/48 L 04/21/18 07:24 97.9 F 54 L 14 137/89 95 Intake and Output (Last 8hrs): Intake & Output 04/20/18 04/21/18 04/21/18 22:59 06:59 14:59 Intake Total 111 40 Output Total 600 Balance -489 40 Intake: IV 111 40 Output: Urine 600 Urine, Voided 600 Other: # Voids Urine, Voided 1 - Medications Active Medications: Active Medications Generic Name Dose Route Start Last Admin Trade Name Freq PRN Reason Stop Dose Admin Acetaminophen 650 mg 04/16/18 19:16 Tylenol 325mg Tab PO Q6 PRN Pain, Mild (1-3) Atorvastatin Calcium 10 mg 04/16/18 22:00 04/20/18 21:13 Lipitor PO 10 mg HS JAMES Administration Bethanechol Chloride 25 mg 04/17/18 17:00 04/21/18 09:32 Urecholine PO Not Given TID JAMES Bethanechol Chloride 50 mg 04/17/18 22:00 04/20/18 21:13 Urecholine PO 50 mg HS JAMES Administration Clonazepam 0.5 mg 04/16/18 17:20 04/20/18 16:16 Klonopin PO 0.5 mg DAILY PRN Administration Anxiety Home Med 80 mg 04/18/18 09:00 Febuxostat [Uloric] PO DAILY [facility] Labetalol HCl 20 mg 04/16/18 18:31 04/20/18 18:11 Trandate IVP 20 mg Q3 PRN Administration Systolic Blood Pressure Metoprolol Tartrate 25 mg 04/20/18 21:00 04/21/18 09:37 Lopressor PO Not Given Q12 JAMES Sevelamer Carbonate 800 mg 04/17/18 09:00 04/21/18 09:32 Renvela PO Not Given TID JAMES Sodium Bicarbonate 650 mg 04/17/18 21:00 04/21/18 09:32 Sodium Bicarbonate Tab PO Not Given Q12 JAMES Tamsulosin HCl 0.4 mg 04/16/18 22:00 04/20/18 21:14 Flomax PO 0.4 mg HS JAMES Administration Temazepam 15 mg 04/18/18 00:16 04/19/18 23:11 Restoril PO 15 mg HS PRN Administration Sleep Valproate Sodium 500 mg 04/19/18 17:00 04/21/18 09:31 Depakene Oral Soln PO Not Given BID JAMES - Patient Studies Lab Studies: Lab Studies 04/21/18 04/21/18 04/21/18 Range/Units 04:50 04:50 04:50 WBC 6.2 (4.8-10.8) K/uL RBC 4.93 (4.40-5.90) Mil/uL Hgb 14.8 (12.0-18.0) g/dL Hct 43.3 (35.0-51.0) % MCV 87.7 (80.0-94.0) fl MCH 29.9 (27.0-31.0) pg MCHC 34.1 (33.0-37.0) g/dL RDW 15.6 H (11.5-14.5) % Plt Count 276 (130-400) K/uL PT 13.0 (9.8-13.1) Seconds INR 1.1 APTT 34.3 (25.6-37.1) Seconds Sodium 140 (132-148) mmol/l Potassium 3.6 (3.6-5.0) MMOL/L Chloride 106 (98-107) mmol/L Carbon Dioxide 26 (22-30) mmol/L Anion Gap 12 (10-20) BUN 35 H (9-20) mg/dl Creatinine 1.7 H (0.8-1.5) mg/dl Est GFR ( Amer) 47 Est GFR (Non-Af Amer) 39 Random Glucose 83 (75-110) mg/dL Calcium 9.1 (8.4-10.2) mg/dL Total Bilirubin 0.4 (0.2-1.3) mg/dl AST 20 (17-59) U/L ALT 35 (21-72) U/L Alkaline Phosphatase 73 (38-126) U/L Total Protein 6.7 (6.3-8.2) G/DL Albumin 3.3 L (3.5-5.0) g/dL Globulin 3.5 (2.2-3.9) gm/dL Albumin/Globulin Ratio 0.9 L (1.0-2.1) Laboratory Results - last 24 hr 04/21/18 04/21/18 04/21/18 04:50 04:50 04:50 WBC 6.2 RBC 4.93 Hgb 14.8 Hct 43.3 MCV 87.7 MCH 29.9 MCHC 34.1 RDW 15.6 H Plt Count 276 PT 13.0 INR 1.1 APTT 34.3 Sodium 140 Potassium 3.6 Chloride 106 Carbon Dioxide 26 Anion Gap 12 BUN 35 H Creatinine 1.7 H Est GFR ( Amer) 47 Est GFR (Non-Af Amer) 39 Random Glucose 83 Calcium 9.1 Total Bilirubin 0.4 AST 20 ALT 35 Alkaline Phosphatase 73 Total Protein 6.7 Albumin 3.3 L Globulin 3.5 Albumin/Globulin Ratio 0.9 L Fingerstick Blood Sugar Results: 106 Critical Care Progress Note - Nutrition Nutrition: Nutrition Category Date Time Status NPO Diet [DIET] Diets 04/21/18 Breakfast Active <Neeraj Sandoval V - Last Filed: 04/21/18 13:54> CCU Subjective - Physician Review Events Since Last Encounter (Free Text): 04/21/18 13:52 patient is seen and examined at bedside. case discussed in am icu rounds. agree with plan of care as detailed in Resident's note CCU Objective - Vital Signs / Intake & Output Intake and Output (Last 8hrs): Intake & Output 04/20/18 04/21/18 04/21/18 22:59 06:59 14:59 Intake Total 111 40 750 Output Total 600 Balance -489 40 750 Intake: IV 111 40 750 Output: Urine 600 Urine, Voided 600 Other: # Voids Urine, Voided 1 - Medications Active Medications: Active Medications Generic Name Dose Route Start Last Admin Trade Name Freq PRN Reason Stop Dose Admin Acetaminophen 650 mg 04/16/18 19:16 Tylenol 325mg Tab PO Q6 PRN Pain, Mild (1-3) Atorvastatin Calcium 10 mg 04/16/18 22:00 04/20/18 21:13 Lipitor PO 10 mg HS JAMES Administration Bethanechol Chloride 25 mg 04/17/18 17:00 04/21/18 09:32 Urecholine PO Not Given TID JAMES Bethanechol Chloride 50 mg 04/17/18 22:00 04/20/18 21:13 Urecholine PO 50 mg HS JAMES Administration Clonazepam 0.5 mg 04/16/18 17:20 04/20/18 16:16 Klonopin PO 0.5 mg DAILY PRN Administration Anxiety Home Med 80 mg 04/18/18 09:00 Febuxostat [Uloric] PO DAILY [facility] Labetalol HCl 20 mg 04/16/18 18:31 04/20/18 18:11 Trandate IVP 20 mg Q3 PRN Administration Systolic Blood Pressure Metoprolol Tartrate 25 mg 04/20/18 21:00 04/21/18 09:37 Lopressor PO Not Given Q12 [facility] Morphine Sulfate 2 mg 04/21/18 13:18 Morphine IVP Q4 PRN Pain, moderate (4-7) Sevelamer Carbonate 800 mg 04/17/18 09:00 04/21/18 09:32 Renvela PO Not Given TID [facility] Sodium Bicarbonate 650 mg 04/17/18 21:00 04/21/18 09:32 Sodium Bicarbonate Tab PO Not Given Q12 JAMES Tamsulosin HCl 0.4 mg 04/16/18 22:00 04/20/18 21:14 Flomax PO 0.4 mg HS JAMES Administration Temazepam 15 mg 04/18/18 00:16 04/19/18 23:11 Restoril PO 15 mg HS PRN Administration Sleep Valproate Sodium 500 mg 04/19/18 17:00 04/21/18 09:31 Depakene Oral Soln PO Not Given BID JAMES - Patient Studies Lab Studies: Lab Studies 04/21/18 04/21/18 04/21/18 Range/Units 11:10 04:50 04:50 WBC (4.8-10.8) K/uL RBC (4.40-5.90) Mil/uL Hgb (12.0-18.0) g/dL Hct (35.0-51.0) % MCV (80.0-94.0) fl MCH (27.0-31.0) pg MCHC (33.0-37.0) g/dL RDW (11.5-14.5) % Plt Count (130-400) K/uL PT 13.0 (9.8-13.1) Seconds INR 1.1 APTT 34.3 (25.6-37.1) Seconds Sodium 140 (132-148) mmol/l Potassium 3.6 (3.6-5.0) MMOL/L Chloride 106 (98-107) mmol/L Carbon Dioxide 26 (22-30) mmol/L Anion Gap 12 (10-20) BUN 35 H (9-20) mg/dl Creatinine 1.7 H (0.8-1.5) mg/dl Est GFR ( Amer) 47 Est GFR (Non-Af Amer) 39 Random Glucose 83 (75-110) mg/dL Calcium 9.1 (8.4-10.2) mg/dL Total Bilirubin 0.4 (0.2-1.3) mg/dl AST 20 (17-59) U/L ALT 35 (21-72) U/L Alkaline Phosphatase 73 (38-126) U/L Total Protein 6.7 (6.3-8.2) G/DL Albumin 3.3 L (3.5-5.0) g/dL Globulin 3.5 (2.2-3.9) gm/dL Albumin/Globulin Ratio 0.9 L (1.0-2.1) Blood Type O POSITIVE Antibody Screen Negative Crossmatch See Detail BBK History Checked Patient has bt 04/21/18 Range/Units 04:50 WBC 6.2 (4.8-10.8) K/uL RBC 4.93 (4.40-5.90) Mil/uL Hgb 14.8 (12.0-18.0) g/dL Hct 43.3 (35.0-51.0) % MCV 87.7 (80.0-94.0) fl MCH 29.9 (27.0-31.0) pg MCHC 34.1 (33.0-37.0) g/dL RDW 15.6 H (11.5-14.5) % Plt Count 276 (130-400) K/uL PT (9.8-13.1) Seconds INR APTT (25.6-37.1) Seconds Sodium (132-148) mmol/l Potassium (3.6-5.0) MMOL/L Chloride (98-107) mmol/L Carbon Dioxide (22-30) mmol/L Anion Gap (10-20) BUN (9-20) mg/dl Creatinine (0.8-1.5) mg/dl Est GFR ( Amer) Est GFR (Non-Af Amer) Random Glucose (75-110) mg/dL Calcium (8.4-10.2) mg/dL Total Bilirubin (0.2-1.3) mg/dl AST (17-59) U/L ALT (21-72) U/L Alkaline Phosphatase (38-126) U/L Total Protein (6.3-8.2) G/DL Albumin (3.5-5.0) g/dL Globulin (2.2-3.9) gm/dL Albumin/Globulin Ratio (1.0-2.1) Blood Type Antibody Screen Crossmatch BBK History Checked Laboratory Results - last 24 hr 04/21/18 04/21/18 04/21/18 04:50 04:50 04:50 WBC 6.2 RBC 4.93 Hgb 14.8 Hct 43.3 MCV 87.7 MCH 29.9 MCHC 34.1 RDW 15.6 H Plt Count 276 PT 13.0 INR 1.1 APTT 34.3 Sodium 140 Potassium 3.6 Chloride 106 Carbon Dioxide 26 Anion Gap 12 BUN 35 H Creatinine 1.7 H Est GFR ( Amer) 47 Est GFR (Non-Af Amer) 39 Random Glucose 83 Calcium 9.1 Total Bilirubin 0.4 AST 20 ALT 35 Alkaline Phosphatase 73 Total Protein 6.7 Albumin 3.3 L Globulin 3.5 Albumin/Globulin Ratio 0.9 L Blood Type Antibody Screen Crossmatch BBK History Checked 04/21/18 11:10 WBC RBC Hgb Hct MCV MCH MCHC RDW Plt Count PT INR APTT Sodium Potassium Chloride Carbon Dioxide Anion Gap BUN Creatinine Est GFR ( Amer) Est GFR (Non-Af Amer) Random Glucose Calcium Total Bilirubin AST ALT Alkaline Phosphatase Total Protein Albumin Globulin Albumin/Globulin Ratio Blood Type O POSITIVE Antibody Screen Negative Crossmatch See Detail BBK History Checked Patient has bt Critical Care Progress Note - Nutrition Nutrition: Nutrition Category Date Time Status NPO Diet [DIET] Diets 04/21/18 Breakfast Active
[2018-04-21] MEDS ORDERED: Propofol 10 mg/ml Inj (20 ML) ONE (10:35)
[2018-04-21] MEDS ORDERED: Phenylephrine 10 mg/ml Inj ONE (10:36)
[2018-04-21] MEDS ORDERED: Succinylcholine 200 mg/10 ml Inj IV ONE (10:36)
[2018-04-21] MEDS ORDERED: Lidocaine 4% (Laryng-O-Jet) Kit MM ONE (10:36)
[2018-04-21] MEDS ORDERED: Rocuronium 10 mg/ml (5 ml) ONE (10:36)
[2018-04-21] MEDS ORDERED: Esmolol 100 mg/10ml Inj IV ONE (10:45)
[2018-04-21] MEDS ORDERED: Lidocaine 1% w Epi 1:100,000 Inj ONE (11:02)
[2018-04-21] MEDS ORDERED: Bacitracin Ointment 30 GM TUBE ONE (11:02)
[2018-04-21] MEDS ORDERED: Absorbable Gelatin Sponge Size 12-7 ONE ×2 (11:02→12:33)
[2018-04-21] MEDS ORDERED: ceFAZolin IV 1 gm in Dextrose 0 GM/0 ML BAG IVPB ONE (11:02)
[2018-04-21] MEDS ORDERED: Lidocaine 1% Inj (20ml) ONE (11:02)
[2018-04-21] MEDS ORDERED: Remifentanil 2 MG PDS IV ONE (11:41)
[2018-04-21] MEDS ORDERED: Sodium Chloride 0.9% 1,000 ML IV ONE (11:44)
[2018-04-21] MEDS ORDERED: ePHEDrine 50 mg/ml Inj ONE (11:58)
[2018-04-21] MEDS ORDERED: cefTRIAXone (Rocephin) 1 gm Inj IVPB ONE (12:05)
[2018-04-21] MEDS ORDERED: cefTRIAXone (Rocephin) 1 gm Inj ONE (12:07)
[2018-04-21] MEDS ORDERED: Lidocaine/Epi 1% 1:100000 20 ML IJ ONE (12:19)
[2018-04-21] MEDS ORDERED: Absorbable Gelatin Sponge Size 12-7 TP ONE (12:35)
[2018-04-21] MEDS ORDERED: Thrombin Topical 5,000 Int Units Spray Kit TOP ONE (12:35)
[2018-04-21] MEDS ORDERED: HEMOSTATIC MATRIX 10 ML DIS.NEEDLE TOP ONE (12:45)
[2018-04-21] MEDS ORDERED: Neostigmine 1:1000 (1 mg/ml) Inj ONE (13:01)
[2018-04-21] MEDS ORDERED: Bacitracin OINT 15GM TOP ONE (13:19)
[2018-04-21] MEDS: Oxycodone/Acetaminophen 5/325 mg Tab PO PRN ×2 (16:37→20:27)
[2018-04-21] MEDS: Labetalol 5mg/ml (4ml) IVP PRN (17:21)
--- NOTE | 2018-04-21 19:35 | PN ---
DATE: 04/21/2018 SUBJECTIVE: The patient underwent bilateral craniotomy with evacuation of subdural hematoma, returned to the ICU. He denies any chest pain or shortness of breath. PHYSICAL EXAMINATION: VITAL SIGNS: Blood pressure 160/86, heart rate 64, temperature 97.4, respirations 20. CHEST: Clear. HEART: S1, S2 regular. EXTREMITIES: No edema. LABORATORY DATA: Today's hemoglobin and hematocrit 14.8 and 43.3, white count and platelet count are within normal limits. Today's SMA-7 is within normal limits, except BUN and creatinine are 35 and 1.7. DIAGNOSTIC DATA: Chest CT scan that was performed yesterday revealed aneurysmal dilatation limited to the ascending aorta and measurements were 5.5 x 5.4 cm. The descending aorta is normal in caliber. ASSESSMENT: 1. Ascending aortic aneurysm. 2. Status post bilateral craniotomy for evacuation of subdural hematoma. 3. Hypertension. 4. Chronic insufficiency. RECOMMENDATIONS: Continue Lipitor 10 mg once a day, morphine sulfate 2 mg intravenously every 4 hours p.r.n., labetalol 20 mg intravenously every 3 hours p.r.n. I discussed the case with the cardiothoracic surgeon, Dr. Rowe who is willing to evaluate the patient after his recovery from his craniotomy and evacuation of subdural hematoma and see him as an outpatient. In the meantime, I would request postoperative EKG. Yobani Arthur MD
[2018-04-21] MEDS: Bethanechol 50 MG TAB PO SCH (21:13)
[2018-04-22 05:16] LABS: BASO % 0.2 % (0.0-2.0); EOS % 0.1 % (0.0-4.0); HEMOGLOBIN 14.3 g/dL (12.0-18.0); LYMPH # 0.6 K/uL (1.0-4.3); LYMPH % 7.4 % (20.0-40.0); MEAN CELL VOLUME 87.3 fl (80.0-94.0); MEAN CORPUSCULAR HEMOGLOBIN 29.1 pg (27.0-31.0); MEAN CORPUSCULAR HGB CONC 33.3 g/dL (33.0-37.0); MEAN PLATELET VOLUME 8.4 fl (7.2-11.7); MONO # 0.6 K/uL (0.0-0.8); MONO % 7.2 % (0.0-10.0); NEUT # 7.5 K/uL (1.8-7.0); NEUT % 85.1 % (50.0-75.0); PLATELET COUNT 240 K/uL (130-400); RBC 4.92 Mil/uL (4.40-5.90); RED CELL DISTRIBUTION WIDTH 15.7 % (11.5-14.5); WHITE BLOOD COUNT 8.8 K/uL (4.8-10.8)
[2018-04-22 05:33] LABS: ALB/GLOB RATIO 0.9 (1.0-2.1); CALCIUM 8.6 mg/dL (8.4-10.2)
[2018-04-22 06:25] LABS: BANDS 1 % (0-2); BASOPHIL 1 % (0-2); LYMPHOCYTE 5 % (20-50); MONOCYTE 4 % (0-10); NEUTROPHIL 89 % (42-75); TOTAL CELLS COUNTED 100
[2018-04-22 06:27] LABS: PLATELET ESTIMATE NORMAL (NORMAL)
--- NOTE | 2018-04-22 08:40 | CP.CCUPN ---
<Rancho Hatch - Last Filed: 04/22/18 13:21> CCU Subjective - Physician Review Subjective (Free Text): 04/22/18 11:03 83 y/o male who is admitted for evaluation and treatment of b/l subdural hematoma and 5.5x5.4cm ascending aortic aneurysm. -Patient seen and examined this morning at bedside, NAD, AAOx3. Patient is POD#1 s/p B/l gali hole surgical intervention, evacuation of subdural hematoma and 2 cranial drain placed (minimum ouput). Patient reports 5/10 headache this morning but reports no weakness, aphasia or any sensory/mental deficit. VS: HR in 50s, BP stable 125/73, Spo2 >95% on NC, RR 18 ROS: No other pertinent negs or positives on 10+ system review. 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 The possibility of acute on subacute or chronic hemorrhage cannot be excluded. Mild mass effect on the brain slightly more on the right. No evidence of significant midline shift. -CT Head (04/17/18): Stable bilateral subacute subdural hematomata remaining somewhat larger in volume at the right when compared to the left. No definite acute hemorrhage with left subdural hematoma somewhat more heterogeneous in density than the right once again. No definite significant midline shift appreciable. Basilar cisterns remain prominent. Likely mass effect effaces cerebral vertex sulci mildly once again. Diffuse cerebral atrophy reiterated as well as limited chronic microangiopathy. No acute parenchymal findings intrinsically. -Head and Neck MRA (04/17/18): unremarkable -ECHO w/Bubble done: EF 60-65%, mild AR, Dilated Aorta -Chest CT: 5.5x5.4cm ascending aortic aneurysm IMPRESSION/PROBLEMS: - B/L Subdural Hematoma, Non-traumatic, S/p b/l craniotomy and evacuation, POD#1 - Ascending Aortic Aneurysm, 5.5x5.4 cm - Hypertension - CKD stage III - BPH PLAN: - Continue Neuro management: S/p b/l craniotomy and evacuation, 2 cranial drain placed (minimum ouput), Possible head CT - Patient was cleared by Cardio/Dr. dowling for Neuro-intervention for SDH, aware of 5.5x5.4cm ascending aortic aneurysm - As per Cardio-thoracic surgery: CT angio of the chest for further evaluation of AAA, patient has CKD, pt refuses any further work ups for AAA at this time - C/w Metoprolol Tartrate 25mg PO BID, Labetalol PRN, C/w Lipitor and Flomax, C/w Valproic acid 500mg PO BID, HOLD Aspirin - C/w pain management Case discussed with ICU attending 04/22/18 11:17 CCU Objective - Vital Signs / Intake & Output Vital Signs (Last 4 hours): Vital Signs Temp Pulse Resp BP Pulse Ox 04/22/18 08:00 97.1 F L 61 16 111/63 96 04/22/18 06:00 58 L 17 115/53 L 96 Intake and Output (Last 8hrs): Intake & Output 04/21/18 04/22/18 04/22/18 22:59 06:59 14:59 Intake Total 1120 120 Output Total 585 Balance 1120 -465 Weight 185 lb 12.8 oz Intake: IV 600 Oral 520 120 Output: Drainage 260 Left Head 200 Right Head 60 Urine 325 Urine, Voided 325 - Medications Active Medications: Active Medications Generic Name Dose Route Start Last Admin Trade Name Freq PRN Reason Stop Dose Admin Acetaminophen 650 mg 04/16/18 19:16 Tylenol 325mg Tab PO Q6 PRN Pain, Mild (1-3) Atorvastatin Calcium 10 mg 04/16/18 22:00 04/21/18 21:13 Lipitor PO 10 mg HS JAMES Administration Bethanechol Chloride 25 mg 04/17/18 17:00 04/21/18 17:01 Urecholine PO Not Given TID JAMES Bethanechol Chloride 50 mg 04/17/18 22:00 04/21/18 21:13 Urecholine PO 50 mg HS JAMES Administration Clonazepam 0.5 mg 04/16/18 17:20 04/20/18 16:16 Klonopin PO 0.5 mg DAILY PRN Administration Anxiety Labetalol HCl 20 mg 04/16/18 18:31 04/21/18 17:21 Trandate IVP 20 mg Q3 PRN Administration Systolic Blood Pressure Metoprolol Tartrate 25 mg 04/20/18 21:00 04/21/18 22:05 Lopressor PO 25 mg Q12 JAMES Administration Morphine Sulfate 2 mg 04/21/18 13:18 04/21/18 22:02 Morphine IVP 2 mg Q4 PRN Administration Pain, moderate (4-7) Oxycodone/Acetaminophen 1 tab 04/21/18 16:16 04/21/18 20:27 Percocet 5/325 Mg Tab PO 04/24/18 16:17 1 tab Q4 PRN Administration Pain, severe (8-10) Sevelamer Carbonate 800 mg 04/17/18 09:00 04/21/18 16:54 Renvela PO Not Given TID JAMES Sodium Bicarbonate 650 mg 04/17/18 21:00 04/21/18 21:14 Sodium Bicarbonate Tab PO 650 mg Q12 JAMES Administration Tamsulosin HCl 0.4 mg 04/16/18 22:00 04/21/18 21:13 Flomax PO 0.4 mg HS JAMES Administration Temazepam 15 mg 04/18/18 00:16 04/19/18 23:11 Restoril PO 15 mg HS PRN Administration Sleep Valproate Sodium 500 mg 04/19/18 17:00 04/21/18 16:52 Depakene Oral Soln PO 500 mg BID JAMES Administration - Patient Studies Lab Studies: Lab Studies 04/22/18 04/22/18 04/21/18 Range/Units 04:30 04:30 11:10 WBC 8.8 (4.8-10.8) K/uL RBC 4.92 (4.40-5.90) Mil/uL Hgb 14.3 (12.0-18.0) g/dL Hct 43.0 (35.0-51.0) % MCV 87.3 (80.0-94.0) fl MCH 29.1 (27.0-31.0) pg MCHC 33.3 (33.0-37.0) g/dL RDW 15.7 H (11.5-14.5) % Plt Count 240 (130-400) K/uL MPV 8.4 (7.2-11.7) fl Neut % (Auto) 85.1 H (50.0-75.0) % Lymph % (Auto) 7.4 L (20.0-40.0) % [place] % (Auto) 7.2 (0.0-10.0) % Eos % (Auto) 0.1 (0.0-4.0) % Baso % (Auto) 0.2 (0.0-2.0) % Neut # (Auto) 7.5 H (1.8-7.0) K/uL Lymph # (Auto) 0.6 L (1.0-4.3) K/uL [place] # (Auto) 0.6 (0.0-0.8) K/uL Eos # (Auto) 0.0 (0.0-0.7) K/uL Baso # (Auto) 0.0 (0.0-0.2) K/uL Neutrophils % (Manual) 89 H (42-75) % Band Neutrophils % 1 (0-2) % Lymphocytes % (Manual) 5 L (20-50) % Monocytes % (Manual) 4 (0-10) % Basophils % (Manual) 1 (0-2) % Platelet Estimate Normal (NORMAL) Sodium 140 (132-148) mmol/l Potassium 4.4 (3.6-5.0) MMOL/L Chloride 111 H (98-107) mmol/L Carbon Dioxide 22 (22-30) mmol/L Anion Gap 11 (10-20) BUN 29 H (9-20) mg/dl Creatinine 1.4 (0.8-1.5) mg/dl Est GFR ( Amer) 59 Est GFR (Non-Af Amer) 49 Random Glucose 142 H (75-110) mg/dL Calcium 8.6 (8.4-10.2) mg/dL Total Bilirubin 0.7 (0.2-1.3) mg/dl AST 16 L (17-59) U/L ALT 28 (21-72) U/L Alkaline Phosphatase 69 (38-126) U/L Total Protein 6.4 (6.3-8.2) G/DL Albumin 3.0 L (3.5-5.0) g/dL Globulin 3.3 (2.2-3.9) gm/dL Albumin/Globulin Ratio 0.9 L (1.0-2.1) Blood Type O POSITIVE Antibody Screen Negative Crossmatch See Detail BBK History Checked Patient has bt Laboratory Results - last 24 hr 04/21/18 04/22/18 04/22/18 11:10 04:30 04:30 WBC 8.8 RBC 4.92 Hgb 14.3 Hct 43.0 MCV 87.3 MCH 29.1 MCHC 33.3 RDW 15.7 H Plt Count 240 MPV 8.4 Neut % (Auto) 85.1 H Lymph % (Auto) 7.4 L [place] % (Auto) 7.2 Eos % (Auto) 0.1 Baso % (Auto) 0.2 Neut # (Auto) 7.5 H Lymph # (Auto) 0.6 L [place] # (Auto) 0.6 Eos # (Auto) 0.0 Baso # (Auto) 0.0 Neutrophils % (Manual) 89 H Band Neutrophils % 1 Lymphocytes % (Manual) 5 L Monocytes % (Manual) 4 Basophils % (Manual) 1 Platelet Estimate Normal Sodium 140 Potassium 4.4 Chloride 111 H Carbon Dioxide 22 Anion Gap 11 BUN 29 H Creatinine 1.4 Est GFR ( Amer) 59 Est GFR (Non-Af Amer) 49 Random Glucose 142 H Calcium 8.6 Total Bilirubin 0.7 AST 16 L ALT 28 Alkaline Phosphatase 69 Total Protein 6.4 Albumin 3.0 L Globulin 3.3 Albumin/Globulin Ratio 0.9 L Blood Type O POSITIVE Antibody Screen Negative Crossmatch See Detail BBK History Checked Patient has bt Fingerstick Blood Sugar Results: 106 Critical Care Progress Note - Nutrition Nutrition: Nutrition Category Date Time Status Heart Healthy Diet [DIET] Diets 04/21/18 Dinner Active <Homero Fung - Last Filed: 04/22/18 18:13> CCU Subjective - Physician Review Subjective (Free Text): Attestation: Patient seen and examined at the bedside with Resident Dr. Kevin Hatch; and I agree with his outline of plans and management documented above and below, reflecting my review of all applicable clinical data, and participation in the care of the patient throughout the day in ICU; today, April 22, 2018.
[2018-04-22] MEDS: Valproic Acid 250 mg/5 ml UD Cup PO SCH ×2 (09:43→17:42)
--- NOTE | 2018-04-22 09:51 | CP.PCM.PN ---
<Antonio Reid - Last Filed: 04/22/18 13:17> Subjective - Date & Time of Evaluation Date of Evaluation: 04/22/18 Time of Evaluation: 07:45 - Subjective Subjective: Pt seen and examined at bedside. Reports 7/10 pain at site of incicsion. Denies neurological deficits, cp/sob/n/v. Tolerating diet during exam. Objective - Vital Signs/Intake and Output Vital Signs (last 24 hours): Temp Pulse Resp BP Pulse Ox 97.1 F L 61 16 111/63 96 04/22/18 08:00 04/22/18 08:00 04/22/18 08:00 04/22/18 08:00 04/22/18 08:00 Intake and Output: 04/22/18 04/22/18 06:59 18:59 Intake Total 460 Output Total 585 Balance -125 - Medications Medications: Current Medications Acetaminophen (Tylenol 325mg Tab) 650 mg PO Q6 PRN PRN Reason: Pain, Mild (1-3) Atorvastatin Calcium (Lipitor) 10 mg PO [facility] Last Admin: 04/21/18 21:13 Dose: 10 mg Bethanechol Chloride (Urecholine) 25 mg PO TID [facility] Last Admin: 04/21/18 17:01 Dose: Not Given Bethanechol Chloride (Urecholine) 50 mg PO [facility] Last Admin: 04/21/18 21:13 Dose: 50 mg Clonazepam (Klonopin) 0.5 mg PO DAILY PRN PRN Reason: Anxiety Last Admin: 04/20/18 16:16 Dose: 0.5 mg Labetalol HCl (Trandate) 20 mg IVP Q3 PRN PRN Reason: Systolic Blood Pressure Last Admin: 04/21/18 17:21 Dose: 20 mg Metoprolol Tartrate (Lopressor) 25 mg PO Q12 [facility] Last Admin: 04/21/18 22:05 Dose: 25 mg Morphine Sulfate (Morphine) 2 mg IVP Q4 PRN PRN Reason: Pain, moderate (4-7) Last Admin: 04/21/18 22:02 Dose: 2 mg Oxycodone/Acetaminophen (Percocet 5/325 Mg Tab) 1 tab PO Q4 PRN PRN Reason: Pain, severe (8-10) Stop: 04/24/18 16:17 Last Admin: 04/21/18 20:27 Dose: 1 tab Sevelamer Carbonate (Renvela) 800 mg PO TID [facility] Last Admin: 04/21/18 16:54 Dose: Not Given Sodium Bicarbonate (Sodium Bicarbonate Tab) 650 mg PO Q12 [facility] Last Admin: 04/21/18 21:14 Dose: 650 mg Tamsulosin HCl (Flomax) 0.4 mg PO HS [facility] Last Admin: 04/21/18 21:13 Dose: 0.4 mg Temazepam (Restoril) 15 mg PO HS PRN PRN Reason: Sleep Last Admin: 04/19/18 23:11 Dose: 15 mg Valproate Sodium (Depakene Oral Soln) 500 mg PO BID [facility] Last Admin: 04/21/18 16:52 Dose: 500 mg - Labs Labs: 04/22/18 04:30 04/22/18 04:30 PT 13.0 Seconds (9.8-13.1) 04/21/18 04:50 INR 1.1 04/21/18 04:50 APTT 34.3 Seconds (25.6-37.1) 04/21/18 04:50 Assessment and Plan - Assessment and Plan (Free Text) Assessment: 83 y/o male w/ pmhx of HTN, CKD III, DLD, BPH admitted for bilateral subdural hematomas. Plan: POD1: Bilateral craniotomy, evacuation of subdural hematoma; Dr. Lundberg -Head and Neck MRAs unremarkable -CT head 04/17: stable bilateral subacute subdural hematomata remaining somewhat larger in volume R>L. No definite aute hemorrhage w/ heterogenous density L>R. No definite significant midline shift appreciable. Basilar cisterns remain prominent. Likely mass effect effaces cerebral vertex sulci mildly again -CT head 04/16: sig for Bilateral cerebral subacute subdural hematoma slightly larger on the right and slightly higher density on the left. Mild mass effect on the brain slightly more on the right. No evidence of significant midline shift. -EKG: NSR with rate of 60-80's on seamer operator Bilateral subdural hematomas Spontaneous subacute/acute hematoma NIHSS 0, no residual weakness Neurosurgery: neuro checks q1Hr, keep head elevated maintain BP: systolic <140 neuro and neurosurgery: POD1: Bilateral craniotomy, evacuation of subdural hematoma; Dr. Toño Angelo: f/u CT, continue obs, d/c a line f/u CT Severely dilated aorta Echo: 04/17/2018 CT chest 5.5 x 5.4 cm ascending aortic aneurysm. Cardiology: Dr. Arthur: Lipitor 10 mg qd, Norvasc 10 mg qd, Trandate 20 mg IV q 3hr PRN. Cardiothoracic Surgery: Dr. Rowe: recommend CT angio of chest with [place] protocol prior to IV contrast. Pt declined further workup for dilated aorta HTN chronic, controlled maintain BP: systolic <140 Continue home meds Held aspirin CKD stage III chronic Continued home meds Dyslipidemia Continue Atorvastatin BPH chronic status post TURP Continue home meds DVT prophylaxis: held anticoag 2/2 recent surgery. SCDs Case dw Dr. Asael Reid MD PGY2 <Mariam Vyas - Last Filed: 04/22/18 16:25> Objective - Vital Signs/Intake and Output Vital Signs (last 24 hours): Temp Pulse Resp BP Pulse Ox 97.9 F 56 L 15 124/73 95 04/22/18 16:00 04/22/18 16:00 04/22/18 16:00 04/22/18 16:00 04/22/18 16:00 Intake and Output: 04/22/18 04/22/18 06:59 18:59 Intake Total 460 240 Output Total 585 Balance -125 240 - Medications Medications: Current Medications Acetaminophen (Tylenol 325mg Tab) 650 mg PO Q6 PRN PRN Reason: Pain, Mild (1-3) Atorvastatin Calcium (Lipitor) 10 mg PO HS [facility] Last Admin: 04/21/18 21:13 Dose: 10 mg Bethanechol Chloride (Urecholine) 25 mg PO TID [facility] Last Admin: 04/22/18 15:22 Dose: 25 mg Bethanechol Chloride (Urecholine) 50 mg PO HS [facility] Last Admin: 04/21/18 21:13 Dose: 50 mg Clonazepam (Klonopin) 0.5 mg PO DAILY PRN PRN Reason: Anxiety Last Admin: 04/20/18 16:16 Dose: 0.5 mg Hydromorphone HCl (Dilaudid) 0.5 mg IVP Q4H PRN PRN Reason: Pain, moderate (4-7) Last Admin: 04/22/18 15:22 Dose: 0.5 mg Labetalol HCl (Trandate) 20 mg IVP Q3 PRN PRN Reason: Systolic Blood Pressure Last Admin: 04/21/18 17:21 Dose: 20 mg Metoprolol Tartrate (Lopressor) 25 mg PO Q12 [facility] Last Admin: 04/22/18 09:48 Dose: Not Given Morphine Sulfate (Morphine) 2 mg IVP Q4 PRN PRN Reason: Pain, moderate (4-7) Last Admin: 04/21/18 22:02 Dose: 2 mg Oxycodone/Acetaminophen (Percocet 5/325 Mg Tab) 1 tab PO Q4 PRN PRN Reason: Pain, severe (8-10) Stop: 04/24/18 16:17 Last Admin: 04/21/18 20:27 Dose: 1 tab Sevelamer Carbonate (Renvela) 800 mg PO TID [facility] Last Admin: 04/22/18 15:22 Dose: 800 mg Sodium Bicarbonate (Sodium Bicarbonate Tab) 650 mg PO Q12 [facility] Last Admin: 04/22/18 09:49 Dose: 650 mg Tamsulosin HCl (Flomax) 0.4 mg PO HS [facility] Last Admin: 04/21/18 21:13 Dose: 0.4 mg Temazepam (Restoril) 15 mg PO HS PRN PRN Reason: Sleep Last Admin: 04/19/18 23:11 Dose: 15 mg Valproate Sodium (Depakene Oral Soln) 500 mg PO BID [facility] Last Admin: 04/22/18 09:43 Dose: 500 mg - Labs Labs: 04/22/18 04:30 04/22/18 04:30 PT 13.0 Seconds (9.8-13.1) 04/21/18 04:50 INR 1.1 04/21/18 04:50 APTT 34.3 Seconds (25.6-37.1) 04/21/18 04:50 Attending/Attestation - Attestation I have personally seen and examined this patient.: Yes I have fully participated in the care of the patient.: Yes I have reviewed all pertinent clinical information, including history, physical exam and plan: Yes Notes (Text): Bilateral Subdural Hematoma s/p Craniotomy with Evacuation of the Hematoma Ascending Aortic Aneurysm HTN CKD stage III -cont to monitor in ICU -NO ASA, anticoag -BP and HR control - pt to ff up with Dr Rowe( CT Surgery) as outpt for further mgt of Aortic aneurysm ( pt refused any work up for now ) - Pt on Depakote for seizure proph - cont Renagel and Sodium Bicarb - will continue IV ceftriaxone while pt has Subdural drains on - drain will be d/c tomorrw as per Neurosurgery
--- NOTE | 2018-04-22 10:34 | CP.PCM.PN ---
Subjective - Date & Time of Evaluation Date of Evaluation: 04/22/18 Time of Evaluation: 10:34 - Subjective Subjective: pod 1 a a ox3 EDGAR EOM full good st no drift still c/ bernal(normal) will get CT later cont obs d/c alex Objective - Vital Signs/Intake and Output Vital Signs (last 24 hours): Temp Pulse Resp BP Pulse Ox 97.1 F L 56 L 16 125/73 96 04/22/18 08:00 04/22/18 09:48 04/22/18 08:00 04/22/18 09:48 04/22/18 08:00 Intake and Output: 04/22/18 04/22/18 06:59 18:59 Intake Total 460 Output Total 585 Balance -125 - Medications Medications: Current Medications Acetaminophen (Tylenol 325mg Tab) 650 mg PO Q6 PRN PRN Reason: Pain, Mild (1-3) Atorvastatin Calcium (Lipitor) 10 mg PO HS [facility] Last Admin: 04/21/18 21:13 Dose: 10 mg Bethanechol Chloride (Urecholine) 25 mg PO TID [facility] Last Admin: 04/22/18 09:50 Dose: 25 mg Bethanechol Chloride (Urecholine) 50 mg PO HS [facility] Last Admin: 04/21/18 21:13 Dose: 50 mg Clonazepam (Klonopin) 0.5 mg PO DAILY PRN PRN Reason: Anxiety Last Admin: 04/20/18 16:16 Dose: 0.5 mg Hydromorphone HCl (Dilaudid) 0.5 mg IVP Q4H PRN PRN Reason: Pain, moderate (4-7) Last Admin: 04/22/18 10:24 Dose: 0.5 mg Labetalol HCl (Trandate) 20 mg IVP Q3 PRN PRN Reason: Systolic Blood Pressure Last Admin: 04/21/18 17:21 Dose: 20 mg Metoprolol Tartrate (Lopressor) 25 mg PO Q12 [facility] Last Admin: 04/22/18 09:48 Dose: Not Given Morphine Sulfate (Morphine) 2 mg IVP Q4 PRN PRN Reason: Pain, moderate (4-7) Last Admin: 04/21/18 22:02 Dose: 2 mg Oxycodone/Acetaminophen (Percocet 5/325 Mg Tab) 1 tab PO Q4 PRN PRN Reason: Pain, severe (8-10) Stop: 04/24/18 16:17 Last Admin: 04/21/18 20:27 Dose: 1 tab Sevelamer Carbonate (Renvela) 800 mg PO TID [facility] Last Admin: 04/22/18 09:48 Dose: 800 mg Sodium Bicarbonate (Sodium Bicarbonate Tab) 650 mg PO Q12 [facility] Last Admin: 04/22/18 09:49 Dose: 650 mg Tamsulosin HCl (Flomax) 0.4 mg PO HS [facility] Last Admin: 04/21/18 21:13 Dose: 0.4 mg Temazepam (Restoril) 15 mg PO HS PRN PRN Reason: Sleep Last Admin: 04/19/18 23:11 Dose: 15 mg Valproate Sodium (Depakene Oral Soln) 500 mg PO BID [facility] Last Admin: 04/22/18 09:43 Dose: 500 mg - Labs Labs: 04/22/18 04:30 04/22/18 04:30 PT 13.0 Seconds (9.8-13.1) 04/21/18 04:50 INR 1.1 04/21/18 04:50 APTT 34.3 Seconds (25.6-37.1) 04/21/18 04:50
--- NOTE | 2018-04-22 11:20 | OP ---
PROCEDURE DATE: 04/21/2018 PREOPERATIVE DIAGNOSIS: Left subacute subdural hematoma. POSTOPERATIVE DIAGNOSIS: Left subacute subdural hematoma. PROCEDURE: Left frontoparietal craniotomy and evacuation of subdural hematoma. SURGEON: Arsh Taylor MD TRIM TECHNICIAN: Raheel Angelo MD ANESTHESIA: General endotracheal. ESTIMATED BLOOD LOSS: 25 mL. COMPLICATIONS: None. JUSTIFICATION: The patient presented with bilateral subdural hematoma. He was immediately status post evacuation of the right subdural via craniotomy. DESCRIPTION OF PROCEDURE: A lazy S-type incision was traced out over the left frontal , scrubbed with acetone, painted and draped in the usual sterile manner. The incision was made with a 10-blade knife, carried down to the level of the calvarium. Self-retaining retractor was placed. Woodyard Crane Operator was used to make two gali holes in the anteroposterior extreme of the exposed calvarium. The dura was reflected off the inner table. The craniotome was then used to elevate this flap. Bulging dura was encountered. This was incised with bipolar and then a 15-blade. Immediately encountered was a mix of solid and liquid hematoma. This was all removed with irrigation suction technique. Irrigation was performed in 360-degree fashion under the exposed calvarium until irrigant returned clear throughout. Some of the membranes were taken out, coagulated and removed. membranes were coagulated with bipolar cautery. At this point, there was no evidence of any bleeding anywhere, and the irrigant returned clear throughout. At this point, a 12-Maori red rubber catheter with mixed holes cut into it was placed in the subdural space, tunneled out with a separate posterior stab incision heading out to the posterior gali hole. The dura was then covered with solid Gelfoam and some thrombinated powder Gelfoam mixed in. There was no way we could close the shredded dura. The bone flap was replaced using the RapidFix system. The wound was irrigated with antibiotic solution. The retractors were drawn. The area was closed using interrupted 2-0 Vicryl. The skin was closed with maria elena. Bacitracin ointment and dressing were placed. The red rubber catheter was then hooked up to a passive Friend drainage system. At this point, the patient was aroused from anesthesia and easily extubated. He was noted to be talking, following commands, moving all four extremities with good strength on his way to the recovery room. All counts were correct. No complications. Arsh Taylor MD
--- NOTE | 2018-04-22 11:21 | OP ---
PROCEDURE DATE: 04/21/2018 PREOPERATIVE DIAGNOSIS: Bilateral subacute subdural hematomas. POSTOPERATIVE DIAGNOSIS: Bilateral subacute subdural hematomas. PROCEDURES: Right frontoparietal craniotomy, evacuation of subdural hematoma. SURGEON: Arsh Taylor MD SENIOR SOLUTIONS ARCHITECT: Raheel Angelo MD ANESTHESIA: General endotracheal. ESTIMATED BLOOD LOSS: 25 mL. COMPLICATIONS: None. JUSTIFICATION: The patient presented with what was believed to be a seizure, was found to have rather large bilateral subacute subdural hematomas. He was recommended to undergo operative evacuation by a craniotomy. The nature of this procedure, the rationale behind it, alternatives, potential risks and complications were discussed with him at length. All his questions were answered. He fully understood all of the above and elected to proceed as offered. DESCRIPTION OF PROCEDURE: The patient was taken to the operating room, intubated, anesthetized, placed on the OR table in a supine position. Head placed in a donut. The area in the frontoparietal was hair-clipped. The entire head was then scrubbed, painted and draped in the usual sterile manner. Incision was traced down in a lazy-S type manner along the frontal . This was infiltrated with local anesthetic. After prepping and draping, the incision was made with a 10-blade knife, carried down to the level of the calvarium, 2 Gelpi retractors were placed to open the flap. The incident response analyst was used to make two gali holes in the anterior and posterior extents of the exposed calvarium. The flap was elevated with a craniotome. Bulging blue dura was immediately identified. This was opened with bipolar and subsequently a 15 blade. Under high pressure, we encountered typical liquified subdural hematoma. Copious amounts of 360-degree irrigation were performed until the irrigate returned clear. At this point, we tunneled out a separate 12-Faroese red rubber catheter with separate stab incision. This was left in place in the subdural space. The dura were too shredded with membranes to be reapproximated, thus 2 layers of Gelfoam were placed in the epidural space. The bone flaps were reapproximated using the RapidFlap system with the drainage catheter heading out through the posterior gali hole. Wound was then irrigated with antibiotic solution. The retractors withdrawn. Galea closed using interrupted inverted 2-0 Vicryl and the skin closed with maria elena, bacitracin ointment and dressings were placed. Counts were correct. Arsh Taylor MD
--- NOTE | 2018-04-22 12:48 | CP.PCM.PN ---
Subjective - Date & Time of Evaluation Date of Evaluation: 04/22/18 Time of Evaluation: 12:48 - Subjective Subjective: Neurology Consultation Follow-Up Note: Mr. Chun was evaluated this afternoon in the ICU. He is POD#1 bilateral gali hole surgical intervention, evacuation of subdural hematoma and 2 cranial drain placed. He admits to feeling generally well considering his procedure. He complains of a headache and pain to the surgical site, which I explained to him was expected. He denies dizziness, visual changes, chest pain, palpitations, s hortness of breath, n/v/d. No acute overnight events. Objective - Vital Signs/Intake and Output Vital Signs (last 24 hours): Temp Pulse Resp BP Pulse Ox 98.4 F 20 L 14 111/74 98 04/22/18 12:00 04/22/18 12:00 04/22/18 12:00 04/22/18 12:00 04/22/18 12:00 Intake and Output: 04/22/18 04/22/18 06:59 18:59 Intake Total 460 240 Output Total 585 Balance -125 240 - Medications Medications: Current Medications Acetaminophen (Tylenol 325mg Tab) 650 mg PO Q6 PRN PRN Reason: Pain, Mild (1-3) Atorvastatin Calcium (Lipitor) 10 mg PO HS [facility] Last Admin: 04/21/18 21:13 Dose: 10 mg Bethanechol Chloride (Urecholine) 25 mg PO TID [facility] Last Admin: 04/22/18 09:50 Dose: 25 mg Bethanechol Chloride (Urecholine) 50 mg PO HS [facility] Last Admin: 04/21/18 21:13 Dose: 50 mg Clonazepam (Klonopin) 0.5 mg PO DAILY PRN PRN Reason: Anxiety Last Admin: 04/20/18 16:16 Dose: 0.5 mg Hydromorphone HCl (Dilaudid) 0.5 mg IVP Q4H PRN PRN Reason: Pain, moderate (4-7) Last Admin: 04/22/18 10:24 Dose: 0.5 mg Labetalol HCl (Trandate) 20 mg IVP Q3 PRN PRN Reason: Systolic Blood Pressure Last Admin: 04/21/18 17:21 Dose: 20 mg Metoprolol Tartrate (Lopressor) 25 mg PO Q12 [facility] Last Admin: 04/22/18 09:48 Dose: Not Given Morphine Sulfate (Morphine) 2 mg IVP Q4 PRN PRN Reason: Pain, moderate (4-7) Last Admin: 04/21/18 22:02 Dose: 2 mg Oxycodone/Acetaminophen (Percocet 5/325 Mg Tab) 1 tab PO Q4 PRN PRN Reason: Pain, severe (8-10) Stop: 04/24/18 16:17 Last Admin: 04/21/18 20:27 Dose: 1 tab Sevelamer Carbonate (Renvela) 800 mg PO TID [facility] Last Admin: 04/22/18 09:48 Dose: 800 mg Sodium Bicarbonate (Sodium Bicarbonate Tab) 650 mg PO Q12 [facility] Last Admin: 04/22/18 09:49 Dose: 650 mg Tamsulosin HCl (Flomax) 0.4 mg PO HS [facility] Last Admin: 04/21/18 21:13 Dose: 0.4 mg Temazepam (Restoril) 15 mg PO HS PRN PRN Reason: Sleep Last Admin: 04/19/18 23:11 Dose: 15 mg Valproate Sodium (Depakene Oral Soln) 500 mg PO BID [facility] Last Admin: 04/22/18 09:43 Dose: 500 mg - Labs Labs: 04/22/18 04:30 04/22/18 04:30 PT 13.0 Seconds (9.8-13.1) 04/21/18 04:50 INR 1.1 04/21/18 04:50 APTT 34.3 Seconds (25.6-37.1) 04/21/18 04:50 - Constitutional Appears: Well, Non-toxic, No Acute Distress - Head Exam Head Exam: NORMOCEPHALIC Additional comments: surgical sites noted b/l. - Eye Exam Eye Exam: EOMI, Normal appearance, PERRL Pupil Exam: NORMAL ACCOMODATION, PERRL - ENT Exam ENT Exam: Mucous Membranes Moist - Neck Exam Neck Exam: Full ROM, Normal Inspection - Respiratory Exam Respiratory Exam: NORMAL BREATHING PATTERN - Extremities Exam Extremities Exam: Full ROM, Normal Inspection - Neurological Exam Neurological Exam: Alert, Awake, CN II-XII Intact, Oriented x3, Reflexes Normal Neuro motor strength exam: Left Upper Extremity: 5 (chemical detection expert 5/5), Right Upper Extremity: 5 (chemical detection expert 5/5), Left Lower Extremity: 5 (chemical detection expert 5/5), Right Lower Extremity: 5 (chemical detection expert 5/5) Additional comments: speech clear, fluid sensation intact fine motor intact gait not assessed - Psychiatric Exam Psychiatric exam: Normal Affect, Normal Mood - Skin Skin Exam: Normal Color Assessment and Plan (1) Subdural hematoma Assessment & Plan: Imaging: -CT Head (04/16/18): Bilateral cerebral convexity acute or subacute subdural hematoma slightly larger on the right and slightly higher density on the left. The possibility of acute on subacute or chronic hemorrhage cannot be excluded. Mild mass effect on the brain slightly more on the right. No evidence of significant midline shift. -CT Head (04/17/18): Stable bilateral subacute subdural hematomata remaining somewhat larger in volume at the right when compared to the left. No definite acute hemorrhage with left subdural hematoma somewhat more heterogeneous in density than the right once again. No definite significant midline shift appreciable. Basilar cisterns remain prominent. Likely mass effect effaces cer ebral vertex sulci mildly once again. Diffuse cerebral atrophy reiterated as well as limited chronic microangiopathy. No acute parenchymal findings intrinsically. -Head and Neck MRA (04/17/18): unremarkable -ECHO w/Bubble done: see official report. Mr. Chun is doing generally well post-op. -Management post-op per Neurosurgical team. -Continue afib and BP control -Repeat CT Head per Neurosurgery -We will continue to follow the pt. -Notify neuro team of any acute changes. Case discussed with Dr. Weaver Thank you for this consult. Status: Acute
--- NOTE | 2018-04-22 17:27 | CT ---
Date of service: 04/22/2018 PROCEDURE: CT HEAD WITHOUT CONTRAST. HISTORY: f/u COMPARISON: 04/17/2018. CT head 04/16/2018 CT head TECHNIQUE: Axial computed tomography images were obtained through the head/brain without intravenous contrast. Supplemental Coronal and Sagittal projections created and reviewed. Radiation dose: Total exam DLP = 883.37 mGy-cm. This CT exam was performed using one or more of the following dose reduction techniques: Automated exposure control, adjustment of the mA and/or kV according to patient size, and/or use of iterative reconstruction technique. FINDINGS: HEMORRHAGE: Postoperative findings following evacuation of bilateral subdural fluid collections. There is persistent extra-axial fluid on the left without an appreciable air-fluid level. At a comparable level on the prior study the thickness of the collection was 12.9 mm and currently 8.3 mm. BRAIN: Effacement of sub cortical sulci identified bilaterally particularly both frontal and parietal lobes. There is no midline shift. The degree of extra-axial areas greater than would be expected and this may be producing mass effect upon cortical sulci. VENTRICLES: Ventricles are midline. Basilar cisterns are normal as is the appearance of the 4th ventricle. CALVARIUM: Post craniotomy changes identified bilaterally. PARANASAL SINUSES: Unremarkable as visualized. No significant inflammatory changes. MASTOID AIR CELLS: Unremarkable as visualized. No inflammatory changes. OTHER FINDINGS: None. IMPRESSION: Status post evacuation of bilateral extra-axial fluid collections. No appreciable, residual collection on the right. There is residual fluid in the extra-axial space on the left. Greater than expected air within the calvarium. This has resulted in effacement of cortical sulci. No midline shift identified nor is there evidence of herniation.
--- NOTE | 2018-04-22 20:05 | CARD ---
APPROVED REPORT Date of service: 04/21/2018 EKG Measurement Heart [id number] OR [id number] <Conclusion> Sinus bradycardia Left axis deviation Inferior infarct, age undetermined Abnormal ECG
--- NOTE | 2018-04-22 20:42 | PN ---
DATE: 04/22/2018 FOLLOWUP SUBJECTIVE: The patient complains headache. He denies any chest pain or reported arrhythmia. The patient had urinary retention and underwent straight catheterization. PHYSICAL EXAMINATION: VITAL SIGNS: Blood pressure 124/73, heart rate 66, temperature 97.9, respirations 15. HEENT: No pallor or icterus. CHEST: Clear. HEART: S1 and S2 are regular. EXTREMITIES: No edema. LABORATORY DATA: Today's hemoglobin and hematocrit 14.3 and 43, white count and platelet count are within normal limits. Today's SMA-7. Sodium 140, potassium 4.4, chloride 111, CO2 of 22, glucose 142, BUN 29, and creatinine 1.4. Postoperative EKG performed yesterday reveals sinus bradycardia, rate of 57, inferior infarct, age indeterminate. ASSESSMENT: 1. Status post evacuation of bilateral subdural hematoma. 2. Mild aortic insufficiency. 3. Ascending aortic aneurysm. 4. Diastolic left ventricular dysfunction. 5. Chronic renal insufficiency. 6. Mild sinus bradycardia. RECOMMENDATIONS: Continue IV Rocephin at 1 g daily, oral Depakene at 500 mg twice a daily, Dilaudid 0.5 mg intravenously every 4 hours p.r.n., Lipitor 10 mg once a day, oral pressor for heart rate below 60. Continue Trandate 200 mg intravenously every 3 hours p.r.n. I discussed the case with cardiothoracic surgeon, Dr. Rowe, who agreed with need for surgery after complete recovery from his bilateral craniotomy and evacuation of subdural hematoma, and the patient can see Dr. Rowe as an outpatient. Yobani Arthur MD
[2018-04-22] MEDS: Bethanechol 50 MG TAB PO SCH (21:20)
[2018-04-23 05:50] LABS: ALB/GLOB RATIO 0.9 (1.0-2.1); ALBUMIN 3.1 g/dL (3.5-5.0)
[2018-04-23 08:08] LABS: BASO # 0.1 K/uL (0.0-0.2); BASO % 1.1 % (0.0-2.0); EOS % 0.1 % (0.0-4.0); HEMOGLOBIN 14.5 g/dL (12.0-18.0); LYMPH # 0.8 K/uL (1.0-4.3); LYMPH % 8.8 % (20.0-40.0); MEAN CORPUSCULAR HEMOGLOBIN 29.3 pg (27.0-31.0); MEAN CORPUSCULAR HGB CONC 32.6 g/dL (33.0-37.0); MEAN PLATELET VOLUME 8.9 fl (7.2-11.7); MONO # 0.8 K/uL (0.0-0.8); MONO % 8.3 % (0.0-10.0); NEUT # 7.8 K/uL (1.8-7.0); NEUT % 81.7 % (50.0-75.0); RBC 4.94 Mil/uL (4.40-5.90); RED CELL DISTRIBUTION WIDTH 15.6 % (11.5-14.5); WHITE BLOOD COUNT 9.5 K/uL (4.8-10.8)
[2018-04-23] MEDS ORDERED: Acetaminophen-Codeine 300/30 mg Tab PO PRN (10:12)
[2018-04-23] MEDS: Valproic Acid 250 mg/5 ml UD Cup PO SCH ×2 (10:44→17:51)
--- NOTE | 2018-04-23 10:44 | CP.CCUPN ---
<Rancho Hatch - Last Filed: 04/23/18 11:22> CCU Subjective - Physician Review Subjective (Free Text): 04/23/18 83 y/o male who is admitted for evaluation and treatment of b/l subdural hematoma and 5.5x5.4cm ascending aortic aneurysm. -Patient seen and examined this morning at bedside, NAD, AAOx3. Patient is POD#2 s/p B/l gali hole surgical intervention, evacuation of subdural hematoma and s/p 2 cranial drain placed (24 hr output, 65R and 265L). Patient reports headache since surgery but reports no weakness, aphasia or any sensory/mental deficit. VS: HR in 50s, BP stable 146/78, Spo2 >95% on NC, RR 14 ROS: No other pertinent negs or positives on 10+ system review. 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 The possibility of acute on subacute or chronic hemorrhage cannot be excluded. Mild mass effect on the brain slightly more on the right. No evidence of significant midline shift. -CT Head (04/17/18): Stable bilateral subacute subdural hematomata remaining somewhat larger in volume at the right when compared to the left. No definite acute hemorrhage with left subdural hematoma somewhat more heterogeneous in density than the right once again. No definite significant midline shift appreciable. Basilar cisterns remain prominent. Likely mass effect effaces cerebral vertex sulci mildly once again. Diffuse cerebral atrophy reiterated as well as limited chronic microangiopathy. No acute parenchymal findings intrinsically. -Head and Neck MRA (04/17/18): unremarkable -ECHO w/Bubble done: EF 60-65%, mild AR, Dilated Aorta -Chest CT: 5.5x5.4cm ascending aortic aneurysm IMPRESSION/PROBLEMS: - B/L Subdural Hematoma, Non-traumatic, S/p b/l craniotomy and evacuation, POD#2 - Ascending Aortic Aneurysm, 5.5x5.4 cm - Hypertension - CKD stage III - BPH/Urinary retention PLAN: - Continue Neuro management: S/p b/l craniotomy and evacuation, s/p 2 cranial drain placed (24 hr output, 65R and 265L), Repeat Head CT reviewed yesterday - Patient was cleared by Cardio/Dr. dowling for Neuro-intervention for SDH, aware of 5.5x5.4cm ascending aortic aneurysm - As per Cardio-thoracic surgery: CT angio of the chest for further evaluation of AAA, patient has CKD, pt refuses any further work ups for AAA at this time. possible outpatient management - C/w Metoprolol Tartrate 25mg PO BID, Consider adding vasotec, C/w Lipitor and Flomax, C/w Valproic acid 500mg PO BID, HOLD Aspirin - Friend was placed this morning due to urinary retention, Consider Uro - C/w pain management, tylenol plus codeine, Percocet for severe - Possible transfer to [facility] Case discussed with ICU attending 04/23/18 11:22 CCU Objective - Vital Signs / Intake & Output Vital Signs (Last 4 hours): Vital Signs Temp Pulse Resp BP Pulse Ox 04/23/18 10:00 55 L 18 161/96 H 96 04/23/18 08:00 97.9 F 55 L 19 146/78 96 04/23/18 06:38 61 14 129/84 94 L Intake and Output (Last 8hrs): Intake & Output 04/22/18 04/23/18 04/23/18 22:59 06:59 14:59 Intake Total 465 150 200 Output Total 180 150 360 Balance 285 0 -160 Weight 185 lb 7 oz Intake: IV 0 Intake, Piggyback 100 Oral 365 150 200 Output: Drainage 180 150 60 Left Head 140 125 50 Right Head 40 25 10 Urine 300 Urethral (Friend) 300 - Physical Exam Head: Positive for: Normocephalic Pupils: Positive for: PERRL Conjunctiva: Positive for: Normal Mouth: Positive for: Moist Mucous Membranes Pharnyx: Positive for: Normal Nose (Internal): Positive for: Normal Inspection Neck: Positive for: Normal Range of Motion Respiratory/Chest: Positive for: Clear to Auscultation Cardiovascular: Positive for: Normal S1, S2 Abdomen: Positive for: Normal Bowel Sounds Upper Extremity: Positive for: Normal Inspection Lower Extremity: Positive for: Normal Inspection Neurological: Positive for: Speech Normal Skin: Positive for: Warm, Dry Psychiatric: Positive for: Alert - Medications Active Medications: Active Medications Generic Name Dose Route Start Last Admin Trade Name Freq PRN Reason Stop Dose Admin Acetaminophen 650 mg 04/16/18 19:16 Tylenol 325mg Tab PO Q6 PRN Pain, Mild (1-3) Acetaminophen/Codeine Phosphate 1 tab 04/23/18 10:12 Tylenol/Codeine 300 Mg/30 Mg PO Q4 PRN Pain, moderate (4-7) Atorvastatin Calcium 10 mg 04/16/18 22:00 04/22/18 21:21 Lipitor PO 10 mg HS JAMES Administration Bethanechol Chloride 25 mg 04/17/18 17:00 04/22/18 17:43 Urecholine PO 25 mg TID JAMES Administration Bethanechol Chloride 50 mg 04/17/18 22:00 04/22/18 21:20 Urecholine PO 50 mg HS JAMES Administration Clonazepam 0.5 mg 04/16/18 17:20 04/20/18 16:16 Klonopin PO 0.5 mg DAILY PRN Administration Anxiety Ceftriaxone Sodium 1 gm/ 100 mls @ 100 mls/hr 04/22/18 16:30 04/22/18 17:44 Sodium Chloride IVPB 100 mls/hr DAILY JAMES Administration Protocol Labetalol HCl 20 mg 04/16/18 18:31 04/21/18 17:21 Trandate IVP 20 mg Q3 PRN Administration Systolic Blood Pressure Metoprolol Tartrate 25 mg 04/20/18 21:00 04/22/18 22:36 Lopressor PO Not Given Q12 JAMES Oxycodone/Acetaminophen 1 tab 04/21/18 16:16 04/21/18 20:27 Percocet 5/325 Mg Tab PO 04/24/18 16:17 1 tab Q4 PRN Administration Pain, severe (8-10) Sevelamer Carbonate 800 mg 04/17/18 09:00 04/22/18 17:42 Renvela PO 800 mg TID JAMES Administration Sodium Bicarbonate 650 mg 04/17/18 21:00 04/22/18 20:49 Sodium Bicarbonate Tab PO 650 mg Q12 JAMES Administration Tamsulosin HCl 0.4 mg 04/16/18 22:00 04/22/18 21:21 Flomax PO 0.4 mg HS JAMES Administration Temazepam 15 mg 04/18/18 00:16 04/19/18 23:11 Restoril PO 15 mg HS PRN Administration Sleep Valproate Sodium 500 mg 04/19/18 17:00 04/22/18 17:42 Depakene Oral Soln PO 500 mg BID JAMES Administration - Patient Studies Lab Studies: Lab Studies 04/23/18 04/23/18 Range/Units 07:58 04:20 WBC 9.5 (4.8-10.8) K/uL RBC 4.94 (4.40-5.90) Mil/uL Hgb 14.5 (12.0-18.0) g/dL Hct 44.4 (35.0-51.0) % MCV 90.0 D (80.0-94.0) fl MCH 29.3 (27.0-31.0) pg MCHC 32.6 L (33.0-37.0) g/dL RDW 15.6 H (11.5-14.5) % Plt Count 237 (130-400) K/uL MPV 8.9 (7.2-11.7) fl Neut % (Auto) 81.7 H (50.0-75.0) % Lymph % (Auto) 8.8 L (20.0-40.0) % [place] % (Auto) 8.3 (0.0-10.0) % Eos % (Auto) 0.1 (0.0-4.0) % Baso % (Auto) 1.1 (0.0-2.0) % Neut # (Auto) 7.8 H (1.8-7.0) K/uL Lymph # (Auto) 0.8 L (1.0-4.3) K/uL [place] # (Auto) 0.8 (0.0-0.8) K/uL Eos # (Auto) 0.0 (0.0-0.7) K/uL Baso # (Auto) 0.1 (0.0-0.2) K/uL Sodium 142 (132-148) mmol/l Potassium 4.2 (3.6-5.0) MMOL/L Chloride 106 (98-107) mmol/L Carbon Dioxide 26 (22-30) mmol/L Anion Gap 14 (10-20) BUN 27 H (9-20) mg/dl Creatinine 1.4 (0.8-1.5) mg/dl Est GFR ( Amer) 59 Est GFR (Non-Af Amer) 49 Random Glucose 112 H (75-110) mg/dL Calcium 9.0 (8.4-10.2) mg/dL Total Bilirubin 0.5 (0.2-1.3) mg/dl AST 18 (17-59) U/L ALT 22 (21-72) U/L Alkaline Phosphatase 75 (38-126) U/L Total Protein 6.6 (6.3-8.2) G/DL Albumin 3.1 L (3.5-5.0) g/dL Globulin 3.5 (2.2-3.9) gm/dL Albumin/Globulin Ratio 0.9 L (1.0-2.1) Laboratory Results - last 24 hr 04/23/18 04/23/18 04:20 07:58 WBC 9.5 RBC 4.94 Hgb 14.5 Hct 44.4 MCV 90.0 D MCH 29.3 MCHC 32.6 L RDW 15.6 H Plt Count 237 MPV 8.9 Neut % (Auto) 81.7 H Lymph % (Auto) 8.8 L [place] % (Auto) 8.3 Eos % (Auto) 0.1 Baso % (Auto) 1.1 Neut # (Auto) 7.8 H Lymph # (Auto) 0.8 L [place] # (Auto) 0.8 Eos # (Auto) 0.0 Baso # (Auto) 0.1 Sodium 142 Potassium 4.2 Chloride 106 Carbon Dioxide 26 Anion Gap 14 BUN 27 H Creatinine 1.4 Est GFR ( Amer) 59 Est GFR (Non-Af Amer) 49 Random Glucose 112 H Calcium 9.0 Total Bilirubin 0.5 AST 18 ALT 22 Alkaline Phosphatase 75 Total Protein 6.6 Albumin 3.1 L Globulin 3.5 Albumin/Globulin Ratio 0.9 L Fingerstick Blood Sugar Results: 106 Critical Care Progress Note - Nutrition Nutrition: Nutrition Category Date Time Status Heart Healthy Diet [DIET] Diets 04/21/18 Dinner Active <Homero Fung - Last Filed: 04/23/18 14:12> CCU Subjective - Physician Review Subjective (Free Text): Attestation: Patient seen and examined at the bedside with Resident Dr. Kevin Hatch; and I agree with his outline of plans and management documented above and below, reflecting my review of all applicable clinical data, and participation in the care of the patient throughout the day in ICU; today, April 23, 2018.
[2018-04-23] MEDS: Oxycodone/Acetaminophen 5/325 mg Tab PO PRN ×3 (11:02→21:17)
--- NOTE | 2018-04-23 12:01 | CP.PCM.PN ---
Subjective - Date & Time of Evaluation Date of Evaluation: 04/23/18 Time of Evaluation: 11:59 - Subjective Subjective: Neurology Consultation Follow-Up Note: Mr. Chun was evaluated this morning in the ICU havign breakfast. He is POD#2 bilateral gali hole surgical intervention, evacuation of subdural hematoma and 2 cranial drains placed. Today he is still complaining of a headache and pain to the surgical site. Neurosurgery saw him earlier this morning and removed the 2 cranial drains and placed sutures to each site. He denies dizziness, visual changes, chest pain, palpitations, shortness of breath, n/v/d. No acute overnight events; chart reviewed. Objective - Vital Signs/Intake and Output Vital Signs (last 24 hours): Temp Pulse Resp BP Pulse Ox 97.9 F 55 L 18 161/96 H 96 04/23/18 08:00 04/23/18 10:00 04/23/18 10:00 04/23/18 10:00 04/23/18 10:00 Intake and Output: 04/23/18 04/23/18 06:59 18:59 Intake Total 365 200 Output Total 150 360 Balance 215 -160 - Medications Medications: Current Medications Acetaminophen (Tylenol 325mg Tab) 650 mg PO Q6 PRN PRN Reason: Pain, Mild (1-3) Acetaminophen/Codeine Phosphate (Tylenol/Codeine 300 Mg/30 Mg) 1 tab PO Q4 PRN PRN Reason: Pain, moderate (4-7) Amlodipine Besylate (Norvasc) 2.5 mg PO DAILY [facility] Atorvastatin Calcium (Lipitor) 10 mg PO HS JAMES Last Admin: 04/22/18 21:21 Dose: 10 mg Bethanechol Chloride (Urecholine) 25 mg PO TID JAMES Last Admin: 04/23/18 10:58 Dose: 25 mg Bethanechol Chloride (Urecholine) 50 mg PO HS JAMES Last Admin: 04/22/18 21:20 Dose: 50 mg Clonazepam (Klonopin) 0.5 mg PO DAILY PRN PRN Reason: Anxiety Last Admin: 04/20/18 16:16 Dose: 0.5 mg Hydralazine HCl (Apresoline) 10 mg PO Q6 [facility] Ceftriaxone Sodium 1 gm/ (Sodium Chloride) 100 mls @ 100 mls/hr IVPB DAILY JAMES; Protocol Last Admin: 04/23/18 10:57 Dose: 100 mls/hr Metoprolol Tartrate (Lopressor) 12.5 mg PO Q12 [facility] Oxycodone/Acetaminophen (Percocet 5/325 Mg Tab) 1 tab PO Q4 PRN PRN Reason: Pain, severe (8-10) Stop: 04/24/18 16:17 Last Admin: 04/23/18 11:02 Dose: 1 tab Sevelamer Carbonate (Renvela) 800 mg PO TID [facility] Last Admin: 04/23/18 10:56 Dose: 800 mg Sodium Bicarbonate (Sodium Bicarbonate Tab) 650 mg PO Q12 [facility] Last Admin: 04/23/18 10:57 Dose: 650 mg Tamsulosin HCl (Flomax) 0.4 mg PO HS [facility] Last Admin: 04/22/18 21:21 Dose: 0.4 mg Temazepam (Restoril) 15 mg PO HS PRN PRN Reason: Sleep Last Admin: 04/19/18 23:11 Dose: 15 mg Valproate Sodium (Depakene Oral Soln) 500 mg PO BID [facility] Last Admin: 04/23/18 10:44 Dose: 500 mg - Labs Labs: 04/23/18 07:58 04/23/18 04:20 PT 13.0 Seconds (9.8-13.1) 04/21/18 04:50 INR 1.1 04/21/18 04:50 APTT 34.3 Seconds (25.6-37.1) 04/21/18 04:50 - Constitutional Appears: Well, Non-toxic, No Acute Distress - Head Exam Head Exam: NORMOCEPHALIC Additional comments: surgical sites noted b/l. Drains removed. - Eye Exam Eye Exam: EOMI, Normal appearance, PERRL Pupil Exam: NORMAL ACCOMODATION, PERRL - ENT Exam ENT Exam: Mucous Membranes Moist - Neck Exam Neck Exam: Full ROM, Normal Inspection - Respiratory Exam Respiratory Exam: NORMAL BREATHING PATTERN - Extremities Exam Extremities Exam: Full ROM, Normal Inspection. absent: Calf Tenderness, Pedal Edema - Neurological Exam Neurological Exam: Alert, Awake, CN II-XII Intact, Oriented x3, Reflexes Normal Neuro motor strength exam: Left Upper Extremity: 5 (hair spring winder 5/5), Right Upper Extremity: 5 (hair spring winder 5/5), Left Lower Extremity: 5, Right Lower Extremity: 5 Additional comments: Speech is clear and fluid; no slurring No facial asymmetry Sensation equal and intact b/l Fine motor intact; no dysmetria; no ataxia Gait not assessed. - Psychiatric Exam Psychiatric exam: Normal Affect, Normal Mood - Skin Skin Exam: Normal Color Assessment and Plan (1) Subdural hematoma Assessment & Plan: Imaging: -CT Head (04/22/18): Status post evacuation of bilateral extra-axial fluid collections. No appreciable, residual collection on the right. There is residual fluid in the extra-axial space on the left. Greater than expected air within the calvarium. This has resulted in effacement of cortical sulci. No midline shift identified nor is there evidence of herniation. -CT Head (04/16/18): Bilateral cerebral convexity acute or subacute subdural hematoma slightly larger on the right and slightly higher density on the left. The possibility of acute on subacute or chronic hemorrhage cannot be excluded. Mild mass effect on the brain slightly more on the right. No evidence of significant midline shift. -CT Head (04/17/18): Stable bilateral subacute subdural hematomata remaining somewhat larger in volume at the right when compared to the left. No definite acute hemorrhage with left subdural hematoma somewhat more heterogeneous in density than the right once again. No definite significant midline shift appreciable. Basilar cisterns remain prominent. Likely mass effect effaces cerebral vertex sulci mildly once again. Diffuse cerebral atrophy reiterated as well as limited chronic microangiopathy. No acute parenchymal findings intrinsically. -Head and Neck MRA (04/17/18): unremarkable -ECHO w/Bubble done: see official report. Mr. Chun is doing generally well post-op and has no neurological deficits. -Management post-op per Neurosurgical team. -Continue afib and BP control per cardiology recs. -Continue seizure precautions. -Notify neuro team of any acute changes. -Continue Valproic Acid 500 mg PO BID for prevention of seizures post-craniotomy while in the hospital and as outpatient. Mr. Chun can follow up with Dr. Downs in the office within 1 month to discuss continuation of Depakote chcf. We will sign off at this time. Please reconsult prn. Case discussed with Dr. Downs Thank you for this consult. Status: Acute
--- NOTE | 2018-04-23 13:15 | CP.PCM.PN ---
Subjective - Date & Time of Evaluation Date of Evaluation: 04/23/18 Time of Evaluation: 13:14 - Subjective Subjective: a a ox3 c/o bernal ct good post op result has intracarial air-expected drains d/deepa can get oob move to floor advance activities with goal of d/c as soon as otherwise medically clear will f/u in office post d/c Objective - Vital Signs/Intake and Output Vital Signs (last 24 hours): Temp Pulse Resp BP Pulse Ox 98.0 F 54 L 18 160/92 H 94 L 04/23/18 12:00 04/23/18 12:49 04/23/18 12:00 04/23/18 12:49 04/23/18 12:00 Intake and Output: 04/23/18 04/23/18 06:59 18:59 Intake Total 365 300 Output Total 150 360 Balance 215 -60 - Medications Medications: Current Medications Acetaminophen (Tylenol 325mg Tab) 650 mg PO Q6 PRN PRN Reason: Pain, Mild (1-3) Acetaminophen/Codeine Phosphate (Tylenol/Codeine 300 Mg/30 Mg) 1 tab PO Q4 PRN PRN Reason: Pain, moderate (4-7) Amlodipine Besylate (Norvasc) 2.5 mg PO DAILY [facility] Last Admin: 04/23/18 12:49 Dose: 2.5 mg Atorvastatin Calcium (Lipitor) 10 mg PO HS [facility] Last Admin: 04/22/18 21:21 Dose: 10 mg Bethanechol Chloride (Urecholine) 25 mg PO TID [facility] Last Admin: 04/23/18 12:51 Dose: 25 mg Bethanechol Chloride (Urecholine) 50 mg PO HS [facility] Last Admin: 04/22/18 21:20 Dose: 50 mg Clonazepam (Klonopin) 0.5 mg PO DAILY PRN PRN Reason: Anxiety Last Admin: 04/20/18 16:16 Dose: 0.5 mg Hydralazine HCl (Apresoline) 10 mg PO Q6 [facility] Ceftriaxone Sodium 1 gm/ (Sodium Chloride) 100 mls @ 100 mls/hr IVPB DAILY [facility]; Protocol Last Admin: 04/23/18 10:57 Dose: 100 mls/hr Metoprolol Tartrate (Lopressor) 12.5 mg PO Q12 [facility] Oxycodone/Acetaminophen (Percocet 5/325 Mg Tab) 1 tab PO Q4 PRN PRN Reason: Pain, severe (8-10) Stop: 04/24/18 16:17 Last Admin: 04/23/18 11:02 Dose: 1 tab Sevelamer Carbonate (Renvela) 800 mg PO TID [facility] Last Admin: 04/23/18 12:50 Dose: 800 mg Sodium Bicarbonate (Sodium Bicarbonate Tab) 650 mg PO Q12 [facility] Last Admin: 04/23/18 10:57 Dose: 650 mg Tamsulosin HCl (Flomax) 0.4 mg PO HS [facility] Last Admin: 04/22/18 21:21 Dose: 0.4 mg Temazepam (Restoril) 15 mg PO HS PRN PRN Reason: Sleep Last Admin: 04/19/18 23:11 Dose: 15 mg Valproate Sodium (Depakene Oral Soln) 500 mg PO BID [facility] Last Admin: 04/23/18 10:44 Dose: 500 mg - Labs Labs: 04/23/18 07:58 04/23/18 04:20 PT 13.0 Seconds (9.8-13.1) 04/21/18 04:50 INR 1.1 04/21/18 04:50 APTT 34.3 Seconds (25.6-37.1) 04/21/18 04:50
--- NOTE | 2018-04-23 14:42 | CP.PCM.PN ---
Subjective - Date & Time of Evaluation Date of Evaluation: 04/23/18 Time of Evaluation: 07:30 - Subjective Subjective: Pt seen and examined at bedside. Reports frontal headache rated 8/10. Bilateral drains removed. Pt denies focal deficits or change in vision. Pt tolerating PO diet. Remains afebrile. Objective - Vital Signs/Intake and Output Vital Signs (last 24 hours): Temp Pulse Resp BP Pulse Ox 98.0 F 53 L 21 148/94 H 96 04/23/18 12:00 04/23/18 14:00 04/23/18 14:00 04/23/18 14:00 04/23/18 14:00 Intake and Output: 04/23/18 04/23/18 06:59 18:59 Intake Total 365 500 Output Total 150 1060 Balance 215 -560 - Medications Medications: Current Medications Acetaminophen (Tylenol 325mg Tab) 650 mg PO Q6 PRN PRN Reason: Pain, Mild (1-3) Acetaminophen/Codeine Phosphate (Tylenol/Codeine 300 Mg/30 Mg) 1 tab PO Q4 PRN PRN Reason: Pain, moderate (4-7) Amlodipine Besylate (Norvasc) 2.5 mg PO DAILY [facility] Last Admin: 04/23/18 12:49 Dose: 2.5 mg Atorvastatin Calcium (Lipitor) 10 mg PO HS [facility] Last Admin: 04/22/18 21:21 Dose: 10 mg Bethanechol Chloride (Urecholine) 25 mg PO TID [facility] Last Admin: 04/23/18 12:51 Dose: 25 mg Bethanechol Chloride (Urecholine) 50 mg PO HS [facility] Last Admin: 04/22/18 21:20 Dose: 50 mg Clonazepam (Klonopin) 0.5 mg PO DAILY PRN PRN Reason: Anxiety Last Admin: 04/20/18 16:16 Dose: 0.5 mg Hydralazine HCl (Apresoline) 10 mg PO Q6 [facility] Ceftriaxone Sodium 1 gm/ (Sodium Chloride) 100 mls @ 100 mls/hr IVPB DAILY [facility]; Protocol Last Admin: 04/23/18 10:57 Dose: 100 mls/hr Metoprolol Tartrate (Lopressor) 12.5 mg PO Q12 [facility] Oxycodone/Acetaminophen (Percocet 5/325 Mg Tab) 1 tab PO Q4 PRN PRN Reason: Pain, severe (8-10) Stop: 04/24/18 16:17 Last Admin: 04/23/18 11:02 Dose: 1 tab Sevelamer Carbonate (Renvela) 800 mg PO TID [facility] Last Admin: 04/23/18 12:50 Dose: 800 mg Sodium Bicarbonate (Sodium Bicarbonate Tab) 650 mg PO Q12 [facility] Last Admin: 04/23/18 10:57 Dose: 650 mg Tamsulosin HCl (Flomax) 0.4 mg PO HS [facility] Last Admin: 04/22/18 21:21 Dose: 0.4 mg Temazepam (Restoril) 15 mg PO HS PRN PRN Reason: Sleep Last Admin: 04/19/18 23:11 Dose: 15 mg Valproate Sodium (Depakene Oral Soln) 500 mg PO BID [facility] Last Admin: 04/23/18 10:44 Dose: 500 mg - Labs Labs: 04/23/18 07:58 04/23/18 04:20 PT 13.0 Seconds (9.8-13.1) 04/21/18 04:50 INR 1.1 04/21/18 04:50 APTT 34.3 Seconds (25.6-37.1) 04/21/18 04:50 - Constitutional Appears: Non-toxic, In Acute Distress (Headache) - Eye Exam Eye Exam: EOMI - Neck Exam Neck Exam: Full ROM - Respiratory Exam Respiratory Exam: Clear to Ausculation Bilateral, NORMAL BREATHING PATTERN. absent: Wheezes - Cardiovascular Exam Cardiovascular Exam: REGULAR RHYTHM, +S1, +S2 - GI/Abdominal Exam GI & Abdominal Exam: Soft, Normal Bowel Sounds. absent: Tenderness - Extremities Exam Extremities Exam: absent: Calf Tenderness - Neurological Exam Neurological Exam: Alert, Awake, Oriented x3 - Psychiatric Exam Psychiatric exam: Normal Affect, Normal Mood Assessment and Plan - Assessment and Plan (Free Text) Assessment: 83 y/o male w/ pmhx of HTN, CKD III, DLD, BPH admitted for bilateral subdural hematomas. Plan: POD2: Bilateral craniotomy, evacuation of subdural hematoma; Dr. Lundberg -Head and Neck MRAs unremarkable -CT head 04/22: status post evacuation of bl extra-axial fluid collections. No appreciable, residual collection on the right. there is residual fluid in the extra-axial space on the L. Greater than expected air within the calvarium. this has resulted in effacement of the cortical sulci. no midline shift ident ified nor is ther evidence of herniation. -CT head 04/17: stable bilateral subacute subdural hematomata remaining somewhat larger in volume R>L. No definite aute hemorrhage w/ heterogenous density L>R. No definite significant midline shift appreciable. Basilar cisterns remain prominent. Likely mass effect effaces cerebral vertex sulci mildly again -CT head 04/16: sig for Bilateral cerebral subacute subdural hematoma slightly larger on the right and slightly higher density on the left. Mild mass effect on the brain slightly more on the right. No evidence of significant midline shift. -EKG: NSR with rate of 60-80's on side laster Bilateral subdural hematomas -transfer to med/surg Spontaneous subacute/acute hematomas NIHSS 0, no residual weakness Neurosurgery: Dr. Angelo neuro checks q1Hr, keep head elevated; POD2: Bilateral craniotomy, evacuation of subdural hematoma Advance activities with goal of D/C. to f/u op maintain BP: systolic <140 neuro: Depakote 500 mg BID for seizure prophylaxis Pain management: Acetaminophen/codeine, percocet Severely dilated aorta Echo: 04/17/2018 CT chest 5.5 x 5.4 cm ascending aortic aneurysm. Cardiology: Dr. Arthur: Continue Lipitor 10 mg qd, Trandate 20 mg IV q 3hr PRN. Cardiothoracic Surgery: Dr. Rowe: recommend CT angio of chest with [place] protocol prior to IV contrast. Pt declined further workup for dilated aorta HTN chronic maintain BP: systolic <140 Start hydralazine 10 mg PO Q6, Amlodipine 2.5 mg PO qD, Enalapril: 2.5 mg Decreased Metoprolol to 12.5 mg BID Held aspirin CKD stage III chronic Continue home meds Dyslipidemia Continue Atorvastatin BPH chronic status post TURP Continue home meds Urinary retention: Bladder scan had 300+ mls 04/22/2018 -Continue bladder training -Will consider removing kumar, soon DVT prophylaxis: held anticoag 2/2 recent surgery SCDs PT/OT: Deconditioning s/p craniotomy with evacuation of hematomas Case dw Dr. Mc Reid MD PGY2
[2018-04-23 14:43] LABS: URINE BILIRUBIN NEGATIVE (NEGATIVE); URINE BLOOD MODERATE (NEGATIVE); URINE CLARITY SLIGHTY-CLOUDY (Clear); URINE COLOR YELLOW (YELLOW); URINE GLUCOSE (UA) NEG (NEGATIVE); URINE LEUKOCYTE ESTERASE NEG Leu/uL (Negative); URINE PROTEIN 100 mg/dL (NEGATIVE); URINE UROBILINOGEN 0.2-1.0 mg/dL (0.2-1.0)
--- NOTE | 2018-04-23 20:14 | PN ---
DATE: 04/23/2018 SUBJECTIVE: The patient is experiencing headache. He also experienced another episode of urinary retention and required indwelling Friend catheter. No reported arrhythmia. Postoperative EKG revealed sinus bradycardia, rate of 57 with old inferior infarct. Head CT scan done yesterday revealed status post evacuation of bilateral extra-axial fluid collection, no appreciable residual collection on the right. There is residual fluid in the extra-axial space on the left greater than expected within calvarium. No midline shift. ASSESSMENT: 1. Status post evacuation of bilateral subdural hematoma. 2. 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 3. Mild sinus bradycardia. 4. Systemic hypertension. 5. Chronic renal insufficiency. 6. Ascending thoracic aortic aneurysm. RECOMMENDATIONS: I agree with initiating hydralazine 10 mg every 6 hours, continue IV Rocephin at 1 g daily, Lipitor at 10 mg once a day, and agree with reducing Lopressor to 12.5 mg twice a day. Norvasc was started at 2.5 mg daily, which I do not recommend any increase of the dose in view of thoracic aortic aneurysm. Yobani Arthur MD
[2018-04-23] MEDS: Bethanechol 50 MG TAB PO SCH (21:13)
[2018-04-24] MEDS: Oxycodone/Acetaminophen 5/325 mg Tab PO PRN ×2 (01:09→12:41)
[2018-04-24 05:53] LABS: HEMOGLOBIN 13.8 g/dL (12.0-18.0); MEAN CELL VOLUME 88.2 fl (80.0-94.0); MEAN CORPUSCULAR HEMOGLOBIN 29.4 pg (27.0-31.0); MEAN CORPUSCULAR HGB CONC 33.3 g/dL (33.0-37.0); RBC 4.71 Mil/uL (4.40-5.90); RED CELL DISTRIBUTION WIDTH 15.8 % (11.5-14.5); WHITE BLOOD COUNT 7.8 K/uL (4.8-10.8)
--- NOTE | 2018-04-24 08:39 | CP.PCM.PN ---
Subjective - Date & Time of Evaluation Date of Evaluation: 04/24/18 Time of Evaluation: 07:45 - Subjective Subjective: Pt seen and examined at bedside. Reports improvement in headache rated 4/10. Pt denies acute overnight events. Tolerating PO diet. Had bowel movement yesterday. Objective - Vital Signs/Intake and Output Vital Signs (last 24 hours): Temp Pulse Resp BP Pulse Ox 97.3 F L 48 L 17 132/77 98 04/24/18 08:00 04/24/18 08:00 04/24/18 08:00 04/24/18 08:00 04/24/18 08:00 Intake and Output: 04/24/18 04/24/18 06:59 18:59 Intake Total 170 Output Total 750 Balance -580 - Medications Medications: Current Medications Acetaminophen (Tylenol 325mg Tab) 650 mg PO Q6 PRN PRN Reason: Pain, Mild (1-3) Acetaminophen/Codeine Phosphate (Tylenol/Codeine 300 Mg/30 Mg) 1 tab PO Q4 PRN PRN Reason: Pain, moderate (4-7) Last Admin: 04/23/18 18:35 Dose: 1 tab Amlodipine Besylate (Norvasc) 2.5 mg PO DAILY [facility] Last Admin: 04/23/18 12:49 Dose: 2.5 mg Atorvastatin Calcium (Lipitor) 10 mg PO HS [facility] Last Admin: 04/23/18 21:13 Dose: 10 mg Bethanechol Chloride (Urecholine) 25 mg PO TID [facility] Last Admin: 04/23/18 17:52 Dose: 25 mg Bethanechol Chloride (Urecholine) 50 mg PO HS [facility] Last Admin: 04/23/18 21:13 Dose: 50 mg Clonazepam (Klonopin) 0.5 mg PO DAILY PRN PRN Reason: Anxiety Last Admin: 04/20/18 16:16 Dose: 0.5 mg Enalapril Maleate (Vasotec) 2.5 mg PO DAILY [facility] Hydralazine HCl (Apresoline) 10 mg PO Q6 [facility] Last Admin: 04/24/18 05:05 Dose: 10 mg Ceftriaxone Sodium 1 gm/ (Sodium Chloride) 100 mls @ 100 mls/hr IVPB DAILY [facility]; Protocol Last Admin: 04/23/18 10:57 Dose: 100 mls/hr Metoprolol Tartrate (Lopressor) 12.5 mg PO Q12 [facility] Last Admin: 04/23/18 21:16 Dose: Not Given Oxycodone/Acetaminophen (Percocet 5/325 Mg Tab) 1 tab PO Q4 PRN PRN Reason: Pain, severe (8-10) Stop: 04/24/18 16:17 Last Admin: 04/24/18 01:09 Dose: 1 tab Sevelamer Carbonate (Renvela) 800 mg PO TID [facility] Last Admin: 04/23/18 17:52 Dose: 800 mg Sodium Bicarbonate (Sodium Bicarbonate Tab) 650 mg PO Q12 [facility] Last Admin: 04/23/18 21:13 Dose: 650 mg Tamsulosin HCl (Flomax) 0.4 mg PO HS [facility] Last Admin: 04/23/18 21:13 Dose: 0.4 mg Temazepam (Restoril) 15 mg PO HS PRN PRN Reason: Sleep Last Admin: 04/19/18 23:11 Dose: 15 mg Valproate Sodium (Depakene Oral Soln) 500 mg PO BID [facility] Last Admin: 04/23/18 17:51 Dose: 500 mg - Labs Labs: 04/24/18 05:00 04/24/18 04:35 PT 13.0 Seconds (9.8-13.1) 04/21/18 04:50 INR 1.1 04/21/18 04:50 APTT 34.3 Seconds (25.6-37.1) 04/21/18 04:50 Assessment and Plan - Assessment and Plan (Free Text) Assessment: 83 y/o male w/ pmhx of HTN, CKD III, DLD, BPH admitted for bilateral subdural hematomas. Plan: POD3: Bilateral craniotomy, evacuation of subdural hematoma; Dr. Lundberg -Head and Neck MRAs unremarkable -CT head 04/22: status post evacuation of bl extra-axial fluid collections. No appreciable, residual collection on the right. there is residual fluid in the extra-axial space on the L. Greater than expected air within the calvarium. this has resulted in effacement of the cortical sulci. no midline shift identified nor is ther evidence of herniation. -CT head 04/17: stable bilateral subacute subdural hematomata remaining somewhat larger in volume R>L. No definite aute hemorrhage w/ heterogenous density L>R. No definite significant midline shift appreciable. Basilar cisterns remain prominent. Likely mass effect effaces cerebral vertex sulci mildly again -CT head 04/16: sig for Bilateral cerebral subacute subdural hematoma slightly larger on the right and slightly higher density on the left. Mild mass effect on the brain slightly more on the right. No evidence of significant midline shift. -EKG: NSR with rate of 60-80's on lock master Bilateral subdural hematomas -transfer to med/surg Spontaneous subacute/acute hematomas NIHSS 0, no residual weakness Neurosurgery: Dr. Angelo neuro checks q1Hr, keep head elevated; POD3: Bilateral craniotomy, evacuation of subdural hematoma Advance activities with goal of D/C. to f/u op maintain BP: systolic <140 neuro: Depakote 500 mg BID for seizure prophylaxis Pain management: Acetaminophen/codeine, percocet Severely dilated aorta Echo: 04/17/2018 CT chest 5.5 x 5.4 cm ascending aortic aneurysm. Cardiology: Dr. Arthur: Continue Lipitor 10 mg qd, Trandate 20 mg IV q 3hr PRN. Cardiothoracic Surgery: Dr. Rowe: recommend CT angio of chest with [place] protocol prior to IV contrast. Pt declined further workup for dilated aorta HTN chronic maintain BP: systolic <140 Start hydralazine 10 mg PO Q6, Amlodipine 2.5 mg PO qD (do not increase per Dr. Ash), Enalapril: 2.5 mg Decreased Metoprolol to 12.5 mg BID Held aspirin CKD stage III chronic Continue home meds Dyslipidemia Continue Atorvastatin BPH chronic status post TURP Continue home meds Urinary retention: Bladder scan had 300+ mls 04/22/2018 -Continue bladder training -Will consider removing kumar, soon DVT prophylaxis: held anticoag 2/2 recent surgery SCDs PT/OT: Deconditioning s/p craniotomy with evacuation of hematomas Case dw Dr. Mc Reid MD PGY2
[2018-04-24] MEDS: Valproic Acid 250 mg/5 ml UD Cup PO SCH (09:05)
[2018-04-24 12:18] VITALS: O2SAT 96
--- NOTE | 2018-04-24 15:39 | CP.PCM.DIS ---
Provider - Provider Date of Admission: 04/16/18 17:03 Attending physician: Rosario Hargrove MD Consults: 04/16/18 16:21 Stroke Team Consult Stat Comment: Consulting Provider: Neurohospitalist Consulting Physician: NEUROHOMAHENDRA Neurohospitalist for Consult: Maximiliano Weaver Neurohospitalist for Consult: Savanna Downs Reason for Consult: aphasia resolved 04/17/18 18:47 Neurology Consult Routine Comment: aphasia Consulting Provider: Savanna Downs Consulting Physician: Savanna Downs Reason for Consult: aphasia 04/20/18 09:34 Cardiology Consult Routine Comment: Consulting Provider: Yobani Arthur Consulting Physician: Yobani Arthur Reason for Consult: Dilated ascending aorta. surgery clearance planned for 04/21/2018 04/20/18 17:58 Physician Consult Routine Comment: Consulting Provider: Danilo Rowe Consulting Physician: Danilo Rowe Reason for Consult: Ascending Aortic Aneurysm Time Spent in preparation of Discharge (in minutes): 30 Hospital Course - Lab Results Lab Results: Micro Results 04/16/18 05:00 Naris MRSA Culture (Admit) - Final MRSA NOT DETECTED Most Recent Lab Values WBC 7.8 K/uL (4.8-10.8) 04/24/18 05:00 RBC 4.71 Mil/uL (4.40-5.90) 04/24/18 05:00 Hgb 13.8 g/dL (12.0-18.0) 04/24/18 05:00 Hct 41.5 % (35.0-51.0) 04/24/18 05:00 MCV 88.2 fl (80.0-94.0) 04/24/18 05:00 MCH 29.4 pg (27.0-31.0) 04/24/18 05:00 MCHC 33.3 g/dL (33.0-37.0) 04/24/18 05:00 RDW 15.8 % (11.5-14.5) H 04/24/18 05:00 Plt Count 206 K/uL (130-400) 04/24/18 05:00 MPV 8.9 fl (7.2-11.7) 04/23/18 07:58 Neut % (Auto) 81.7 % (50.0-75.0) H 04/23/18 07:58 Lymph % (Auto) 8.8 % (20.0-40.0) L 04/23/18 07:58 Howard % (Auto) 8.3 % (0.0-10.0) 04/23/18 07:58 Eos % (Auto) 0.1 % (0.0-4.0) 04/23/18 07:58 Baso % (Auto) 1.1 % (0.0-2.0) 04/23/18 07:58 Neut # (Auto) 7.8 K/uL (1.8-7.0) H 04/23/18 07:58 Lymph # (Auto) 0.8 K/uL (1.0-4.3) L 04/23/18 07:58 Howard # (Auto) 0.8 K/uL (0.0-0.8) 04/23/18 07:58 Eos # (Auto) 0.0 K/uL (0.0-0.7) 04/23/18 07:58 Baso # (Auto) 0.1 K/uL (0.0-0.2) 04/23/18 07:58 Neutrophils % (Manual) 89 % (42-75) H 04/22/18 04:30 Band Neutrophils % 1 % (0-2) 04/22/18 04:30 Lymphocytes % (Manual) 5 % (20-50) L 04/22/18 04:30 Monocytes % (Manual) 4 % (0-10) 04/22/18 04:30 Basophils % (Manual) 1 % (0-2) 04/22/18 04:30 Platelet Estimate Normal (NORMAL) 04/22/18 04:30 PT 13.0 Seconds (9.8-13.1) 04/21/18 04:50 INR 1.1 04/21/18 04:50 APTT 34.3 Seconds (25.6-37.1) 04/21/18 04:50 Sodium 145 mmol/l (132-148) 04/24/18 04:35 Potassium 3.9 MMOL/L (3.6-5.0) 04/24/18 04:35 Chloride 107 mmol/L (98-107) 04/24/18 04:35 Carbon Dioxide 29 mmol/L (22-30) 04/24/18 04:35 Anion Gap 13 (10-20) 04/24/18 04:35 BUN 27 mg/dl (9-20) H 04/24/18 04:35 Creatinine 1.4 mg/dl (0.8-1.5) 04/24/18 04:35 Est GFR ( Amer) 59 04/24/18 04:35 Est GFR (Non-Af Amer) 49 04/24/18 04:35 POC Glucose (mg/dL) 106 mg/dL (65-110) 04/16/18 16:18 Random Glucose 95 mg/dL (75-110) 04/24/18 04:35 Hemoglobin A1c 5.1 % (4.2-6.5) 04/16/18 17:03 Calcium 9.0 mg/dL (8.4-10.2) 04/24/18 04:35 Magnesium 2.0 MG/DL (1.6-2.3) 04/20/18 04:50 Total Bilirubin 0.5 mg/dl (0.2-1.3) 04/23/18 04:20 AST 18 U/L (17-59) 04/23/18 04:20 ALT 22 U/L (21-72) 04/23/18 04:20 Alkaline Phosphatase 75 U/L (38-126) 04/23/18 04:20 Troponin I < 0.0120 ng/mL (0.00-0.120) 04/16/18 16:30 Total Protein 6.6 G/DL (6.3-8.2) 04/23/18 04:20 Albumin 3.1 g/dL (3.5-5.0) L 04/23/18 04:20 Globulin 3.5 gm/dL (2.2-3.9) 04/23/18 04:20 Albumin/Globulin Ratio 0.9 (1.0-2.1) L 04/23/18 04:20 Triglycerides 72 mg/DL (0-149) 04/16/18 16:30 Cholesterol 108 mg/dL (0-199) 04/16/18 16:30 LDL Cholesterol Direct 63 mg/dL (0-129) 04/16/18 16:30 HDL Cholesterol 37 MG/DL (30-70) 04/16/18 16:30 Urine Color Yellow (YELLOW) 04/23/18 14:24 Urine Clarity Slighty-cloudy (Clear) 04/23/18 14:24 Urine pH 6.0 (5.0-8.0) 04/23/18 14:24 Ur Specific [place] 1.020 (1.003-1.030) 04/23/18 14:24 Urine Protein 100 mg/dL (NEGATIVE) 04/23/18 14:24 Urine Glucose (UA) Neg mg/dL (NEGATIVE) 04/23/18 14:24 Urine Ketones Negative mg/dL (NEGATIVE) 04/23/18 14:24 Urine Blood Moderate (NEGATIVE) 04/23/18 14:24 Urine Nitrate Negative (NEGATIVE) 04/23/18 14:24 Urine Bilirubin Negative (NEGATIVE) 04/23/18 14:24 Urine Urobilinogen 0.2-1.0 mg/dL (0.2-1.0) 04/23/18 14:24 Ur Leukocyte Esterase Neg [place]/uL (Negative) 04/23/18 14:24 Urine RBC (Auto) 105 /hpf (0-3) H 04/23/18 14:24 Urine Microscopic WBC 5 /hpf (0-5) 04/23/18 14:24 Blood Type O POSITIVE 04/21/18 11:10 Blood Type Confirm O POSITIVE 04/17/18 04:40 Antibody Screen Negative 04/21/18 11:10 Crossmatch See Detail 04/21/18 11:10 BBK History Checked Patient has bt 04/21/18 11:10 - Hospital Course Hospital Course: 83 y/o male w/ pmhx of HTN, CKD III, DLD, BPH admitted for bilateral subdural hematomas. POD2: Bilateral craniotomy, evacuation of subdural hematoma; Dr. Lundberg -Head and Neck MRAs unremarkable -CT head 04/22: status post evacuation of bl extra-axial fluid collections. No appreciable, residual collection on the right. there is residual fluid in the extra-axial space on the L. Greater than expected air within the calvarium. this has resulted in effacement of the cortical sulci. no midline shift identified nor is ther evidence of herniation. -CT head 04/17: stable bilateral subacute subdural hematomata remaining somewhat larger in volume R>L. No definite aute hemorrhage w/ heterogenous density L>R. No definite significant midline shift appreciable. Basilar cisterns remain prominent. Likely mass effect effaces cerebral vertex sulci mildly again -CT head 04/16: sig for Bilateral cerebral subacute subdural hematoma slightly larger on the right and slightly higher density on the left. Mild mass effect on the brain slightly more on the right. No evidence of significant midline shift. -EKG: NSR with rate of 60-80's on desk monitor -Echo: 04/17/2018 -CT chest 5.5 x 5.4 cm ascending aortic aneurysm. Bilateral subdural hematoma: s/p bl craniotomy and evacuation. Pt started on Depakote 500 mg BID per neurology for seizure prophylaxis; Pain management with percocet and acetaminophen Severely dilated aorta: found on ECHO; Cardiology: Dr. Arthur: Continue Lipitor 10 mg qd, Trandate 20 mg IV q 3hr PRN. Cardiothoracic Surgery: Dr. Rowe: recommend CT angio of chest with [place] protocol prior to IV contrast, however, pt declined further workup for dilated aorta. HTN: meds updated: hydralazine 10 mg PO Q6, Amlodipine 2.5 mg PO qD, Enalapril: 2.5 mg; Metoprolol to 12.5 mg BID; Per Dr. Arthur: due to aortic aneurysm, doesn't recommend increasing enalapril. Pt discharged to [facility] for further PT deconditioning. He lives alone. Case dw Dr. Mc Reid MD PGY2 Discharge Exam - Head Exam Head Exam: NORMOCEPHALIC Additional comments: S/P bilateral craniotomy. Wound vacs discontinued on post op day 1. - Eye Exam Eye Exam: EOMI - ENT Exam ENT Exam: Mucous Membranes Moist - Respiratory Exam Respiratory Exam: Clear to PA & Lateral, NORMAL BREATHING PATTERN, UNREMARKABLE. absent: Wheezes - Cardiovascular Exam Cardiovascular Exam: REGULAR RHYTHM, +S1, +S2 - GI/Abdominal Exam GI & Abdominal Exam: Normal Bowel Sounds, Soft. absent: Tenderness - Neurological Exam Neurological exam: Alert, CN II-XII Intact, Oriented x3 - Psychiatric Exam Psychiatric exam: Normal Affect, Normal Mood Discharge Plan - Discharge Medications Prescriptions: Acetaminophen [Tylenol 325mg tab] 650 mg PO Q6 PRN #60 tab PRN Reason: Pain, Mild (1-3) amLODIPine [Norvasc] 5 mg PO DAILY #30 tab Atorvastatin [Lipitor] 10 mg PO HS #30 tab Bethanechol [Urecholine] 25 mg PO TID #90 tab Bethanechol [Urecholine] 50 mg PO HS #30 tab clonazePAM [Klonopin] 0.5 mg PO DAILY PRN #30 tab PRN Reason: Anxiety Enalapril Maleate [Vasotec] 2.5 mg PO DAILY #30 tab Febuxostat [Uloric] 80 mg PO DAILY #30 tablet Metoprolol Tartrate [Lopressor] 12.5 mg PO Q12 #60 tab Sevelamer Carbonate [Renvela] 800 mg PO TID #90 tab Sildenafil Citrate [Viagra] 25 mg PO HS #30 tablet Sodium Bicarbonate Tab 650 mg PO Q12 #60 tab Tamsulosin [Flomax] 0.4 mg PO HS #30 cap Valproic Acid Oral Soln [Depakene Oral Soln] 500 mg PO BID #60 cup - Follow Up Plan Condition: FAIR Disposition: OTHER INSTITUTION Instructions: DASH Diet, High Blood Pressure (DC), Subdural Hematoma (DC) Additional Instructions: To continue physical therapy in [facility].
[2018-04-24 16:12] VITALS: BP 129/61; PULSE 86; RESP 21; TEMP 98.6
--- NOTE | 2018-04-24 20:24 | PN ---
DATE: 04/24/2018 SUBJECTIVE: The patient is experiencing headache. He denies retrosternal chest pain or back pain. Recent ECG revealed mainly sinus bradycardia in the 50s, and the patient has been normotensive. PHYSICAL EXAMINATION: VITAL SIGNS: Blood pressure 129/61, heart rate 86, temperature 98.6, and respirations 21. HEENT: No pallor or icterus. NECK: No JVD. CHEST: Clear. HEART: S1 and S2 regular. ABDOMEN: Soft. EXTREMITIES: No edema. LABORATORY DATA: Recent hemoglobin and hematocrit 15.8 and 41.5. White count and platelet count are within normal limits. Today SMA-7: Sodium 145, potassium 3.5, chloride 107, CO2 of 29, glucose 95, BUN 27, creatinine 1.4. ASSESSMENT: 1. Status post evacuation of bilateral subdural hematoma. 2. Abnormal EKG with evidence of inferior infarct. 3. Mild sinus bradycardia. 4. Chronic renal insufficiency. 5. Systemic hypertension. 6. Ascending thoracic aortic aneurysm. RECOMMENDATIONS: Continue hydralazine 10 mg every 6 hours, IV Rocephin 1 g daily, Depakene 500 mg twice a day, Flomax 0.4 mg once a day, Lipitor 10 mg once a day, Lopressor 12.5 mg twice a day, hold for heart rate below 60. May discontinue Norvasc. Continue Vasotec at 2.5 mg daily. Upon discharge, the patient should have an appointment with Dr. Rowe at his office in [facility]. Yobani Arthur MD
== END 2018-04-24 16:00 | DRG 26 ==
LOC: H.ER 15:59 → H.ERHOLD 17:03 → H.ICU/CCU 20:31
PROVIDERS: ADMIT Hospitalist; ATTEND Hospitalist
PROC: 00C40ZZ Extirpation of Matter from Intracranial Subdural Space, Open Approach (ICD-10-PCS; principal; 2018-04-21 11:00)
DX: I62.02 Nontraumatic subacute subdural hemorrhage (principal); I97.191 Other postprocedural cardiac functional disturbances following other surgery; R00.1 Bradycardia, unspecified; R47.01 Aphasia; N18.3 Chronic kidney disease, stage 3 (moderate); I12.9 Hypertensive chronic kidney disease with stage 1 through stage 4 chronic kidney disease, or unspecified chronic kidney disease; E87.6 Hypokalemia; I48.91 Unspecified atrial fibrillation; I35.1 Nonrheumatic aortic (valve) insufficiency; I71.2 Thoracic aortic aneurysm, without rupture; R47.1 Dysarthria and anarthria; E03.9 Hypothyroidism, unspecified; E78.00 Pure hypercholesterolemia, unspecified; E78.5 Hyperlipidemia, unspecified; N40.1 Benign prostatic hyperplasia with lower urinary tract symptoms; R33.8 Other retention of urine; N13.9 Obstructive and reflux uropathy, unspecified; F41.9 Anxiety disorder, unspecified; Y83.8 Other surgical procedures as the cause of abnormal reaction of the patient, or of later complication, without mention of misadventure at the time of the procedure; R29.700 NIHSS score 0; Z85.820 Personal history of malignant melanoma of skin; Z96.642 Presence of left artificial hip joint; Z79.82 Long term (current) use of aspirin; I25.2 Old myocardial infarction

== ENCOUNTER 2018-04-24 13:28 | Inpatient (IN) | payer MEDICARE ==
[2018-04-24 16:17] VITALS: BMI 26.2
[2018-04-24] MEDS ORDERED: Acetaminophen-Codeine 300/30 mg Tab PO PRN (16:36)
[2018-04-24] MEDS ORDERED: Oxycodone/Acetaminophen 5/325 mg Tab PO PRN (16:36)
[2018-04-24] MEDS: Valproic Acid 250 mg/5 ml UD Cup PO SCH (17:45)
[2018-04-24] MEDS: Bethanechol 50 MG TAB PO SCH (21:16)
[2018-04-25 06:48] LABS: HEMOGLOBIN 13.6 g/dL (12.0-18.0); MEAN CELL VOLUME 87.9 fl (80.0-94.0); MEAN CORPUSCULAR HEMOGLOBIN 29.4 pg (27.0-31.0); MEAN CORPUSCULAR HGB CONC 33.4 g/dL (33.0-37.0); RBC 4.64 Mil/uL (4.40-5.90); RED CELL DISTRIBUTION WIDTH 15.7 % (11.5-14.5); WHITE BLOOD COUNT 6.7 K/uL (4.8-10.8)
[2018-04-25 07:05] LABS: BLOOD UREA NITROGEN 31 mg/dl (9-20); CALCIUM 8.8 mg/dL (8.4-10.2); GFR NON-AFRICAN AMERICAN 58
[2018-04-25] MEDS: Valproic Acid 250 mg/5 ml UD Cup PO SCH ×2 (08:29→17:16)
[2018-04-25] MEDS ORDERED: cefTRIAXone IV 1 gm in Dextros 50 ML BAG IVPB SCH (09:00)
--- NOTE | 2018-04-25 09:48 | CP.PCM.CON ---
History of Present Illness - History of Present Illness History of Present Illness: 83 year old male with bilateral subdural hematomas, with craniotomy and evacuation with PMH of HTN, CKD, BPH depression, anxiety and Left hip replacement, melanoma TURP, admitted for acute rehab Review of Systems - Musculoskeletal Musculoskeletal: Muscle Weakness - Neurological Neurological: Headaches Past Patient History - Past Medical History & Family History Past Medical History?: Yes - Past Social History Smoking Status: Never Smoked - CARDIAC Hx Hypercholesterolemia: Yes Hx Hypertension: Yes - PULMONARY Hx Respiratory Disorders: No - NEUROLOGICAL Hx Neurological Disorder: No - HEENT Hx HEENT Problems: Yes Other/Comment: near sighted, use to wear glasses - RENAL Hx Chronic Kidney Disease: Yes (stage 3 ) - ENDOCRINE/METABOLIC Hx Hypothyroidism: Yes - HEMATOLOGICAL/ONCOLOGICAL Hx AIDS: No Hx Hepatitis A: Yes Hx Human Immunodeficiency Virus (HIV): No - INTEGUMENTARY Hx Dermatological Problems: Yes Hx Melanoma: Yes (partial removal of melanoma on right cheek done on 04/14/18) - MUSCULOSKELETAL/RHEUMATOLOGICAL Hx Arthritis: Yes Hx Falls: No - GASTROINTESTINAL Hx Gastrointestinal Disorders: No - GENITOURINARY/GYNECOLOGICAL Hx Genitourinary Disorders: Yes Other/Comment: Obstructive uropathy. urogenic bladder. turp 5-7 years ago. pt unsure - PSYCHIATRIC Hx Anxiety: Yes Hx Depression: Yes Hx Substance Use: No - SURGICAL HISTORY Hx Surgeries: Yes Hx Musculoskeletal Surgery: Yes (left hip surgery 3 years ago) Other/Comment: TURP-5 to 7 yrs ago, pt not sure - ANESTHESIA Hx Anesthesia: Yes Hx Anesthesia Reactions: No Hx Malignant Hyperthermia: No Meds Allergies/Adverse Reactions: Allergies Allergy/AdvReac Type Severity Reaction Status Date / Time No Known Allergies Allergy Verified 04/24/18 16:16 - Medications Medications: Current Medications Acetaminophen (Tylenol 325mg Tab) 650 mg PO Q6 PRN PRN Reason: Pain, Mild (1-3) Last Admin: 04/25/18 01:53 Dose: 650 mg Acetaminophen/Codeine Phosphate (Tylenol/Codeine 300 Mg/30 Mg) 1 tab PO Q4H PRN PRN Reason: Pain, moderate (4-7) Amlodipine Besylate (Norvasc) 5 mg PO DAILY [facility] Last Admin: 04/25/18 08:30 Dose: 5 mg Atorvastatin Calcium (Lipitor) 10 mg PO HS [facility] Last Admin: 04/24/18 21:16 Dose: 10 mg Bethanechol Chloride (Urecholine) 25 mg PO TID [facility] Last Admin: 04/25/18 08:32 Dose: 25 mg Bethanechol Chloride (Urecholine) 50 mg PO HS [facility] Last Admin: 04/24/18 21:16 Dose: 50 mg Clonazepam (Klonopin) 0.5 mg PO DAILY PRN PRN Reason: Anxiety Enalapril Maleate (Vasotec) 2.5 mg PO DAILY [facility] Hydralazine HCl (Apresoline) 10 mg PO Q6 [facility] Last Admin: 04/25/18 05:26 Dose: 10 mg Ceftriaxone Sodium 1 gm/ (Sodium Chloride) 100 mls @ 100 mls/hr IVPB DAILY@0600 [facility] Last Admin: 04/25/18 05:38 Dose: 100 mls/hr Metoprolol Tartrate (Lopressor) 12.5 mg PO Q12 [facility] Last Admin: 04/25/18 08:30 Dose: 12.5 mg Oxycodone/Acetaminophen (Percocet 5/325 Mg Tab) 1 tab PO Q4 PRN PRN Reason: Pain, severe (8-10) Stop: 04/27/18 16:37 Sevelamer Carbonate (Renvela) 800 mg PO TID [facility] Last Admin: 04/25/18 08:31 Dose: 800 mg Sodium Bicarbonate (Sodium Bicarbonate Tab) 650 mg PO Q12 [facility] Last Admin: 04/25/18 08:31 Dose: 650 mg Tamsulosin HCl (Flomax) 0.4 mg PO HS [facility] Last Admin: 04/24/18 21:16 Dose: 0.4 mg Temazepam (Restoril) 15 mg PO HS PRN PRN Reason: Sleep Valproate Sodium (Depakene Oral Soln) 500 mg PO BID [facility] Last Admin: 04/25/18 08:29 Dose: 500 mg Physical Exam - Constitutional Appears: Well Additional comments: craniotomy surgical scars healing - Head Exam Head Exam: NORMAL INSPECTION Additional comments: incisional area healing - Eye Exam Eye Exam: EOMI, Normal appearance Pupil Exam: NORMAL ACCOMODATION, PERRL - ENT Exam ENT Exam: Mucous Membranes Moist - Neck Exam Neck exam: Positive for: Normal Inspection - Respiratory Exam Respiratory Exam: Clear to Auscultation Bilateral, NORMAL BREATHING PATTERN - Cardiovascular Exam Cardiovascular Exam: REGULAR RHYTHM - GI/Abdominal Exam GI & Abdominal Exam: Normal Bowel Sounds - Rectal Exam Rectal Exam: NORMAL INSPECTION - Exam External exam: NORMAL EXTERNAL EXAM - Extremities Exam Extremities exam: Positive for: normal inspection Additional comments: muscle strength 3/5 - Back Exam Back exam: NORMAL INSPECTION - Neurological Exam Neurological exam: Alert, Reflexes Normal - Psychiatric Exam Psychiatric exam: Normal Affect, Normal Mood - Skin Skin Exam: Normal Color Results - Vital Signs Recent Vital Signs: Last Vital Signs Temp 97.5 F L 04/25/18 07:59 Pulse 58 L 04/25/18 08:30 Resp 20 04/25/18 07:59 BP 141/88 04/25/18 08:30 Pulse Ox 98 04/25/18 07:59 - Labs Result Diagrams: 04/25/18 05:30 04/25/18 05:30 Labs: Laboratory Results - last 24 hr 04/25/18 04/25/18 05:30 05:30 WBC 6.7 RBC 4.64 Hgb 13.6 Hct 40.8 MCV 87.9 MCH 29.4 MCHC 33.4 RDW 15.7 H Plt Count 197 Sodium 140 Potassium 3.7 Chloride 105 Carbon Dioxide 26 Anion Gap 13 BUN 31 H Creatinine 1.2 Est GFR ( Amer) > 60 Est GFR (Non-Af Amer) 58 Random Glucose 94 Calcium 8.8 Assessment & Plan (1) Acute on chronic renal failure Status: Acute (2) Chronic kidney disease (CKD) Status: Acute (3) Depression Status: Acute (4) Generalized muscle weakness Status: Acute (5) Hyperlipidemia Status: Acute (6) Hypertension Status: Acute (7) Subdural hematoma Assessment and Plan: status post craniotomy and evacuation, plan for physical, occupational, speech and rec therapy for range of motion, strengthening, transfers and gait training, to write overall plan of care. Status: Acute
--- NOTE | 2018-04-25 09:56 | PCM.OPOC ---
Physiatry Overall Plan of Care - Overall Plan of Care Estimated Length of Stay in Weeks: 3 Rehab Impairment: Mobility, Gait, Cognition, Balance, Coordination Etiologic Diagnosis: Traumatic Brain Injury Rehab/Medical Prognosis: Fair - Anticipated Interventions Physical Therapy:: Yes Occupational Therapy:: Yes Speech Therapy:: Yes Recreational Therapy:: Yes - Therapy Goals Bed Mobility: Independent Ambulation: Supervision Functional Positional Changes:: Independent - Functional Outcomes Functional Outcomes: fair - Discharge Plan Identification of Barriers to Discharge: Cognition Discharge Destination: Home
--- NOTE | 2018-04-25 12:48 | CP.PCM.CON ---
History of Present Illness - History of Present Illness History of Present Illness: 83 y/o male with PMHx of HTN, BPH, CKD, HLD and subdural hematoma seen in acute rehab for painful calluses on the ball of his feet as well as painful elongated toenails. Pt states he is unable to cut them himself because they are thick and difficult to cut. States that prior to his hospital admission he walked a lot and the calluses and nails build up. Denies seeing a director of business operations regularly. Denies F/C/N/V/CP/SOB PSHx: craniotomy, left hip surgery All: NKDA SocHx: denies cigarette or alcohol use,denies illicit drug use Review of Systems - Review of Systems All systems: reviewed and no additional remarkable complaints except (per HPI) Past Patient History - Past Medical History & Family History Past Medical History?: Yes - Past Social History Smoking Status: Never Smoked - CARDIAC Hx Hypercholesterolemia: Yes Hx Hypertension: Yes - PULMONARY Hx Respiratory Disorders: No - NEUROLOGICAL Hx Neurological Disorder: No - HEENT Hx HEENT Problems: Yes Other/Comment: near sighted, use to wear glasses - RENAL Hx Chronic Kidney Disease: Yes (stage 3 ) - ENDOCRINE/METABOLIC Hx Hypothyroidism: Yes - HEMATOLOGICAL/ONCOLOGICAL Hx AIDS: No Hx Hepatitis A: Yes Hx Human Immunodeficiency Virus (HIV): No - INTEGUMENTARY Hx Dermatological Problems: Yes Hx Melanoma: Yes (partial removal of melanoma on right cheek done on 04/14/18) - MUSCULOSKELETAL/RHEUMATOLOGICAL Hx Arthritis: Yes Hx Falls: No - GASTROINTESTINAL Hx Gastrointestinal Disorders: No - GENITOURINARY/GYNECOLOGICAL Hx Genitourinary Disorders: Yes Other/Comment: Obstructive uropathy. urogenic bladder. turp 5-7 years ago. pt unsure - PSYCHIATRIC Hx Anxiety: Yes Hx Depression: Yes Hx Substance Use: No - SURGICAL HISTORY Hx Surgeries: Yes Hx Musculoskeletal Surgery: Yes (left hip surgery 3 years ago) Other/Comment: TURP-5 to 7 yrs ago, pt not sure - ANESTHESIA Hx Anesthesia: Yes Hx Anesthesia Reactions: No Hx Malignant Hyperthermia: No Meds Allergies/Adverse Reactions: Allergies Allergy/AdvReac Type Severity Reaction Status Date / Time No Known Allergies Allergy Verified 04/24/18 16:16 - Medications Medications: Current Medications Acetaminophen (Tylenol 325mg Tab) 650 mg PO Q6 PRN PRN Reason: Pain, Mild (1-3) Last Admin: 04/25/18 01:53 Dose: 650 mg Acetaminophen/Codeine Phosphate (Tylenol/Codeine 300 Mg/30 Mg) 1 tab PO Q4H PRN PRN Reason: Pain, moderate (4-7) Amlodipine Besylate (Norvasc) 5 mg PO DAILY [facility] Atorvastatin Calcium (Lipitor) 10 mg PO HS [facility] Last Admin: 04/24/18 21:16 Dose: 10 mg Bethanechol Chloride (Urecholine) 25 mg PO TID [facility] Last Admin: 04/25/18 08:32 Dose: 25 mg Bethanechol Chloride (Urecholine) 50 mg PO HS [facility] Last Admin: 04/24/18 21:16 Dose: 50 mg Clonazepam (Klonopin) 0.5 mg PO DAILY PRN PRN Reason: Anxiety Enalapril Maleate (Vasotec) 2.5 mg PO DAILY [facility] Hydralazine HCl (Apresoline) 10 mg PO Q6 [facility] Last Admin: 04/25/18 12:43 Dose: 10 mg Ceftriaxone Sodium 1 gm/ (Sodium Chloride) 100 mls @ 100 mls/hr IVPB DAILY@0600 [facility] Last Admin: 04/25/18 05:38 Dose: 100 mls/hr Metoprolol Tartrate (Lopressor) 12.5 mg PO Q12 [facility] Oxycodone/Acetaminophen (Percocet 5/325 Mg Tab) 1 tab PO Q4 PRN PRN Reason: Pain, severe (8-10) Stop: 04/27/18 16:37 Sevelamer Carbonate (Renvela) 800 mg PO TID [facility] Last Admin: 04/25/18 12:42 Dose: 800 mg Sodium Bicarbonate (Sodium Bicarbonate Tab) 650 mg PO Q12 [facility] Last Admin: 04/25/18 08:31 Dose: 650 mg Tamsulosin HCl (Flomax) 0.4 mg PO HS [facility] Last Admin: 04/24/18 21:16 Dose: 0.4 mg Temazepam (Restoril) 15 mg PO HS PRN PRN Reason: Sleep Valproate Sodium (Depakene Oral Soln) 500 mg PO BID [facility] Last Admin: 04/25/18 08:29 Dose: 500 mg Physical Exam - Constitutional Appears: Well, Non-toxic, No Acute Distress - Extremities Exam Additional comments: Bilateral LE focused exam: Vasc: DP/PT pulses palpable 2/4. Temperature gradient warm to cool. CFT < 3 sec to all digits. No pedal edema Derm: thickened dystrophic elongated toenails x10 with subungual debris. Hyperkeratotic lesions noted sub met 1 B/L. No open lesions, no erythema, no ecchymosis, no clinical signs of bacterial infection Neuro: protective sensation grossly intact Ortho: tenderness to palpation of toenails x 10. no tenderness to palpation of hyperkeratotic lesions - Neurological Exam Neurological exam: Alert, Oriented x3 Results - Vital Signs Recent Vital Signs: Last Vital Signs Temp 97.5 F L 04/25/18 07:59 Pulse 56 L 04/25/18 12:43 Resp 20 04/25/18 07:59 BP 130/80 04/25/18 12:43 Pulse Ox 98 04/25/18 07:59 - Labs Result Diagrams: 04/25/18 05:30 04/25/18 05:30 Labs: Laboratory Results - last 24 hr 04/25/18 04/25/18 05:30 05:30 WBC 6.7 RBC 4.64 Hgb 13.6 Hct 40.8 MCV 87.9 MCH 29.4 MCHC 33.4 RDW 15.7 H Plt Count 197 Sodium 140 Potassium 3.7 Chloride 105 Carbon Dioxide 26 Anion Gap 13 BUN 31 H Creatinine 1.2 Est GFR ( Amer) > 60 Est GFR (Non-Af Amer) 58 Random Glucose 94 Calcium 8.8 Assessment & Plan - Assessment and Plan (Free Text) Assessment: 83 y/o male with 1) bilateral foot calluses and 2) thickened painful dystrophic toenails x10 Plan Pt seen and evaluated at bedside Discussed with attending Dr. Nguyen Aseptic debridement of nails with sterile nippers and curette Pt tolerated procedure without incident Podiatry to sign off at this time
--- NOTE | 2018-04-25 15:23 | CP.PCM.HP ---
History of Present Illness - History of Present Illness History of Present Illness: 83 yo male with history of HTN, BPH, CKD III, HLD and recently diagnosed with Melanoma admitted on 04/16/18 because of sudden lost of speech lasting for 20 min. He was brought to ER where another episode of lost of speech occurred while talking to his brother on the phone. He regained speech spontaneously after about 5 minutes. There was no associated neurological deficit. CT scan of the head showed subdural hemorrhage. Patient underwent bilateral craniotomy and evacuation of hematoma on 04/21/18. Patient did well with surgery and later transferred to Acute Rehab on 04/24/18 for further therapy. Present on Admission - Present on Admission Any Indicators Present on Admission: No History of DVT/PE: No History of Uncontrolled Diabetes: No Urinary Catheter: No Decubitus Ulcer Present: No Review of Systems - Review of Systems All systems: reviewed and no additional remarkable complaints except (aside from those mentioned above, 12 point system review were negative by me) Past Patient History - Tetanus Immunizations Tetanus Immunization: Unknown - Past Medical History & Family History Past Medical History?: Yes - Past Social History Smoking Status: Never Smoked Chewing Tobacco Use: No Cigar Use: No - CARDIAC Hx Hypercholesterolemia: Yes Hx Hypertension: Yes - PULMONARY Hx Respiratory Disorders: No - NEUROLOGICAL Hx Neurological Disorder: No - HEENT Hx HEENT Problems: Yes Other/Comment: near sighted, use to wear glasses - RENAL Hx Chronic Kidney Disease: Yes (stage 3 ) - ENDOCRINE/METABOLIC Hx Hypothyroidism: Yes - HEMATOLOGICAL/ONCOLOGICAL Hx AIDS: No Hx Hepatitis A: Yes Hx Human Immunodeficiency Virus (HIV): No - INTEGUMENTARY Hx Dermatological Problems: Yes Hx Melanoma: Yes (partial removal of melanoma on right cheek done on 04/14/18) - MUSCULOSKELETAL/RHEUMATOLOGICAL Hx Arthritis: Yes Hx Falls: No - GASTROINTESTINAL Hx Gastrointestinal Disorders: No - GENITOURINARY/GYNECOLOGICAL Hx Genitourinary Disorders: Yes Other/Comment: Obstructive uropathy. urogenic bladder. turp 5-7 years ago. pt unsure - PSYCHIATRIC Hx Anxiety: Yes Hx Depression: Yes Hx Substance Use: No - SURGICAL HISTORY Hx Surgeries: Yes Hx Musculoskeletal Surgery: Yes (left hip surgery 3 years ago) Other/Comment: TURP-5 to 7 yrs ago, pt not sure - ANESTHESIA Hx Anesthesia: Yes Hx Anesthesia Reactions: No Hx Malignant Hyperthermia: No Meds Allergies/Adverse Reactions: Allergies Allergy/AdvReac Type Severity Reaction Status Date / Time No Known Allergies Allergy Verified 04/24/18 16:16 Physical Exam - Constitutional Appears: No Acute Distress - Head Exam Head Exam: ATRAUMATIC - Eye Exam Eye Exam: absent: Scleral icterus - ENT Exam ENT Exam: Mucous Membranes Moist - Neck Exam Neck exam: Negative for: Meningismus - Respiratory Exam Respiratory Exam: absent: Rales, Rhonchi, Wheezes, Respiratory Distress - Cardiovascular Exam Cardiovascular Exam: REGULAR RHYTHM, +S1, +S2 - GI/Abdominal Exam GI & Abdominal Exam: Soft. absent: Tenderness - Rectal Exam Rectal Exam: Deferred - Extremities Exam Extremities exam: Negative for: normal inspection (black, round, elevated growth on the left thigh) - Back Exam Back exam: NORMAL INSPECTION - Neurological Exam Neurological exam: Alert, Oriented x3 - Psychiatric Exam Psychiatric exam: Normal Affect - Skin Skin Exam: Dry, Intact Results - Vital Signs Recent Vital Signs: Last Vital Signs Temp 97.5 F L 04/25/18 07:59 Pulse 56 L 04/25/18 12:43 Resp 20 04/25/18 07:59 BP 130/80 04/25/18 12:43 Pulse Ox 98 04/25/18 07:59 - Labs Result Diagrams: 04/25/18 05:30 04/25/18 05:30 Labs: Laboratory Results - last 24 hr 04/25/18 04/25/18 05:30 05:30 WBC 6.7 RBC 4.64 Hgb 13.6 Hct 40.8 MCV 87.9 MCH 29.4 MCHC 33.4 RDW 15.7 H Plt Count 197 Sodium 140 Potassium 3.7 Chloride 105 Carbon Dioxide 26 Anion Gap 13 BUN 31 H Creatinine 1.2 Est GFR ( Amer) > 60 Est GFR (Non-Af Amer) 58 Random Glucose 94 Calcium 8.8 Assessment & Plan - Assessment and Plan (Free Text) Assessment: 83 yo male with history of HTN, BPH, CKD III, HLD and recently diagnosed with Melanoma admitted on 04/16/18 because of sudden lost of speech lasting for 20 min. He was brought to ER where another episode of lost of speech occurred while talking to his brother on the phone. He regained speech spontaneously after ab out 5 minutes. There was no associated neurological deficit. CT scan of the head showed subdural hemorrhage. Patient underwent bilateral craniotomy and evacuation of hematoma on 04/21/18. Patient did well with surgery and later transferred to Acute Rehab on 04/24/18 for further therapy. 1. Bilateral Subdural Hematomas S/P Bilateral craniotomy POD 4 still with bearable headache on Valproic Acid for seizure prevention 2. Dilated Ascending Aorta CT scan of chest showed 5.5 x 5.4 cm dilatation of ascending aorta asymptomatic Dr Arthur on cardiology consult Dr Rowe on cardiothoracic surgery consult continue Hydralazine, Lopressor and Vasotec needed continuous control of SBP < 140 CT angio of chest with [place] protocol prior to IV contrast was recommended by Dr Rowe however patient refused further work up on his aortic aneurysm 3. HTN BP controlled continue Hydralazine, Lopressor and Vasotec 4. CKD renal function continue to improve 5. Urinary Retention had urinary retention post surgery and had kumar catheter inserted remove kumar catheter now continue Bethanechol 10mg PO TID and 50mg PO HS Flomax 0.4mg PO HS 6. Melanoma patient is scheduled for excision biopsy of the melanomatous growth on his left thigh at [facility] this coming Friday advised to call MD to verify if he could hold the procedure until patient is discharge in about [address] Hidalgo had biopsied the small lesion on the patient's face 7. DVT prophylaxis venodyne boots while in bed
[2018-04-25] MEDS: Bethanechol 50 MG TAB PO SCH (21:13)
[2018-04-26] MEDS: Valproic Acid 250 mg/5 ml UD Cup PO SCH ×2 (10:42→17:02)
--- NOTE | 2018-04-26 15:31 | CP.PCM.CON ---
History of Present Illness - History of Present Illness History of Present Illness: Neurology consult dictated. PLan: 1. Continue keppra 500 mg bid 2. Repeat Ct head Thank you Past Patient History - Tetanus Immunizations Tetanus Immunization: Unknown - Past Medical History & Family History Past Medical History?: Yes - Past Social History Smoking Status: Never Smoked Chewing Tobacco Use: No Cigar Use: No - CARDIAC Hx Hypercholesterolemia: Yes Hx Hypertension: Yes - PULMONARY Hx Respiratory Disorders: No - NEUROLOGICAL Hx Neurological Disorder: No - HEENT Hx HEENT Problems: Yes Other/Comment: near sighted, use to wear glasses - RENAL Hx Chronic Kidney Disease: Yes (stage 3 ) - ENDOCRINE/METABOLIC Hx Hypothyroidism: Yes - HEMATOLOGICAL/ONCOLOGICAL Hx AIDS: No Hx Hepatitis A: Yes Hx Human Immunodeficiency Virus (HIV): No - INTEGUMENTARY Hx Dermatological Problems: Yes Hx Melanoma: Yes (partial removal of melanoma on right cheek done on 04/14/18) - MUSCULOSKELETAL/RHEUMATOLOGICAL Hx Arthritis: Yes Hx Falls: No - GASTROINTESTINAL Hx Gastrointestinal Disorders: No - GENITOURINARY/GYNECOLOGICAL Hx Genitourinary Disorders: Yes Other/Comment: Obstructive uropathy. urogenic bladder. turp 5-7 years ago. pt unsure - PSYCHIATRIC Hx Anxiety: Yes Hx Depression: Yes Hx Substance Use: No - SURGICAL HISTORY Hx Surgeries: Yes Hx Musculoskeletal Surgery: Yes (left hip surgery 3 years ago) Other/Comment: TURP-5 to 7 yrs ago, pt not sure - ANESTHESIA Hx Anesthesia: Yes Hx Anesthesia Reactions: No Hx Malignant Hyperthermia: No Meds Allergies/Adverse Reactions: Allergies Allergy/AdvReac Type Severity Reaction Status Date / Time No Known Allergies Allergy Verified 04/24/18 16:16 - Medications Medications: Current Medications Acetaminophen (Tylenol 325mg Tab) 650 mg PO Q6 PRN PRN Reason: Pain, Mild (1-3) Last Admin: 04/26/18 12:14 Dose: 650 mg Acetaminophen/Codeine Phosphate (Tylenol/Codeine 300 Mg/30 Mg) 1 tab PO Q4H PRN PRN Reason: Pain, moderate (4-7) Amlodipine Besylate (Norvasc) 5 mg PO DAILY [facility] Last Admin: 04/26/18 09:42 Dose: 5 mg Atorvastatin Calcium (Lipitor) 10 mg PO HS [facility] Last Admin: 04/25/18 21:23 Dose: 10 mg Bethanechol Chloride (Urecholine) 25 mg PO TID [facility] Last Admin: 04/26/18 12:14 Dose: 25 mg Bethanechol Chloride (Urecholine) 50 mg PO HS [facility] Last Admin: 04/25/18 21:13 Dose: 50 mg Clonazepam (Klonopin) 0.5 mg PO DAILY PRN PRN Reason: Anxiety Enalapril Maleate (Vasotec) 2.5 mg PO DAILY [facility] Last Admin: 04/26/18 09:42 Dose: 2.5 mg Hydralazine HCl (Apresoline) 10 mg PO Q6 [facility] Last Admin: 04/26/18 12:14 Dose: 10 mg Metoprolol Tartrate (Lopressor) 12.5 mg PO Q12 [facility] Last Admin: 04/26/18 10:41 Dose: Not Given Oxycodone/Acetaminophen (Percocet 5/325 Mg Tab) 1 tab PO Q4 PRN PRN Reason: Pain, severe (8-10) Stop: 04/27/18 16:37 Sevelamer Carbonate (Renvela) 800 mg PO TID [facility] Last Admin: 04/26/18 12:14 Dose: 800 mg Sodium Bicarbonate (Sodium Bicarbonate Tab) 650 mg PO Q12 [facility] Last Admin: 04/26/18 09:42 Dose: 650 mg Tamsulosin HCl (Flomax) 0.8 mg PO HS [facility] Temazepam (Restoril) 15 mg PO HS PRN PRN Reason: Sleep Valproate Sodium (Depakene Oral Soln) 500 mg PO BID [facility] Last Admin: 04/26/18 10:42 Dose: 500 mg Results - Vital Signs Recent Vital Signs: Last Vital Signs Temp 97.9 F 04/26/18 10:00 Pulse 52 L 04/26/18 10:41 Resp 20 04/26/18 10:00 BP 153/91 H 04/26/18 12:14 Pulse Ox 97 04/26/18 10:00 - Labs Result Diagrams: 04/25/18 05:30 04/25/18 05:30
[2018-04-26 17:16] LABS: URINE BACTERIA RARE (<OCC); URINE BILIRUBIN NEGATIVE (NEGATIVE); URINE CLARITY CLEAR (Clear); URINE COLOR YELLOW (YELLOW); URINE GLUCOSE (UA) NEG (NEGATIVE); URINE LEUKOCYTE ESTERASE NEG Leu/uL (Negative); URINE PROTEIN NEGATIVE (NEGATIVE); URINE UROBILINOGEN 0.2-1.0 mg/dL (0.2-1.0)
[2018-04-26 17:17] LABS: URINE BLOOD MODERATE (NEGATIVE)
[2018-04-26] MEDS ORDERED: Oxycodone/Acetaminophen 5/325 mg Tab PO PRN (17:56)
[2018-04-26] MEDS: Bethanechol 50 MG TAB PO SCH (21:19)
--- NOTE | 2018-04-27 08:36 | CON ---
DATE: 04/26/2018 NEUROLOGY CONSULTATION Consult placed by acute rehab, Dr. Martinez. HISTORY OF PRESENT ILLNESS: This is an 83-year-old male with a past medical history of hypertension, benign prostatic hypertrophy, chronic kidney disease stage 3, on dialysis who also has a recent diagnosis of melanoma. On 04/16/2018, the patient had aphasia, speech arrest and dysarthria. . He was a code stroke. because he regained speech after that five minutes. There was no weakness. There was no headache. There were no continuing symptoms. He was started on Keppra IV in thoughts of had a seizure. CAT scan of the head was done which shows subdural hemorrhage bilaterally. The patient was now seen for several days and did well and then on 04/21/2018, the patient had bilateral craniotomy and evacuation of hematoma by Dr. Angelo's group. He is now transitioned to rehab on 04/24/2018 for physical therapy. On examination, the patient is alert and oriented x3. Wound had healed properly. [place] are intact with no dehiscence. The patient does complain of mild headache, 2/10. There is no diplopia. There is no aphasia. There is no weakness. There is no other discomfort or photophobia. PAST MEDICAL HISTORY: HTN, BPH, CKD stage 3, HLP. PAST SURGICAL HISTORY: Status post subdural hematoma evacuation in 2013. FAMILY HISTORY: Nonsignificant. SOCIAL HISTORY: Used to smoke, but stopped recently. ALLERGIES: NO KNOWN DRUG ALLERGIES. PHYSICAL EXAMINATION: NEUROLOGICAL EXAM: Completely normal except for the fact that he has five parietal surgical wounds with maria elena. Pupils equal, round reactive to light as well. LABORATORY DATA: Labs are within normal limits. Chemistries within normal except for BUN of 31. There is no CAT scan that was done recently. IMPRESSION: This is an 83-year-old male, status post subdural hematoma evacuation who has a history of localization-related epilepsy. PLAN: 1. Continue Keppra 500 mg twice a day. 2. Repeat CT head. 3. Please see consult neurology p.r.n. and hemo followup p.r.n. as well. Savanna Downs MD
[2018-04-27] MEDS: Valproic Acid 250 mg/5 ml UD Cup PO SCH ×2 (10:00→17:06)
--- NOTE | 2018-04-27 12:30 | CP.PCM.PN ---
Subjective - Date & Time of Evaluation Date of Evaluation: 04/27/18 Time of Evaluation: 12:28 - Subjective Subjective: pt doing well complains of constant headache will adjust analgesia, schedule tylenol 975 q8 with additional coverage for pain scale hd stable nad Objective - Vital Signs/Intake and Output Vital Signs (last 24 hours): Temp Pulse Resp BP Pulse Ox 98.1 F 50 L 17 146/80 96 04/27/18 08:53 04/27/18 10:00 04/27/18 08:53 04/27/18 10:00 04/27/18 08:53 - Medications Medications: Current Medications Acetaminophen (Tylenol 325mg Tab) 325 mg PO Q8 [facility] Acetaminophen (Tylenol 325mg Tab) 975 mg PO Q6 [facility] Acetaminophen/Codeine Phosphate (Tylenol/Codeine 300 Mg/30 Mg) 1 tab PO Q4H PRN PRN Reason: Pain, moderate (4-7) Amlodipine Besylate (Norvasc) 5 mg PO DAILY [facility] Last Admin: 04/27/18 10:00 Dose: 5 mg Atorvastatin Calcium (Lipitor) 10 mg PO HS [facility] Last Admin: 04/26/18 21:18 Dose: 10 mg Bethanechol Chloride (Urecholine) 25 mg PO TID [facility] Last Admin: 04/27/18 10:00 Dose: 25 mg Bethanechol Chloride (Urecholine) 50 mg PO HS [facility] Last Admin: 04/26/18 21:19 Dose: 50 mg Clonazepam (Klonopin) 0.5 mg PO DAILY PRN PRN Reason: Anxiety Docusate Sodium (Colace) 100 mg PO BID [facility] Last Admin: 04/27/18 10:00 Dose: 100 mg Enalapril Maleate (Vasotec) 2.5 mg PO DAILY [facility] Last Admin: 04/27/18 10:00 Dose: 2.5 mg Hydralazine HCl (Apresoline) 10 mg PO Q6 [facility] Last Admin: 04/27/18 05:03 Dose: 10 mg Metoprolol Tartrate (Lopressor) 12.5 mg PO Q12 [facility] Last Admin: 04/27/18 10:00 Dose: Not Given Oxycodone/Acetaminophen (Percocet 5/325 Mg Tab) 1 tab PO Q4 PRN PRN Reason: Pain, severe (8-10) Stop: 04/29/18 16:37 Last Admin: 04/27/18 10:37 Dose: 1 tab Sevelamer Carbonate (Renvela) 800 mg PO TID [facility] Last Admin: 04/27/18 10:00 Dose: 800 mg Sodium Bicarbonate (Sodium Bicarbonate Tab) 650 mg PO Q12 [facility] Last Admin: 04/27/18 10:00 Dose: 650 mg Tamsulosin HCl (Flomax) 0.8 mg PO HS [facility] Last Admin: 04/26/18 21:19 Dose: 0.8 mg Temazepam (Restoril) 15 mg PO HS PRN PRN Reason: Sleep Valproate Sodium (Depakene Oral Soln) 500 mg PO BID [facility] Last Admin: 04/27/18 10:00 Dose: 500 mg - Labs Labs: 04/25/18 05:30 04/25/18 05:30 - Constitutional Appears: Non-toxic, No Acute Distress - Head Exam Additional comments: maria elena clean dry, no drainage - Eye Exam Eye Exam: EOMI, Normal appearance, PERRL - ENT Exam ENT Exam: Mucous Membranes Moist, Normal Oropharynx - Respiratory Exam Respiratory Exam: Clear to Ausculation Bilateral, NORMAL BREATHING PATTERN - Cardiovascular Exam Cardiovascular Exam: RRR, +S1, +S2 - GI/Abdominal Exam GI & Abdominal Exam: Soft, Normal Bowel Sounds. absent: Tenderness, Mass, Organomegaly - Extremities Exam Extremities Exam: Normal Capillary Refill, Normal Inspection. absent: Calf Tenderness, Joint Swelling - Back Exam Back Exam: absent: CVA tenderness (L), CVA tenderness (R) - Neurological Exam Neurological Exam: Alert, Awake, Oriented x3, Reflexes Normal. absent: Motor Sensory Deficit - Psychiatric Exam Psychiatric exam: Normal Affect, Normal Mood - Skin Skin Exam: Dry, Normal Color, Warm Assessment and Plan - Assessment and Plan (Free Text) Plan: 83 yo male with history of HTN, BPH, CKD III, HLD and recently diagnosed with Melanoma admitted on 04/16/18 because of sudden lost of speech lasting for 20 min. He was brought to ER where another episode of lost of speech occurred while talking to his brother on the phone. He regained speech spontaneously after about 5 minutes. There was no associated neurological deficit. CT scan of the head showed subdural hemorrhage. Patient underwent bilateral craniotomy and evacuation of hematoma on 04/21/18. Patient did well with surgery and later transferred to Acute Rehab on 04/24/18 for further therapy. 1. Bilateral Subdural Hematomas S/P Bilateral craniotomy POD 6 still with bearable headache on Valproic Acid for seizure prevention for headaches, pt was initiated on scheduled Tylenol 975 q8 and additional coverage for pain scales 2. Dilated Ascending Aorta CT scan of chest showed 5.5 x 5.4 cm dilatation of ascending aorta asymptomatic Dr Arthur on cardiology consult Dr Rowe on cardiothoracic surgery consult continue Hydralazine, Lopressor and Vasotec needed continuous control of SBP < 140 CT angio of chest with [place] protocol prior to IV contrast was recommended by Dr Rowe however patient refused further work up on his aortic aneurysm 3. HTN BP controlled continue Hydralazine, Lopressor and Vasotec 4. CKD renal function continue to improve 5. Urinary Retention had urinary retention post surgery and had kumar catheter inserted remove kumar catheter now continue Bethanechol 10mg PO TID and 50mg PO HS Flomax 0.4mg PO HS 6. Melanoma patient is scheduled for excision biopsy of the melanomatous growth on his left thigh at [facility] this coming Friday advised to call MD to verify if he could hold the procedure until patient is discharge in about [address] Hidalgo had biopsied the small lesion on the patient's face 7. DVT prophylaxis venodyne boots while in bed
--- NOTE | 2018-04-27 16:56 | CT ---
Date of service: 04/27/2018 PROCEDURE: CT HEAD WITHOUT CONTRAST. HISTORY: s/p subdural hematoma COMPARISON: Multiple serial examinations preceding the most recent study: 04/22/2008. TECHNIQUE: Axial computed tomography images were obtained through the head/brain without intravenous contrast. Supplemental Coronal and Sagittal projections created and reviewed. Radiation dose: Total exam DLP = 912.84 mGy-cm. This CT exam was performed using one or more of the following dose reduction techniques: Automated exposure control, adjustment of the mA and/or kV according to patient size, and/or use of iterative reconstruction technique. FINDINGS: HEMORRHAGE: Extradural clot associated with the craniotomy site on the right represents a new finding. Adjacent extra-axial fluid collection of the right has increased. The extra-axial fluid collection of the left has diminished. There continues to be cortical effacement. No midline shift. BRAIN: Surgical drains have been removed from the extra-axial space. Decrease in subdural air. No evidence of acute infarction. Is underlying cortical and cerebellar atrophy are stable. VENTRICLES: Stable size of the ventricles a and no evidence of ventricular shift. CALVARIUM: Status post removal of extra-axial drains in the subdural space bilaterally. Decrease in pneumocephalus. Increase in extra-axial fluid collection on the right. Decrease in extra-axial fluid and complexity of the fluid compared to the prior study. Hemorrhage/clot associated with the craniotomy site of the right. This has no impression or impact on the adjacent right frontal cortex. PARANASAL SINUSES: Unremarkable as visualized. No significant inflammatory changes. MASTOID AIR CELLS: Unremarkable as visualized. No inflammatory changes. OTHER FINDINGS: None. IMPRESSION: Normal CT of the Head.
--- NOTE | 2018-04-27 19:23 | CP.PCM.PN ---
Subjective - Date & Time of Evaluation Date of Evaluation: 04/25/18 Time of Evaluation: 16:00 - Subjective Subjective: no acute complaints at present, Objective - Vital Signs/Intake and Output Vital Signs (last 24 hours): Temp Pulse Resp BP Pulse Ox 98.1 F 50 L 17 138/85 96 04/27/18 08:53 04/27/18 17:06 04/27/18 08:53 04/27/18 17:06 04/27/18 08:53 - Medications Medications: Current Medications Acetaminophen (Tylenol 325mg Tab) 325 mg PO Q8 [facility] Last Admin: 04/27/18 13:04 Dose: 325 mg Acetaminophen (Tylenol 325mg Tab) 975 mg PO Q6 [facility] Last Admin: 04/27/18 17:08 Dose: 975 mg Acetaminophen/Codeine Phosphate (Tylenol/Codeine 300 Mg/30 Mg) 1 tab PO Q4H PRN PRN Reason: Pain, moderate (4-7) Amlodipine Besylate (Norvasc) 5 mg PO DAILY [facility] Last Admin: 04/27/18 10:00 Dose: 5 mg Atorvastatin Calcium (Lipitor) 10 mg PO HS [facility] Last Admin: 04/26/18 21:18 Dose: 10 mg Bethanechol Chloride (Urecholine) 25 mg PO TID [facility] Last Admin: 04/27/18 17:05 Dose: 25 mg Bethanechol Chloride (Urecholine) 50 mg PO HS [facility] Last Admin: 04/26/18 21:19 Dose: 50 mg Clonazepam (Klonopin) 0.5 mg PO DAILY PRN PRN Reason: Anxiety Docusate Sodium (Colace) 100 mg PO BID [facility] Last Admin: 04/27/18 17:05 Dose: 100 mg Enalapril Maleate (Vasotec) 2.5 mg PO DAILY [facility] Last Admin: 04/27/18 10:00 Dose: 2.5 mg Hydralazine HCl (Apresoline) 10 mg PO Q6 [facility] Last Admin: 04/27/18 17:06 Dose: 10 mg Metoprolol Tartrate (Lopressor) 12.5 mg PO Q12 [facility] Last Admin: 04/27/18 10:00 Dose: Not Given Oxycodone/Acetaminophen (Percocet 5/325 Mg Tab) 1 tab PO Q4 PRN PRN Reason: Pain, severe (8-10) Stop: 04/29/18 16:37 Last Admin: 04/27/18 10:37 Dose: 1 tab Sevelamer Carbonate (Renvela) 800 mg PO TID [facility] Last Admin: 04/27/18 17:05 Dose: 800 mg Sodium Bicarbonate (Sodium Bicarbonate Tab) 650 mg PO Q12 [facility] Last Admin: 04/27/18 10:00 Dose: 650 mg Tamsulosin HCl (Flomax) 0.8 mg PO HS [facility] Last Admin: 04/26/18 21:19 Dose: 0.8 mg Temazepam (Restoril) 15 mg PO HS PRN PRN Reason: Sleep Valproate Sodium (Depakene Oral Soln) 500 mg PO BID [facility] Last Admin: 04/27/18 17:06 Dose: 500 mg - Labs Labs: 04/25/18 05:30 04/25/18 05:30 - Constitutional Appears: Well - Head Exam Head Exam: ATRAUMATIC, NORMAL INSPECTION, NORMOCEPHALIC - Eye Exam Eye Exam: EOMI, Normal appearance Pupil Exam: NORMAL ACCOMODATION, PERRL - ENT Exam ENT Exam: Mucous Membranes Moist - Neck Exam Neck Exam: Normal Inspection - Respiratory Exam Respiratory Exam: Clear to Ausculation Bilateral, NORMAL BREATHING PATTERN - Cardiovascular Exam Cardiovascular Exam: REGULAR RHYTHM - GI/Abdominal Exam GI & Abdominal Exam: Soft, Normal Bowel Sounds - Exam External exam: NORMAL EXTERNAL EXAM - Extremities Exam Extremities Exam: Full ROM, Normal Capillary Refill, Normal Inspection - Back Exam Back Exam: NORMAL INSPECTION - Neurological Exam Neurological Exam: Alert, Awake Neuro motor strength exam: Left Upper Extremity: 3, Right Upper Extremity: 3, Left Lower Extremity: 3, Right Lower Extremity: 3 - Psychiatric Exam Psychiatric exam: Normal Affect - Skin Skin Exam: Dry, Normal Color Assessment and Plan (1) Acute on chronic renal failure Status: Acute (2) Chronic kidney disease (CKD) Status: Acute (3) Depression Status: Acute (4) Generalized muscle weakness Status: Acute (5) Hyperlipidemia Status: Acute (6) Hypertension Status: Acute (7) Subdural hematoma Assessment & Plan: plan to continue with physical, occupational therapy for range of motion, strengthening, transfers and gait training. Speech eval, and rec therapy. Equipment eval closer to Dc. Status: Acute
[2018-04-27] MEDS: Bethanechol 50 MG TAB PO SCH (21:20)
[2018-04-28] MEDS: Valproic Acid 250 mg/5 ml UD Cup PO SCH ×2 (08:21→17:07)
[2018-04-28] MEDS: Bethanechol 50 MG TAB PO SCH (21:03)
[2018-04-29] MEDS: Valproic Acid 250 mg/5 ml UD Cup PO SCH ×2 (08:16→17:28)
--- NOTE | 2018-04-29 12:12 | PCM.PSYTMC ---
Acute Rehab Team Conference - - Vital Signs: Vital Signs (Last 8 Hours): Vital Signs 04/29/18 04/29/18 04/29/18 06:01 08:16 08:17 Temperature Pulse Rate 52 L 57 L 57 L Respiratory Rate Blood Pressure 144/94 H 132/81 O2 Sat by Pulse Oximetry 04/29/18 04/29/18 08:29 09:03 Temperature 98.1 F 98.1 F Pulse Rate 57 L 57 L Respiratory 18 18 Rate Blood Pressure 132/81 132/81 O2 Sat by Pulse 95 Oximetry Pain: 2 - Precautions: Precautions: Fall Prevention, Cardiac/Pulmonary - Medications/Other Issues: Comment: -(+) Urinary retention 800-1200 on bladder scans, only agrees to have sc done at times, able to urinate 200-[address] Amato aware. Currently on Flomax and Urecholine PO. - Constipated despite Dulcolax supp and Colace PO. - (+) C/O of headaches. Started on Tylenol 4gms/day RTC, stated his headaches are " better than before". - Consults: Comment: Dr. East, Dr. Downs, Dr. Nguyen, Dr. 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 - Toileting: Toileting: Dependent - Bladder Management: Bladder Pattern: Retention Voiding Method: Urinal Bladder Management: Dependent Other Intervention:: Straight Cath PRN discomfort or per pt's request per Urologist. - Transfers: Transfers: Supervision - ADL's: ADL's: Moderate Assistance - Pain Management: Other Intervention:: 04/26: Started on Tylenol 4gms/day RTC, stated his headaches are " better than before". - Patient/Family Teaching: Other Intervention:: Care post brain surgery, incisionline care and safety precautions - Goals/Time Frame: Comment: Per multidisiciplinary care plan and goals - Provider: Registered Nurse:: Grace Cisneros Physical Therapy - Bed Mobility Bed Mobility: Supervision, Verbal Cues - Transfers Wheelchair to Mat: Verbal Cues, Minimal Assistance Sit to Stand: Verbal Cues, Minimal Assistance Comment: vc for sequenicng and safety, kareen hand placement - Ambulation Level of Assistance: Verbal Cues, Minimal Assistance Distance (ft.): 150 Assistive Devices: Rolling Walker Orthoses: 150' x 2, 25' x 2, 10' x 1. longer distance w/ w/c follow. mod vc/tc to address the following - to remain inside the frame of RW, to promote B heel strike L > R, to remain centered while amb pt tends to veer to L but hits obstacles on R, flexed posture, narrow REGINALD. grossly symmetrical stride length noted. difficulty navigating turns and obstacles - Stair Negotiation Stairs: Level of Assistance: Minimal Assistance Number of Stairs: 6 Handrails: Bilateral Comment: 6 in steps, step to pattern. Pt prefers to asc fwd, desc bkwd. However, pt agreeable to try the traditional strategy for stairs (asc/desc facing fwds). Task completed w/ min difficulty. Slightly incr'd BLE instability R >L noted w/ this method compared to his preference. - Standing Balance Static Stand: Contact Guard Assist Comment: w/ RW - Pain Pain (assessed during therapy session): 5 Alleviating Techniques: Medication, Relaxation Techniques, Exercise Comment: incisions - Insight/Carryover Insight/Carryover: Fair - Patient/Family Education Comment: DBE, SDH recovery related topics, benefits of OOB, activity pacing, balance, safety, fxnl mob, DME, pain mgmt, PT goals, POC, fall prec, cardiac prec, sz prec - Assessment/Plan Assessment: 83 yo male with B SDH s/p evacs admitted to [facility] acute rehab. Currently, he requires minimal assistance for ambulatory activities with a RW. He presents w/ dizziness, fatigue, pain and impared ability to perform gait, transfers, stairs, bed mobility and maintain balance. Cont'd skilled acute rehab PT recommended. - Goals Timeframe: 3 weeks Goals: the patient will score better than a 21/24 on the dynamic gait index so he is able to walk with less assistance. the patient will perform the motomed for at least 20 minutes continuous so he is able to walk for extended periods without becoming fatigued. up and down 2 flights with 1 rail mod I. sit <> stand and stand pivot mod I with cane. 1000' with straight cane mod I - Provider Physical Therapist:: Fern Mosquera License Number:: [id number] Occupational Therapy - Arousal/Attention/Orientation Level of Consciousness: Awake, Alert, Forgetful Patient Orientation: Person, Place, Time - ADL/IADL Self Feeding: Supervision, Set-up Help Grooming: Supervision, Set-up Help Dressing-Upper Ext: Supervision Dressing-Lower Ext: Minimal Assistance - Sitting Balance Static Sitting: Supervision Dynamic Sitting: Requires supervision - Transfers Wheelchair to Bed Transfers: Minimal Assistance Toilet Transfers: Minimal Assistance - Wheelchair Management Level of Assistance: Minimal Assistance Distance (ft.): 75 - Upper Extremity Status Right Upper Extremity Comment: WFL Left Upper Extremity Comment: WFL - Pain Pain (assessed during therapy session): 7 Alleviating Techniques: Medication Comment: +pain in frontal headache - Insight/Carryover Insight/Carryover: Fair - Patient/Family Education Comment: safety awareness, therapy scheudule ,role of OT/PT, dme/ae education - Assessment/Plan Assessment: patient is a 83 yo male presenting to [facility] with B/L subdural hematomas patient presenting with impaired dynamic standing balance, impaired act tolerannce, pain in head/heache, impaired knowledge of compensatory/adaptive techs , impaired safety awareness impacting pt's ability to complete adls, transfers/mobility and iadls safely and effectively. currently patient is able to complete ub adls with supervision , lb adls with min A with extended time and transfers mobility with cga/min A. barrier to progress also include poor motivation, lack of family support and poor act tolerance. recommend cont skilled ot services 5-6x/week as per plan of care - Goals Timeframe: 2 weeks - Provider Occupational Therapist:: Alexandra Paniagua License Number: [id number] Recreational Therapy - Participation Participation: Participates in Individual and/or Group Sessions - Attendance Attendance: 3-5 times per week - Activities Leisure Activities: Television - Socialization Level of Socialization: Initiates/interacts freely with care givers and peer - Diversional Time Diversional Time: listening to music, watching television - Assessment Assessment/Plan: Pt is agreeable to participate in 1:1 recreation therapy sessions. Pt had participated in connect four task and carried over task rules. Pt had demonstrated improved attention to task and arousal level. Pt required min verbal cues at times for problem solving strategies. While in room, will have setup on [place] for pt to play his preferred radio station for diversion from headache pain. Pt will continue to benefit from participating in recreation therapy sessions. Problems Currently Limiting Participation: headache pain, decrease leisure awareness level, decrease safety awareness, anxiety Goals and Time Frame: Pt will be encouraged to participate in 1:1 and group recreation therapy sessions to improve direction following, leisure awareness level, attention to task, and overall activity tolerance level by date of discharge. - Provider Therapist: Katharine Perea Nutrition - Current Diet Current Diet/Supplement/Feedings: Heart healthy diet - Appetite Percent Meal Consumed: 75-100% - Assessment/Goals/Time Frame Assessments/Goals/Time Frame: Pt at moderate nutritional risk. goal: 1. Pt to consume 75-100% of meals. Follow-up due on 05/05/2018 - Provider Provider: Jennifer Restrepo Case Management - Psychosocial Assessment Support Systems: Jaron Chun (brother)- Psychological Interventions/Needs: Patient is AAOx3 and able to verbalize needs. Discharge Concerns: Patient lives alone with 4 steps to enter his building. Patient has a new dx of melanoma and wants to follow up with oncologist. Patient uses public transportation. Patient/Family Meeting: CM met with patient and rehab team. Intervention/Goal/Outcome: 1. Goal: meet with team 2. Plan: home with services 3. schedule f/u appointments 4. DME needs 5. contact brother to assess level of involvement and invite him to caregiver training 6. continued emotional support - Discharge Plan Discharge Plan: Home with services Home Services: [facility] - Provider Provider: Irma Nava License Number: [id number] Rehabilitation Plan - Treatment Plan Treatment Plan: Physical Therapy, Occupational Therapy, Dietary, Patient/Family Education - Recommendation Recommendation: Physical Therapy, Occupational Therapy, Dietary, Patient/Family Education - Discharge Plan Discharge to: Home (Dc19)
--- NOTE | 2018-04-29 13:31 | CP.PCM.PN ---
Subjective - Date & Time of Evaluation Date of Evaluation: 04/29/18 Time of Evaluation: 13:30 - Subjective Subjective: pt seen evaluated during PT doing well states pain is better controlled HD stable NAD Objective - Vital Signs/Intake and Output Vital Signs (last 24 hours): Temp Pulse Resp BP Pulse Ox 98.1 F 57 L 18 128/85 95 04/29/18 09:03 04/29/18 09:03 04/29/18 09:03 04/29/18 12:48 04/29/18 09:03 Intake and Output: Vitals Reviewed GEN: WDWN, alert, cooperative HEENT: NCAT, PERRL, EOMI HEART: RRR, +S1S2, NO MRG LUNG: CTAB, NO WRR ABD: soft, NT, ND, No HSM, No masses EXT: normal pedal pulses NEURO: awake, alert SKIN: warm, dry PSYCH: normal mood, normal affect - Medications Medications: Current Medications Acetaminophen (Tylenol 325mg Tab) 325 mg PO Q8 [facility] Last Admin: 04/29/18 06:00 Dose: 325 mg Acetaminophen (Tylenol 325mg Tab) 975 mg PO Q6 [facility] Last Admin: 04/29/18 12:50 Dose: 975 mg Acetaminophen/Codeine Phosphate (Tylenol/Codeine 300 Mg/30 Mg) 1 tab PO Q4H PRN PRN Reason: Pain, moderate (4-7) Amlodipine Besylate (Norvasc) 5 mg PO DAILY [facility] Last Admin: 04/29/18 08:16 Dose: 5 mg Atorvastatin Calcium (Lipitor) 10 mg PO HS [facility] Last Admin: 04/28/18 21:02 Dose: 10 mg Bethanechol Chloride (Urecholine) 25 mg PO TID [facility] Last Admin: 04/29/18 12:48 Dose: 25 mg Bethanechol Chloride (Urecholine) 50 mg PO HS [facility] Last Admin: 04/28/18 21:03 Dose: 50 mg Bisacodyl (Dulcolax) 10 mg [place] DAILY PRN PRN Reason: Constipation Last Admin: 04/28/18 17:11 Dose: 10 mg Clonazepam (Klonopin) 0.5 mg PO DAILY PRN PRN Reason: Anxiety Docusate Sodium (Colace) 100 mg PO BID [facility] Last Admin: 04/29/18 08:15 Dose: 100 mg Enalapril Maleate (Vasotec) 2.5 mg PO DAILY [facility] Last Admin: 04/29/18 08:17 Dose: 2.5 mg Hydralazine HCl (Apresoline) 10 mg PO Q6 [facility] Last Admin: 04/29/18 12:48 Dose: 10 mg Lactulose (Enulose) 20 gm PO DAILY PRN PRN Reason: Constipation Metoprolol Tartrate (Lopressor) 12.5 mg PO Q12 [facility] Last Admin: 04/29/18 08:17 Dose: Not Given Oxycodone/Acetaminophen (Percocet 5/325 Mg Tab) 1 tab PO Q4 PRN PRN Reason: Pain, severe (8-10) Stop: 05/02/18 16:37 Last Admin: 04/27/18 10:37 Dose: 1 tab Sevelamer Carbonate (Renvela) 800 mg PO TID [facility] Last Admin: 04/29/18 12:48 Dose: 800 mg Sodium Bicarbonate (Sodium Bicarbonate Tab) 650 mg PO Q12 [facility] Last Admin: 04/29/18 08:17 Dose: 650 mg Tamsulosin HCl (Flomax) 0.8 mg PO HS [facility] Last Admin: 04/28/18 21:02 Dose: 0.8 mg Temazepam (Restoril) 15 mg PO HS PRN PRN Reason: Sleep Valproate Sodium (Depakene Oral Soln) 500 mg PO BID [facility] Last Admin: 04/29/18 08:16 Dose: 500 mg - Labs Labs: 04/25/18 05:30 04/25/18 05:30 Assessment and Plan - Assessment and Plan (Free Text) Plan: 83 yo male with history of HTN, BPH, CKD III, HLD and recently diagnosed with Melanoma admitted on 04/16/18 because of sudden lost of speech lasting for 20 min. He was brought to ER where another episode of lost of speech occurred while talking to his brother on the phone. He regained speech spontaneously after about 5 minutes. There was no associated neurological deficit. CT scan of the head showed subdural hemorrhage. Patient underwent bilateral craniotomy and evacuation of hematoma on 04/21/18. Patient did well with surgery and later transferred to Acute Rehab on 04/24/18 for further therapy. 1. Bilateral Subdural Hematomas S/P Bilateral craniotomy POD 6 still with bearable headache on Valproic Acid for seizure prevention for headaches, pt was initiated on scheduled Tylenol 975 q8 and additional coverage for pain scales 2. Dilated Ascending Aorta CT scan of chest showed 5.5 x 5.4 cm dilatation of ascending aorta asymptomatic Dr Arthur on cardiology consult Dr Rowe on cardiothoracic surgery consult continue Hydralazine, Lopressor and Vasotec needed continuous control of SBP < 140 CT angio of chest with [place] protocol prior to IV contrast was recommended by Dr Rowe however patient refused further work up on his aortic aneurysm 3. HTN BP controlled continue Hydralazine, Lopressor and Vasotec 4. CKD renal function continue to improve 5. Urinary Retention had urinary retention post surgery and had kumar catheter inserted remove kumar catheter now continue Bethanechol 10mg PO TID and 50mg PO HS Flomax 0.4mg PO HS 6. Melanoma patient is scheduled for excision biopsy of the melanomatous growth on his left thigh at [facility] this coming Friday advised to call MD to verify if he could hold the procedure until patient is discharge in about [address] Hidalgo had biopsied the small lesion on the patient's face 7. DVT prophylaxis venodyne boots while in bed
[2018-04-29] MEDS: Bethanechol 50 MG TAB PO SCH (21:27)
[2018-04-30] MEDS: Valproic Acid 250 mg/5 ml UD Cup PO SCH ×2 (08:54→17:02)
[2018-04-30 20:19] VITALS: RESP 20
--- NOTE | 2018-04-30 21:14 | CP.PCM.PN ---
Subjective - Date & Time of Evaluation Date of Evaluation: 04/29/18 Time of Evaluation: 11:00 - Subjective Subjective: no acute complaints of any pain Objective - Vital Signs/Intake and Output Vital Signs (last 24 hours): Temp Pulse Resp BP Pulse Ox 97.7 F 59 L 20 134/76 98 04/30/18 20:18 04/30/18 20:18 04/30/18 20:18 04/30/18 20:18 04/30/18 20:18 - Medications Medications: Current Medications Acetaminophen (Tylenol 325mg Tab) 325 mg PO Q8 [facility] Last Admin: 04/30/18 14:38 Dose: 325 mg Acetaminophen (Tylenol 325mg Tab) 975 mg PO Q6 [facility] Last Admin: 04/30/18 17:05 Dose: 975 mg Acetaminophen/Codeine Phosphate (Tylenol/Codeine 300 Mg/30 Mg) 1 tab PO Q4H PRN PRN Reason: Pain, moderate (4-7) Amlodipine Besylate (Norvasc) 5 mg PO DAILY [facility] Last Admin: 04/30/18 08:57 Dose: 5 mg Atorvastatin Calcium (Lipitor) 10 mg PO HS [facility] Last Admin: 04/29/18 21:25 Dose: 10 mg Bethanechol Chloride (Urecholine) 25 mg PO TID [facility] Last Admin: 04/30/18 17:03 Dose: 25 mg Bethanechol Chloride (Urecholine) 50 mg PO HS [facility] Last Admin: 04/29/18 21:27 Dose: 50 mg Bisacodyl (Dulcolax) 10 mg [place] DAILY PRN PRN Reason: Constipation Last Admin: 04/28/18 17:11 Dose: 10 mg Clonazepam (Klonopin) 0.5 mg PO DAILY PRN PRN Reason: Anxiety Last Admin: 04/30/18 04:23 Dose: 0.5 mg Docusate Sodium (Colace) 100 mg PO BID [facility] Last Admin: 04/30/18 17:02 Dose: 100 mg Enalapril Maleate (Vasotec) 2.5 mg PO DAILY [facility] Last Admin: 04/30/18 08:56 Dose: 2.5 mg Hydralazine HCl (Apresoline) 10 mg PO Q6 [facility] Last Admin: 04/30/18 17:02 Dose: 10 mg Lactulose (Enulose) 20 gm PO DAILY PRN PRN Reason: Constipation Last Admin: 04/29/18 17:28 Dose: 20 gm Metoprolol Tartrate (Lopressor) 12.5 mg PO Q12 [facility] Last Admin: 04/30/18 08:53 Dose: Not Given Oxycodone/Acetaminophen (Percocet 5/325 Mg Tab) 1 tab PO Q4 PRN PRN Reason: Pain, severe (8-10) Stop: 05/02/18 16:37 Last Admin: 04/27/18 10:37 Dose: 1 tab Sevelamer Carbonate (Renvela) 800 mg PO TID [facility] Last Admin: 04/30/18 17:03 Dose: 800 mg Sodium Bicarbonate (Sodium Bicarbonate Tab) 650 mg PO Q12 [facility] Last Admin: 04/30/18 08:56 Dose: 650 mg Tamsulosin HCl (Flomax) 0.8 mg PO HS [facility] Last Admin: 04/29/18 21:24 Dose: 0.8 mg Valproate Sodium (Depakene Oral Soln) 500 mg PO BID [facility] Last Admin: 04/30/18 17:02 Dose: 500 mg - Labs Labs: 04/25/18 05:30 04/25/18 05:30 - Constitutional Appears: Well - Head Exam Head Exam: ATRAUMATIC, NORMAL INSPECTION, NORMOCEPHALIC - Eye Exam Eye Exam: EOMI, Normal appearance Pupil Exam: NORMAL ACCOMODATION, PERRL - ENT Exam ENT Exam: Mucous Membranes Moist, Normal Exam - Neck Exam Neck Exam: Normal Inspection - Respiratory Exam Respiratory Exam: Clear to Ausculation Bilateral, NORMAL BREATHING PATTERN - Cardiovascular Exam Cardiovascular Exam: REGULAR RHYTHM - GI/Abdominal Exam GI & Abdominal Exam: Normal Bowel Sounds - Rectal Exam Rectal Exam: NORMAL INSPECTION - Exam External exam: NORMAL EXTERNAL EXAM - Extremities Exam Extremities Exam: Full ROM, Normal Capillary Refill, Normal Inspection - Back Exam Back Exam: NORMAL INSPECTION - Neurological Exam Neurological Exam: Alert, Awake Neuro motor strength exam: Left Upper Extremity: 3, Right Upper Extremity: 3, Left Lower Extremity: 3, Right Lower Extremity: 3 Additional comments: left side slightly weaker - Psychiatric Exam Psychiatric exam: Normal Affect, Normal Mood - Skin Skin Exam: Dry, Normal Color Assessment and Plan (1) Acute on chronic renal failure Status: Acute (2) Chronic kidney disease (CKD) Status: Acute (3) Depression Status: Acute (4) Generalized muscle weakness Status: Acute (5) Hyperlipidemia Status: Acute (6) Hypertension Status: Acute (7) Subdural hematoma Assessment & Plan: plan for team conference, physical, occupational therapy status post team, was Independent at home previously now needed assistance, Plan for Dc 19 Status: Acute
--- NOTE | 2018-04-30 21:17 | CP.PCM.PN ---
Subjective - Date & Time of Evaluation Date of Evaluation: 04/28/18 Time of Evaluation: 20:00 - Subjective Subjective: no acute complaints of pain Objective - Vital Signs/Intake and Output Vital Signs (last 24 hours): Temp Pulse Resp BP Pulse Ox 97.7 F 59 L 20 134/76 98 04/30/18 20:18 04/30/18 20:18 04/30/18 20:18 04/30/18 20:18 04/30/18 20:18 - Medications Medications: Current Medications Acetaminophen (Tylenol 325mg Tab) 325 mg PO Q8 [facility] Last Admin: 04/30/18 14:38 Dose: 325 mg Acetaminophen (Tylenol 325mg Tab) 975 mg PO Q6 [facility] Last Admin: 04/30/18 17:05 Dose: 975 mg Acetaminophen/Codeine Phosphate (Tylenol/Codeine 300 Mg/30 Mg) 1 tab PO Q4H PRN PRN Reason: Pain, moderate (4-7) Amlodipine Besylate (Norvasc) 5 mg PO DAILY [facility] Last Admin: 04/30/18 08:57 Dose: 5 mg Atorvastatin Calcium (Lipitor) 10 mg PO HS [facility] Last Admin: 04/30/18 21:13 Dose: 10 mg Bethanechol Chloride (Urecholine) 25 mg PO TID [facility] Last Admin: 04/30/18 17:03 Dose: 25 mg Bethanechol Chloride (Urecholine) 50 mg PO HS [facility] Last Admin: 04/29/18 21:27 Dose: 50 mg Bisacodyl (Dulcolax) 10 mg [place] DAILY PRN PRN Reason: Constipation Last Admin: 04/28/18 17:11 Dose: 10 mg Clonazepam (Klonopin) 0.5 mg PO DAILY PRN PRN Reason: Anxiety Last Admin: 04/30/18 04:23 Dose: 0.5 mg Docusate Sodium (Colace) 100 mg PO BID [facility] Last Admin: 04/30/18 17:02 Dose: 100 mg Enalapril Maleate (Vasotec) 2.5 mg PO DAILY [facility] Last Admin: 04/30/18 08:56 Dose: 2.5 mg Hydralazine HCl (Apresoline) 10 mg PO Q6 [facility] Last Admin: 04/30/18 17:02 Dose: 10 mg Lactulose (Enulose) 20 gm PO DAILY PRN PRN Reason: Constipation Last Admin: 04/29/18 17:28 Dose: 20 gm Metoprolol Tartrate (Lopressor) 12.5 mg PO Q12 [facility] Last Admin: 04/30/18 08:53 Dose: Not Given Oxycodone/Acetaminophen (Percocet 5/325 Mg Tab) 1 tab PO Q4 PRN PRN Reason: Pain, severe (8-10) Stop: 05/02/18 16:37 Last Admin: 04/27/18 10:37 Dose: 1 tab Sevelamer Carbonate (Renvela) 800 mg PO TID [facility] Last Admin: 04/30/18 17:03 Dose: 800 mg Sodium Bicarbonate (Sodium Bicarbonate Tab) 650 mg PO Q12 [facility] Last Admin: 04/30/18 21:13 Dose: 650 mg Tamsulosin HCl (Flomax) 0.8 mg PO HS [facility] Last Admin: 04/30/18 21:13 Dose: 0.8 mg Valproate Sodium (Depakene Oral Soln) 500 mg PO BID [facility] Last Admin: 04/30/18 17:02 Dose: 500 mg - Labs Labs: 04/25/18 05:30 04/25/18 05:30 - Constitutional Appears: Well - Head Exam Head Exam: ATRAUMATIC, NORMAL INSPECTION, NORMOCEPHALIC - Eye Exam Eye Exam: EOMI, Normal appearance Pupil Exam: NORMAL ACCOMODATION, PERRL - ENT Exam ENT Exam: Mucous Membranes Moist, Normal Exam - Neck Exam Neck Exam: Full ROM, Normal Inspection - Respiratory Exam Respiratory Exam: Clear to Ausculation Bilateral, NORMAL BREATHING PATTERN - Cardiovascular Exam Cardiovascular Exam: REGULAR RHYTHM - GI/Abdominal Exam GI & Abdominal Exam: Soft, Normal Bowel Sounds - Rectal Exam Rectal Exam: NORMAL INSPECTION - Exam External exam: NORMAL EXTERNAL EXAM Bimanual exam: NORMAL BIMANUAL EXAM - Extremities Exam Extremities Exam: Full ROM, Normal Capillary Refill, Normal Inspection - Back Exam Back Exam: NORMAL INSPECTION - Neurological Exam Neurological Exam: Alert, Awake Neuro motor strength exam: Left Upper Extremity: 3, Right Upper Extremity: 3, Left Lower Extremity: 3, Right Lower Extremity: 3 - Psychiatric Exam Psychiatric exam: Normal Affect - Skin Skin Exam: Dry, Normal Color Assessment and Plan (1) Acute on chronic renal failure Status: Acute (2) Chronic kidney disease (CKD) Status: Acute (3) Depression Status: Acute (4) Generalized muscle weakness Status: Acute (5) Hyperlipidemia Status: Acute (6) Hypertension Status: Acute (7) Subdural hematoma Assessment & Plan: plan for physical, occupational rec therapy status post speech evaluation. Patient status post lesion on foot noted on admission, consult and follow up with podiatry Status: Acute
[2018-04-30] MEDS: Bethanechol 50 MG TAB PO SCH (21:22)
[2018-05-01] MEDS: Valproic Acid 250 mg/5 ml UD Cup PO SCH ×2 (08:37→16:51)
[2018-05-01] MEDS ORDERED: Magnesium Hydroxide Susp 30 ml UD PO PRN (12:08)
--- NOTE | 2018-05-01 12:09 | CP.PCM.PN ---
Subjective - Date & Time of Evaluation Date of Evaluation: 05/01/18 Time of Evaluation: 09:30 - Subjective Subjective: No fever still with slight headache no dizziness denies weakness no CP no SOB requesting for MOM for sl dyspepsia Objective - Vital Signs/Intake and Output Vital Signs (last 24 hours): Temp Pulse Resp BP Pulse Ox 97.1 F L 53 L 20 135/90 97 05/01/18 07:37 05/01/18 08:38 05/01/18 07:37 05/01/18 08:38 05/01/18 07:37 - Medications Medications: Current Medications Acetaminophen (Tylenol 325mg Tab) 325 mg PO Q8 [facility] Last Admin: 05/01/18 06:00 Dose: 325 mg Acetaminophen/Codeine Phosphate (Tylenol/Codeine 300 Mg/30 Mg) 1 tab PO Q4H PRN PRN Reason: Pain, moderate (4-7) Amlodipine Besylate (Norvasc) 5 mg PO DAILY [facility] Last Admin: 05/01/18 08:38 Dose: 5 mg Atorvastatin Calcium (Lipitor) 10 mg PO HS [facility] Last Admin: 04/30/18 21:13 Dose: 10 mg Bethanechol Chloride (Urecholine) 25 mg PO TID [facility] Last Admin: 05/01/18 09:03 Dose: 25 mg Bethanechol Chloride (Urecholine) 50 mg PO HS [facility] Last Admin: 04/30/18 21:22 Dose: 50 mg Bisacodyl (Dulcolax) 10 mg [place] DAILY PRN PRN Reason: Constipation Last Admin: 04/28/18 17:11 Dose: 10 mg Clonazepam (Klonopin) 0.5 mg PO DAILY PRN PRN Reason: Anxiety Last Admin: 04/30/18 04:23 Dose: 0.5 mg Docusate Sodium (Colace) 100 mg PO BID [facility] Last Admin: 05/01/18 08:37 Dose: 100 mg Enalapril Maleate (Vasotec) 2.5 mg PO DAILY [facility] Last Admin: 05/01/18 09:03 Dose: 2.5 mg Hydralazine HCl (Apresoline) 10 mg PO Q6 [facility] Last Admin: 05/01/18 06:01 Dose: 10 mg Lactulose (Enulose) 20 gm PO DAILY PRN PRN Reason: Constipation Last Admin: 04/29/18 17:28 Dose: 20 gm Magnesium Hydroxide (Milk Of Magnesia) 15 ml PO Q6 PRN PRN Reason: Dyspepsia Metoprolol Tartrate (Lopressor) 12.5 mg PO Q12 [facility] Last Admin: 05/01/18 08:38 Dose: Not Given Oxycodone/Acetaminophen (Percocet 5/325 Mg Tab) 1 tab PO Q4 PRN PRN Reason: Pain, severe (8-10) Stop: 05/02/18 16:37 Last Admin: 04/27/18 10:37 Dose: 1 tab Sevelamer Carbonate (Renvela) 800 mg PO TID [facility] Last Admin: 05/01/18 08:38 Dose: 800 mg Sodium Bicarbonate (Sodium Bicarbonate Tab) 650 mg PO Q12 [facility] Last Admin: 05/01/18 08:39 Dose: 650 mg Tamsulosin HCl (Flomax) 0.8 mg PO HS [facility] Last Admin: 04/30/18 21:13 Dose: 0.8 mg Valproate Sodium (Depakene Oral Soln) 500 mg PO BID [facility] Last Admin: 05/01/18 08:37 Dose: 500 mg - Labs Labs: 04/25/18 05:30 04/25/18 05:30 - Constitutional Appears: Non-toxic, No Acute Distress - Head Exam Additional comments: Denita intact - Eye Exam Eye Exam: EOMI, Normal appearance Pupil Exam: NORMAL ACCOMODATION - ENT Exam ENT Exam: Mucous Membranes Moist, Normal External Ear Exam - Neck Exam Neck Exam: Full ROM. absent: Meningismus - Respiratory Exam Respiratory Exam: NORMAL BREATHING PATTERN. absent: Respiratory Distress - Cardiovascular Exam Cardiovascular Exam: REGULAR RHYTHM, +S1, +S2 - GI/Abdominal Exam GI & Abdominal Exam: Soft, Normal Bowel Sounds. absent: Tenderness - Extremities Exam Extremities Exam: Full ROM, Normal Capillary Refill. absent: Calf Tenderness, Pedal Edema - Back Exam Back Exam: Full ROM. absent: CVA tenderness (L), CVA tenderness (R) - Neurological Exam Neurological Exam: Alert, Awake, Oriented x3 Neuro motor strength exam: Left Upper Extremity: 5, Right Upper Extremity: 5, Left Lower Extremity: 5, Right Lower Extremity: 5 - Psychiatric Exam Psychiatric exam: Normal Affect, Normal Mood - Skin Skin Exam: Dry, Normal Color, Warm Assessment and Plan - Assessment and Plan (Free Text) Assessment: 83 yo male with history of HTN, BPH, CKD III, HLD and recently diagnosed with Astrid turner admitted on 04/16/18 because of sudden lost of speech lasting for 20 min. He was brought to ER where another episode of lost of speech occurred while talking to his brother on the phone. He regained speech spontaneously after about 5 minutes. There was no associated neurological deficit. CT scan of the head showed subdural hemorrhage. Patient underwent bilateral craniotomy and evacuation of hematoma on 04/21/18. Patient did well with surgery and later transferred to Acute Rehab on 04/24/18 for further Physical ?occupational and speech therapy. 1. Bilateral Subdural Hematomas S/P Bilateral craniotomy sl headache on Valproic Acid for seizure prevention 2. Dilated Ascending Aorta CT scan of chest showed 5.5 x 5.4 cm dilatation of ascending aorta asymptomatic Dr Rowe evaluated by cardiothoracic surgery continue Hydralazine, Lopressor and Vasotec needed continuous control of SBP < 140 CT angio of chest with [place] protocol prior to IV contrast was recommended by Dr Rowe however patient refused further work up on his aortic aneurysm 3. HTN BP controlled continue Hydralazine, Lopressor and Vasotec 4. CKD renal function continue to improve 5. Urinary Retention had urinary retention post surgery and had kumar catheter inserted off Kumar continue Bethanechol 10mg PO TID and 50mg PO HS Flomax 0.4mg PO HS 6. Melanoma patient is scheduled for excision biopsy of the melanomatous growth on his left thigh at [facility] this coming Friday advised to call MD to verify if he could hold the procedure until patient is discharge in about [address] Hidalgo had biopsied the small lesion on the patient's face 7. DVT prophylaxis venodyne boots while in bed
[2018-05-01] MEDS: Bethanechol 50 MG TAB PO SCH (21:29)
[2018-05-02] MEDS: Valproic Acid 250 mg/5 ml UD Cup PO SCH ×2 (08:33→18:07)
--- NOTE | 2018-05-02 16:53 | CP.PCM.PN ---
Subjective - Date & Time of Evaluation Date of Evaluation: 05/02/18 Time of Evaluation: 16:52 - Subjective Subjective: Coverage for Dr Tamir Nieto seen in the room and ambulating in the hallway with supervision still with scalp maria elena denies sob/cp or HAD or dizziness he is set for d/c home 05/06/18 continue current care Objective - Vital Signs/Intake and Output Vital Signs (last 24 hours): Temp Pulse Resp BP Pulse Ox 97.5 F L 80 20 130/80 97 05/02/18 08:50 05/02/18 12:00 05/02/18 08:50 05/02/18 12:00 05/02/18 08:50 - Medications Medications: Current Medications Acetaminophen (Tylenol 325mg Tab) 325 mg PO Q8 [facility] Last Admin: 05/02/18 05:38 Dose: 325 mg Acetaminophen/Codeine Phosphate (Tylenol/Codeine 300 Mg/30 Mg) 1 tab PO Q4H PRN PRN Reason: Pain, moderate (4-7) Amlodipine Besylate (Norvasc) 5 mg PO DAILY [facility] Last Admin: 05/02/18 08:34 Dose: 5 mg Atorvastatin Calcium (Lipitor) 10 mg PO HS [facility] Last Admin: 05/01/18 21:28 Dose: 10 mg Bethanechol Chloride (Urecholine) 25 mg PO TID [facility] Last Admin: 05/02/18 13:09 Dose: 25 mg Bethanechol Chloride (Urecholine) 50 mg PO HS [facility] Last Admin: 05/01/18 21:29 Dose: 50 mg Bisacodyl (Dulcolax) 10 mg [place] DAILY PRN PRN Reason: Constipation Last Admin: 04/28/18 17:11 Dose: 10 mg Clonazepam (Klonopin) 0.5 mg PO DAILY PRN PRN Reason: Anxiety Last Admin: 05/02/18 01:10 Dose: 0.5 mg Docusate Sodium (Colace) 100 mg PO BID [facility] Last Admin: 05/02/18 08:33 Dose: 100 mg Enalapril Maleate (Vasotec) 2.5 mg PO DAILY [facility] Last Admin: 05/02/18 08:36 Dose: 2.5 mg Hydralazine HCl (Apresoline) 10 mg PO Q6 [facility] Last Admin: 05/02/18 12:00 Dose: 10 mg Lactulose (Enulose) 20 gm PO DAILY PRN PRN Reason: Constipation Last Admin: 04/29/18 17:28 Dose: 20 gm Magnesium Hydroxide (Milk Of Magnesia) 15 ml PO Q6 PRN PRN Reason: Dyspepsia Last Admin: 05/01/18 12:20 Dose: 15 ml Metoprolol Tartrate (Lopressor) 12.5 mg PO Q12 [facility] Last Admin: 05/02/18 08:33 Dose: 12.5 mg Sevelamer Carbonate (Renvela) 800 mg PO TID [facility] Last Admin: 05/02/18 13:09 Dose: 800 mg Sodium Bicarbonate (Sodium Bicarbonate Tab) 650 mg PO Q12 [facility] Last Admin: 05/02/18 08:35 Dose: 650 mg Tamsulosin HCl (Flomax) 0.8 mg PO HS [facility] Last Admin: 05/01/18 21:28 Dose: 0.8 mg Valproate Sodium (Depakene Oral Soln) 500 mg PO BID [facility] Last Admin: 05/02/18 08:33 Dose: 500 mg - Labs Labs: 04/25/18 05:30 04/25/18 05:30
[2018-05-02] MEDS: Bethanechol 50 MG TAB PO SCH (22:01)
[2018-05-03] MEDS: Valproic Acid 250 mg/5 ml UD Cup PO SCH ×2 (08:33→17:42)
[2018-05-03] MEDS: Bethanechol 50 MG TAB PO SCH (22:05)
[2018-05-04] MEDS: Valproic Acid 250 mg/5 ml UD Cup PO SCH ×2 (08:16→17:01)
--- NOTE | 2018-05-04 09:40 | CP.PCM.PN ---
Subjective - Date & Time of Evaluation Date of Evaluation: 05/01/18 Time of Evaluation: 21:00 - Subjective Subjective: no acute complaints Objective - Vital Signs/Intake and Output Vital Signs (last 24 hours): Temp Pulse Resp BP Pulse Ox 97.7 F 51 L 20 138/82 97 05/04/18 08:04 05/04/18 08:15 05/04/18 08:04 05/04/18 08:15 05/04/18 08:04 - Medications Medications: Current Medications Acetaminophen (Tylenol 325mg Tab) 325 mg PO Q8 [facility] Last Admin: 05/04/18 06:25 Dose: 325 mg Acetaminophen/Codeine Phosphate (Tylenol/Codeine 300 Mg/30 Mg) 1 tab PO Q4H PRN PRN Reason: Pain, moderate (4-7) Amlodipine Besylate (Norvasc) 5 mg PO DAILY [facility] Last Admin: 05/04/18 08:15 Dose: 5 mg Atorvastatin Calcium (Lipitor) 10 mg PO HS [facility] Last Admin: 05/03/18 22:05 Dose: 10 mg Bethanechol Chloride (Urecholine) 25 mg PO TID [facility] Last Admin: 05/04/18 08:16 Dose: 25 mg Bethanechol Chloride (Urecholine) 50 mg PO HS [facility] Last Admin: 05/03/18 22:05 Dose: 50 mg Bisacodyl (Dulcolax) 10 mg [place] DAILY PRN PRN Reason: Constipation Last Admin: 04/28/18 17:11 Dose: 10 mg Clonazepam (Klonopin) 0.5 mg PO DAILY PRN PRN Reason: Anxiety Last Admin: 05/02/18 01:10 Dose: 0.5 mg Docusate Sodium (Colace) 100 mg PO BID [facility] Last Admin: 05/04/18 08:16 Dose: 100 mg Enalapril Maleate (Vasotec) 2.5 mg PO DAILY [facility] Last Admin: 05/04/18 08:15 Dose: 2.5 mg Hydralazine HCl (Apresoline) 10 mg PO Q6 [facility] Last Admin: 05/04/18 06:26 Dose: 10 mg Lactulose (Enulose) 20 gm PO DAILY PRN PRN Reason: Constipation Last Admin: 04/29/18 17:28 Dose: 20 gm Magnesium Hydroxide (Milk Of Magnesia) 15 ml PO Q6 PRN PRN Reason: Dyspepsia Last Admin: 05/01/18 12:20 Dose: 15 ml Metoprolol Tartrate (Lopressor) 12.5 mg PO Q12 [facility] Last Admin: 05/04/18 08:14 Dose: Not Given Sevelamer Carbonate (Renvela) 800 mg PO TID [facility] Last Admin: 05/04/18 08:15 Dose: 800 mg Sodium Bicarbonate (Sodium Bicarbonate Tab) 650 mg PO Q12 [facility] Last Admin: 05/04/18 08:15 Dose: 650 mg Tamsulosin HCl (Flomax) 0.8 mg PO HS [facility] Last Admin: 05/03/18 22:05 Dose: 0.8 mg Valproate Sodium (Depakene Oral Soln) 500 mg PO BID [facility] Last Admin: 05/04/18 08:16 Dose: 500 mg - Labs Labs: 04/25/18 05:30 04/25/18 05:30 - Constitutional Appears: Well - Head Exam Head Exam: ATRAUMATIC, NORMAL INSPECTION, NORMOCEPHALIC - Eye Exam Eye Exam: EOMI, Normal appearance Pupil Exam: NORMAL ACCOMODATION, PERRL - ENT Exam ENT Exam: Mucous Membranes Moist - Respiratory Exam Respiratory Exam: NORMAL BREATHING PATTERN - Cardiovascular Exam Cardiovascular Exam: REGULAR RHYTHM - GI/Abdominal Exam GI & Abdominal Exam: Normal Bowel Sounds - Rectal Exam Rectal Exam: NORMAL INSPECTION - Exam External exam: NORMAL EXTERNAL EXAM - Extremities Exam Extremities Exam: Full ROM - Back Exam Back Exam: NORMAL INSPECTION - Neurological Exam Neurological Exam: Alert Neuro motor strength exam: Left Upper Extremity: 3, Right Upper Extremity: 3, Left Lower Extremity: 3, Right Lower Extremity: 3 - Psychiatric Exam Psychiatric exam: Normal Affect, Normal Mood - Skin Skin Exam: Normal Color Assessment and Plan (1) Acute on chronic renal failure Status: Acute (2) Chronic kidney disease (CKD) Status: Acute (3) Depression Status: Acute (4) Generalized muscle weakness Status: Acute (5) Hyperlipidemia Status: Acute (6) Hypertension Status: Acute (7) Subdural hematoma Assessment & Plan: Pt ot prorogram, Spoke to Dr salazar now for Dc for Status: Acute
--- NOTE | 2018-05-04 13:01 | CP.PCM.PN ---
Subjective - Date & Time of Evaluation Date of Evaluation: 05/04/18 Time of Evaluation: 10:00 - Subjective Subjective: Patient seen and examined. Still noted some discomfort when urinating. Objective - Vital Signs/Intake and Output Vital Signs (last 24 hours): Temp Pulse Resp BP Pulse Ox 97.7 F 56 L 20 125/77 97 05/04/18 08:04 05/04/18 12:12 05/04/18 08:04 05/04/18 12:12 05/04/18 08:04 - Medications Medications: Current Medications Acetaminophen (Tylenol 325mg Tab) 325 mg PO Q8 [facility] Last Admin: 05/04/18 06:25 Dose: 325 mg Acetaminophen/Codeine Phosphate (Tylenol/Codeine 300 Mg/30 Mg) 1 tab PO Q4H PRN PRN Reason: Pain, moderate (4-7) Amlodipine Besylate (Norvasc) 5 mg PO DAILY [facility] Last Admin: 05/04/18 08:15 Dose: 5 mg Atorvastatin Calcium (Lipitor) 10 mg PO HS [facility] Last Admin: 05/03/18 22:05 Dose: 10 mg Bethanechol Chloride (Urecholine) 25 mg PO TID [facility] Last Admin: 05/04/18 12:12 Dose: 25 mg Bethanechol Chloride (Urecholine) 50 mg PO HS [facility] Last Admin: 05/03/18 22:05 Dose: 50 mg Bisacodyl (Dulcolax) 10 mg [place] DAILY PRN PRN Reason: Constipation Last Admin: 04/28/18 17:11 Dose: 10 mg Clonazepam (Klonopin) 0.5 mg PO DAILY PRN PRN Reason: Anxiety Last Admin: 05/02/18 01:10 Dose: 0.5 mg Docusate Sodium (Colace) 100 mg PO BID [facility] Last Admin: 05/04/18 08:16 Dose: 100 mg Enalapril Maleate (Vasotec) 2.5 mg PO DAILY [facility] Last Admin: 05/04/18 08:15 Dose: 2.5 mg Hydralazine HCl (Apresoline) 10 mg PO Q6 [facility] Last Admin: 05/04/18 12:12 Dose: 10 mg Lactulose (Enulose) 20 gm PO DAILY PRN PRN Reason: Constipation Last Admin: 04/29/18 17:28 Dose: 20 gm Magnesium Hydroxide (Milk Of Magnesia) 15 ml PO Q6 PRN PRN Reason: Dyspepsia Last Admin: 05/01/18 12:20 Dose: 15 ml Metoprolol Tartrate (Lopressor) 12.5 mg PO Q12 [facility] Last Admin: 05/04/18 08:14 Dose: Not Given Sevelamer Carbonate (Renvela) 800 mg PO TID [facility] Last Admin: 05/04/18 12:12 Dose: 800 mg Sodium Bicarbonate (Sodium Bicarbonate Tab) 650 mg PO Q12 [facility] Last Admin: 05/04/18 08:15 Dose: 650 mg Tamsulosin HCl (Flomax) 0.8 mg PO HS [facility] Last Admin: 05/03/18 22:05 Dose: 0.8 mg Valproate Sodium (Depakene Oral Soln) 500 mg PO BID [facility] Last Admin: 05/04/18 08:16 Dose: 500 mg - Labs Labs: 04/25/18 05:30 04/25/18 05:30 - Constitutional Appears: No Acute Distress - Head Exam Head Exam: ATRAUMATIC - Eye Exam Eye Exam: absent: Scleral icterus - ENT Exam ENT Exam: Mucous Membranes Moist - Neck Exam Neck Exam: absent: Meningismus - Respiratory Exam Respiratory Exam: absent: Rales, Rhonchi, Wheezes, Respiratory Distress - Cardiovascular Exam Cardiovascular Exam: REGULAR RHYTHM, +S1, +S2 - GI/Abdominal Exam GI & Abdominal Exam: Soft. absent: Tenderness - Rectal Exam Rectal Exam: Deferred - Neurological Exam Neurological Exam: Alert, Oriented x3 - Psychiatric Exam Psychiatric exam: Normal Affect - Skin Skin Exam: Dry, Intact Assessment and Plan - Assessment and Plan (Free Text) Assessment: 83 yo male with history of HTN, BPH, CKD III, HLD and recently diagnosed with Melanoma admitted on 04/16/18 because of sudden lost of speech lasting for 20 min. He was brought to ER where another episode of lost of speech occurred while talking to his brother on the phone. He regained speech spontaneously after about 5 minutes. There was no associated neurological deficit. CT scan of the head showed subdural hemorrhage. Patient underwent bilateral craniotomy and evacuation of hematoma on 04/21/18. Patient did well with surgery and later transferred to Acute Rehab on 04/24/18 for further therapy. 1. Bilateral Subdural Hematomas S/P Bilateral craniotomy on Valproic Acid for seizure prevention 2. Dilated Ascending Aorta CT scan of chest showed 5.5 x 5.4 cm dilatation of ascending aorta asymptomatic continue Hydralazine, Lopressor and Vasotec for BP control target SBP < 140 CT angio of chest with [place] protocol prior to IV contrast was recommended by Dr Rowe however patient refused further work up on his aortic aneurysm 3. HTN BP controlled continue Hydralazine, Lopressor and Vasotec 4. CKD renal function continue to improve 5. Urinary Retention had urinary retention post surgery after kumar catheter inserted continue Bethanechol 10mg PO TID and 50mg PO HS Flomax 0.4mg PO HS urinary retention resolved 6. Melanoma melanomatous growth to be followe up at [facility] 7. DVT prophylaxis venodyne boots while in bed
[2018-05-04] MEDS: Bethanechol 50 MG TAB PO SCH (21:07)
[2018-05-05] MEDS: Valproic Acid 250 mg/5 ml UD Cup PO SCH ×2 (08:28→17:05)
[2018-05-05] MEDS: Bethanechol 50 MG TAB PO SCH (21:52)
[2018-05-06 07:38] VITALS: PULSE 56; TEMP 97.4; O2SAT 98
[2018-05-06] MEDS: Valproic Acid 250 mg/5 ml UD Cup PO SCH (08:34)
--- NOTE | 2018-05-06 09:52 | CP.PCM.DIS ---
Provider - Provider Date of Admission: 04/24/18 16:16 Attending physician: Master Martinez MD Primary care physician: Dr. Joe Umanzor Consults: 04/24/18 16:46 Neurology Consult Routine Comment: Consulting Provider: Savanna Downs Consulting Physician: Savanna Downs Reason for Consult: s/p craniotomy and bilateral subdural hematoma on depakote Physiatry Consult Routine Comment: Consulting Provider: Mario East Consulting Physician: Mario East Reason for Consult: s/p craniotomy with bilateral evacuation of subdural hematoma 04/24/18 17:16 Case Management Referral Routine Comment: Physician Instructions: Reason For Exam: bilateral subdural hematoma Reason for Referral: Discharge Planning 04/24/18 17:21 Podiatry Consult Routine Comment: Consulting Provider: Viktor Nguyen Consulting Physician: Viktor Nguyen Reason for Consult: TOE NAIL CARE AND CUT ON BALL OF RIGHT FOOT 04/26/18 16:31 Urology Consult Routine Comment: Consulting Provider: Lynn Amato Consulting Physician: Lynn Amato Reason for Consult: urinary retention Time Spent in preparation of Discharge (in minutes): 20 Hospital Course - Lab Results Lab Results: Micro Results 04/26/18 17:00 Urine,Catheterized Urine Culture - Final No Growth (<1,000 CFU/ML) Most Recent Lab Values WBC 6.7 K/uL (4.8-10.8) 04/25/18 05:30 RBC 4.64 Mil/uL (4.40-5.90) 04/25/18 05:30 Hgb 13.6 g/dL (12.0-18.0) 04/25/18 05:30 Hct 40.8 % (35.0-51.0) 04/25/18 05:30 MCV 87.9 fl (80.0-94.0) 04/25/18 05:30 MCH 29.4 pg (27.0-31.0) 04/25/18 05:30 MCHC 33.4 g/dL (33.0-37.0) 04/25/18 05:30 RDW 15.7 % (11.5-14.5) H 04/25/18 05:30 Plt Count 197 K/uL (130-400) 04/25/18 05:30 Sodium 140 mmol/l (132-148) 04/25/18 05:30 Potassium 3.7 MMOL/L (3.6-5.0) 04/25/18 05:30 Chloride 105 mmol/L (98-107) 04/25/18 05:30 Carbon Dioxide 26 mmol/L (22-30) 04/25/18 05:30 Anion Gap 13 (10-20) 04/25/18 05:30 BUN 31 mg/dl (9-20) H 04/25/18 05:30 Creatinine 1.2 mg/dl (0.8-1.5) 04/25/18 05:30 Est GFR ( Amer) > 60 04/25/18 05:30 Est GFR (Non-Af Amer) 58 04/25/18 05:30 Random Glucose 94 mg/dL (75-110) 04/25/18 05:30 Calcium 8.8 mg/dL (8.4-10.2) 04/25/18 05:30 Urine Color Yellow (YELLOW) 04/26/18 17:00 Urine Clarity Clear (Clear) 04/26/18 17:00 Urine pH 7.0 (5.0-8.0) 04/26/18 17:00 Ur Specific [place] 1.015 (1.003-1.030) 04/26/18 17:00 Urine Protein Negative mg/dL (NEGATIVE) 04/26/18 17:00 Urine Glucose (UA) Neg mg/dL (NEGATIVE) 04/26/18 17:00 Urine Ketones Negative mg/dL (NEGATIVE) 04/26/18 17:00 Urine Blood Moderate (NEGATIVE) 04/26/18 17:00 Urine Nitrate Negative (NEGATIVE) 04/26/18 17:00 Urine Bilirubin Negative (NEGATIVE) 04/26/18 17:00 Urine Urobilinogen 0.2-1.0 mg/dL (0.2-1.0) 04/26/18 17:00 Ur Leukocyte Esterase Neg [place]/uL (Negative) 04/26/18 17:00 Urine RBC (Auto) 12 /hpf (0-3) H 04/26/18 17:00 Urine Microscopic WBC 1 /hpf (0-5) 04/26/18 17:00 Urine Bacteria Rare (<OCC) 04/26/18 17:00 - Hospital Course Hospital Course: 83 yo male with history of HTN, BPH, CKD III, HLD and recently diagnosed with Melanoma admitted on 04/16/18 because of sudden lost of speech lasting for 20 min. He was brought to ER where another episode of lost of speech occurred while talking to his brother on the phone. He regained speech spontaneously after about 5 minutes. There was no associated neurological deficit. CT scan of the head showed subdural hemorrhage. Patient underwent bilateral craniotomy and evacuation of hematoma on 04/21/18. Patient did well with surgery and later transferred to Acute Rehab on 04/24/18 for further therapy. Participated well with PT. Today to be discharged home with follow up with PMD. 1. Bilateral Subdural Hematomas S/P Bilateral craniotomy on Valproic Acid for seizure prevention 2. Dilated Ascending Aorta CT scan of chest showed 5.5 x 5.4 cm dilatation of ascending aorta asymptomatic continue Hydralazine, Lopressor and Vasotec for BP control target SBP < 140 CT angio of chest with [place] protocol prior to IV contrast was recommended by Dr Rowe however patient refused further work up on his aortic aneurysm 3. HTN BP controlled continue Hydralazine and Vasotec 4. CKD stage III - stable 5. Urinary Retention had urinary retention post surgery after kumar catheter inserted continue Bethanechol 10mg PO TID and 50mg PO HS Flomax 0.4mg PO HS urinary retention resolved 6. 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 DVT prophylaxis venodyne boots while in bed Discharge Exam - Head Exam Head Exam: ATRAUMATIC, NORMOCEPHALIC - Eye Exam Eye Exam: EOMI, PERRL Pupil Exam: NORMAL ACCOMODATION, PERRL - ENT Exam ENT Exam: Mucous Membranes Moist - Neck Exam Neck exam: Full Rom, Normal Inspection - Respiratory Exam Respiratory Exam: Clear to PA & Lateral, NORMAL BREATHING PATTERN. absent: Rales, Rhonchi, Wheezes - Cardiovascular Exam Cardiovascular Exam: REGULAR RHYTHM, RRR, +S1, +S2. absent: JVD - GI/Abdominal Exam GI & Abdominal Exam: Normal Bowel Sounds, Soft. absent: Distended, Guarding, Rebound, Tenderness - Rectal Exam Rectal Exam: Deferred - Extremities Exam Extremities exam: normal capillary refill, normal inspection, pedal pulses present - Back Exam Back exam: NORMAL INSPECTION - Neurological Exam Neurological exam: Alert, CN II-XII Intact, Oriented x3 - Psychiatric Exam Psychiatric exam: Normal Affect, Normal Mood - Skin Skin Exam: Dry, Intact, Normal Color, Warm Discharge Plan - Discharge Medications Prescriptions: amLODIPine [Norvasc] 5 mg PO DAILY #30 tab Atorvastatin [Lipitor] 10 mg PO HS #30 tab Bethanechol [Urecholine] 25 mg PO TID #90 tab Bethanechol [Urecholine] 50 mg PO HS #30 tab clonazePAM [Klonopin] 0.5 mg PO DAILY PRN #30 tab PRN Reason: Anxiety Docusate [Colace] 100 mg PO BID #60 cap Enalapril Maleate [Vasotec] 2.5 mg PO DAILY #30 tab Febuxostat [Uloric] 80 mg PO DAILY #30 tablet hydrALAZINE [Apresoline] 10 mg PO Q6 #120 tab Lactulose [Enulose] 20 gm PO DAILY PRN #120 ml PRN Reason: Constipation Sevelamer Carbonate [Renvela] 800 mg PO TID #90 tab Sodium Bicarbonate Tab 650 mg PO Q12 #60 tab Sodium Bicarbonate Tab 650 mg PO Q12 #60 tab Tamsulosin [Flomax] 0.4 mg PO HS #30 cap Valproic Acid Oral Soln [Depakene Oral Soln] 500 mg PO BID #120 cup - Follow Up Plan Condition: GOOD Disposition: HOME/ ROUTINE Patient education suggested?: Yes Instructions: Amlodipine, Atorvastatin, Bethanechol, Clonazepam, Docusate, Enalapril, Hydralazine, Sevelamer, Sodium Bicarbonate, Tamsulosin, Subdural Hematoma (DC), Valproic Acid and Derivatives Referrals: Madhu Diaz MD [Family Provider] -
[2018-05-06 13:06] VITALS: BP 132/78
--- NOTE | 2018-05-06 13:16 | CP.PCM.PN ---
Subjective - Date & Time of Evaluation Date of Evaluation: 05/06/18 Time of Evaluation: 10:00 - Subjective Subjective: patient is lying in bed resting no acute complaints Objective - Vital Signs/Intake and Output Vital Signs (last 24 hours): Temp Pulse Resp BP Pulse Ox 97.4 F L 56 L 20 132/78 98 05/06/18 07:37 05/06/18 08:36 05/06/18 07:37 05/06/18 13:00 05/06/18 07:37 - Medications Medications: Current Medications Acetaminophen (Tylenol 325mg Tab) 650 mg PO Q8 PRN PRN Reason: pain scale 1-10. Last Admin: 05/04/18 16:06 Dose: 650 mg Amlodipine Besylate (Norvasc) 5 mg PO DAILY [facility] Last Admin: 05/06/18 08:36 Dose: 5 mg Atorvastatin Calcium (Lipitor) 10 mg PO HS [facility] Last Admin: 05/05/18 21:52 Dose: 10 mg Bethanechol Chloride (Urecholine) 25 mg PO TID [facility] Last Admin: 05/06/18 13:05 Dose: 25 mg Bethanechol Chloride (Urecholine) 50 mg PO HS [facility] Last Admin: 05/05/18 21:52 Dose: 50 mg Bisacodyl (Dulcolax) 10 mg [place] DAILY PRN PRN Reason: Constipation Last Admin: 04/28/18 17:11 Dose: 10 mg Clonazepam (Klonopin) 0.5 mg PO DAILY PRN PRN Reason: Anxiety Last Admin: 05/06/18 03:21 Dose: 0.5 mg Docusate Sodium (Colace) 100 mg PO BID [facility] Last Admin: 05/06/18 08:34 Dose: 100 mg Docusate Sodium (Colace Liquid) 100 mg PO TID [facility] Last Admin: 05/06/18 13:04 Dose: Not Given Enalapril Maleate (Vasotec) 2.5 mg PO DAILY [facility] Last Admin: 05/06/18 08:35 Dose: 2.5 mg Hydralazine HCl (Apresoline) 10 mg PO Q6 [facility] Last Admin: 05/06/18 13:00 Dose: 10 mg Lactulose (Enulose) 20 gm PO DAILY PRN PRN Reason: Constipation Last Admin: 04/29/18 17:28 Dose: 20 gm Magnesium Hydroxide (Milk Of Magnesia) 15 ml PO Q6 PRN PRN Reason: Dyspepsia Last Admin: 05/01/18 12:20 Dose: 15 ml Metoprolol Tartrate (Lopressor) 12.5 mg PO Q12 [facility] Last Admin: 05/06/18 08:36 Dose: Not Given Sevelamer Carbonate (Renvela) 800 mg PO TID [facility] Last Admin: 05/06/18 13:05 Dose: 800 mg Sodium Bicarbonate (Sodium Bicarbonate Tab) 650 mg PO Q12 [facility] Last Admin: 05/06/18 08:35 Dose: 650 mg Tamsulosin HCl (Flomax) 0.8 mg PO HS [facility] Last Admin: 05/05/18 21:52 Dose: 0.8 mg Valproate Sodium (Depakene Oral Soln) 500 mg PO BID [facility] Last Admin: 05/06/18 08:34 Dose: 500 mg - Labs Labs: 04/25/18 05:30 04/25/18 05:30 - Constitutional Appears: Well - Head Exam Head Exam: ATRAUMATIC, NORMAL INSPECTION, NORMOCEPHALIC - Eye Exam Eye Exam: EOMI, Normal appearance, PERRL Pupil Exam: NORMAL ACCOMODATION - ENT Exam ENT Exam: Mucous Membranes Moist, Normal Exam - Neck Exam Neck Exam: Full ROM, Normal Inspection - Respiratory Exam Respiratory Exam: Clear to Ausculation Bilateral, NORMAL BREATHING PATTERN - Cardiovascular Exam Cardiovascular Exam: REGULAR RHYTHM - GI/Abdominal Exam GI & Abdominal Exam: Soft, Normal Bowel Sounds - Rectal Exam Rectal Exam: NORMAL INSPECTION - Exam External exam: NORMAL EXTERNAL EXAM - Extremities Exam Extremities Exam: Full ROM, Normal Capillary Refill - Back Exam Back Exam: NORMAL INSPECTION - Neurological Exam Neurological Exam: Alert, Awake Neuro motor strength exam: Left Upper Extremity: 3, Right Upper Extremity: 3, Left Lower Extremity: 3, Right Lower Extremity: 3 - Psychiatric Exam Psychiatric exam: Normal Affect, Normal Mood - Skin Skin Exam: Dry, Intact Assessment and Plan (1) Acute on chronic renal failure Status: Acute (2) Chronic kidney disease (CKD) Status: Acute (3) Depression Status: Acute (4) Generalized muscle weakness Status: Acute (5) Hyperlipidemia Status: Acute (6) Hypertension Status: Acute (7) Subdural hematoma Assessment & Plan: plan for discharge today with home services, discussed Dc planning Status: Acute
--- NOTE | 2018-05-06 13:19 | CP.PCM.PN ---
Subjective - Date & Time of Evaluation Date of Evaluation: 05/05/18 Time of Evaluation: 11:00 - Subjective Subjective: no acute complaints of neck or back pain Objective - Vital Signs/Intake and Output Vital Signs (last 24 hours): Temp Pulse Resp BP Pulse Ox 97.4 F L 56 L 20 132/78 98 05/06/18 07:37 05/06/18 08:36 05/06/18 07:37 05/06/18 13:00 05/06/18 07:37 - Medications Medications: Current Medications Acetaminophen (Tylenol 325mg Tab) 650 mg PO Q8 PRN PRN Reason: pain scale 1-10. Last Admin: 05/04/18 16:06 Dose: 650 mg Amlodipine Besylate (Norvasc) 5 mg PO DAILY [facility] Last Admin: 05/06/18 08:36 Dose: 5 mg Atorvastatin Calcium (Lipitor) 10 mg PO HS [facility] Last Admin: 05/05/18 21:52 Dose: 10 mg Bethanechol Chloride (Urecholine) 25 mg PO TID [facility] Last Admin: 05/06/18 13:05 Dose: 25 mg Bethanechol Chloride (Urecholine) 50 mg PO HS [facility] Last Admin: 05/05/18 21:52 Dose: 50 mg Bisacodyl (Dulcolax) 10 mg [place] DAILY PRN PRN Reason: Constipation Last Admin: 04/28/18 17:11 Dose: 10 mg Clonazepam (Klonopin) 0.5 mg PO DAILY PRN PRN Reason: Anxiety Last Admin: 05/06/18 03:21 Dose: 0.5 mg Docusate Sodium (Colace) 100 mg PO BID [facility] Last Admin: 05/06/18 08:34 Dose: 100 mg Docusate Sodium (Colace Liquid) 100 mg PO TID [facility] Last Admin: 05/06/18 13:04 Dose: Not Given Enalapril Maleate (Vasotec) 2.5 mg PO DAILY [facility] Last Admin: 05/06/18 08:35 Dose: 2.5 mg Hydralazine HCl (Apresoline) 10 mg PO Q6 [facility] Last Admin: 05/06/18 13:00 Dose: 10 mg Lactulose (Enulose) 20 gm PO DAILY PRN PRN Reason: Constipation Last Admin: 04/29/18 17:28 Dose: 20 gm Magnesium Hydroxide (Milk Of Magnesia) 15 ml PO Q6 PRN PRN Reason: Dyspepsia Last Admin: 05/01/18 12:20 Dose: 15 ml Metoprolol Tartrate (Lopressor) 12.5 mg PO Q12 [facility] Last Admin: 05/06/18 08:36 Dose: Not Given Sevelamer Carbonate (Renvela) 800 mg PO TID [facility] Last Admin: 05/06/18 13:05 Dose: 800 mg Sodium Bicarbonate (Sodium Bicarbonate Tab) 650 mg PO Q12 [facility] Last Admin: 05/06/18 08:35 Dose: 650 mg Tamsulosin HCl (Flomax) 0.8 mg PO HS [facility] Last Admin: 05/05/18 21:52 Dose: 0.8 mg Valproate Sodium (Depakene Oral Soln) 500 mg PO BID [facility] Last Admin: 05/06/18 08:34 Dose: 500 mg - Labs Labs: 04/25/18 05:30 04/25/18 05:30 - Constitutional Appears: Well - Head Exam Head Exam: ATRAUMATIC, NORMAL INSPECTION, NORMOCEPHALIC - Eye Exam Eye Exam: EOMI, Normal appearance, PERRL Pupil Exam: NORMAL ACCOMODATION - ENT Exam ENT Exam: Mucous Membranes Moist, Normal Exam - Neck Exam Neck Exam: Full ROM, Normal Inspection - Respiratory Exam Respiratory Exam: Clear to Ausculation Bilateral, NORMAL BREATHING PATTERN - Cardiovascular Exam Cardiovascular Exam: REGULAR RHYTHM - GI/Abdominal Exam GI & Abdominal Exam: Soft, Normal Bowel Sounds - Rectal Exam Rectal Exam: NORMAL INSPECTION - Exam External exam: NORMAL EXTERNAL EXAM - Extremities Exam Extremities Exam: Full ROM, Normal Capillary Refill, Normal Inspection - Back Exam Back Exam: NORMAL INSPECTION - Neurological Exam Neurological Exam: Alert, Awake Neuro motor strength exam: Left Upper Extremity: 3, Right Upper Extremity: 3, Left Lower Extremity: 3, Right Lower Extremity: 3 - Psychiatric Exam Psychiatric exam: Normal Affect, Normal Mood - Skin Skin Exam: Dry, Intact Assessment and Plan (1) Acute on chronic renal failure Status: Acute (2) Chronic kidney disease (CKD) Status: Acute (3) Depression Status: Acute (4) Generalized muscle weakness Status: Acute (5) Hyperlipidemia Status: Acute (6) Hypertension Status: Acute (7) Subdural hematoma Assessment & Plan: plan for physical, occupational, rec and speech therapy and dietary follow up with PMD and surgeon after discharge Status: Acute
== END 2018-05-06 14:00 | disposition home or self-care (01) | DRG 949 ==
PROC: F08Z2FZ Grooming/Personal Hygiene Treatment using Assistive, Adaptive, Supportive or Protective Equipment (ICD-10-PCS; principal; 2018-04-24)
PROC: F08Z1FZ Dressing Techniques Treatment using Assistive, Adaptive, Supportive or Protective Equipment (ICD-10-PCS; 2018-04-24)
PROC: F07Z9FZ Gait Training/Functional Ambulation Treatment using Assistive, Adaptive, Supportive or Protective Equipment (ICD-10-PCS; 2018-04-24)
PROC: F07L6GZ Therapeutic Exercise Treatment of Musculoskeletal System - Lower Back / Lower Extremity using Aerobic Endurance and Conditioning Equipment (ICD-10-PCS; 2018-04-24)
DX: Z48.812 Encounter for surgical aftercare following surgery on the circulatory system (principal); N17.9 Acute kidney failure, unspecified; G40.802 Other epilepsy, not intractable, without status epilepticus; N18.3 Chronic kidney disease, stage 3 (moderate); I12.9 Hypertensive chronic kidney disease with stage 1 through stage 4 chronic kidney disease, or unspecified chronic kidney disease; I77.810 Thoracic aortic ectasia; E78.00 Pure hypercholesterolemia, unspecified; F32.9 Major depressive disorder, single episode, unspecified; F41.9 Anxiety disorder, unspecified; C43.72 Malignant melanoma of left lower limb, including hip; N40.1 Benign prostatic hyperplasia with lower urinary tract symptoms; R33.8 Other retention of urine; E78.5 Hyperlipidemia, unspecified; Z96.642 Presence of left artificial hip joint; E03.9 Hypothyroidism, unspecified; L84 Corns and callosities; L60.3 Nail dystrophy; Z87.891 Personal history of nicotine dependence; M62.81 Muscle weakness (generalized)

== ENCOUNTER 2018-06-04 13:16 | Emergency (ER) | payer MEDICARE ==
[2018-06-04 13:16] VITALS: BMI 26.2
--- NOTE | 2018-06-04 15:14 | ED PDOC ---
HPI: Male Pain Time Seen by Provider: 06/04/18 13:39 Chief Complaint (Nursing): Male Genitourinary Chief Complaint (Provider): urinary difficulty History Per: Patient History/Exam Limitations: no limitations Onset/Duration Of Symptoms: Waxing/Waning Current Symptoms Are (Timing): Still Present Severity: Moderate Quality Of Discomfort: Burning Alleviating Factors: None Additional Complaint(s): 83yom male with prostate hypertrophy and neurogenic bladder per Dr Gamez, presents w urinary urgency, hesitancy and intermittent retention, but able to start stream slowly. No recent UTIs. Attempted to see Dr Gamez but unable. Denies abd pain, back pain or weakness. Past Medical History Reviewed: Historical Data, Nursing Documentation, Vital Signs Vital Signs: Last Vital Signs Temp 97 F L 06/04/18 13:26 Pulse 62 06/04/18 13:26 Resp 17 06/04/18 13:26 BP 169/90 H 06/04/18 13:26 Pulse Ox 97 06/04/18 13:26 - Medical History PMH: Anxiety, Arthritis, Depression, HTN, Hypercholesterolemia, Hypothyroidism, Chronic Kidney Disease (stage 3 ) Denies: HIV - Surgical History Surgical History: Denies: Hernia Repair - Family History Family History: States: Unknown Family Hx - Social History Current smoker - smoking cessation education provided: No - Home Medications Home Medications: Ambulatory Orders Medication Instructions Recorded Atorvastatin [Lipitor] 10 mg PO HS #30 tab 05/06/18 Bethanechol [Urecholine] 25 mg PO TID #90 tab 05/06/18 Bethanechol [Urecholine] 50 mg PO HS #30 tab 05/06/18 Docusate [Colace] 100 mg PO BID #60 cap 05/06/18 Enalapril Maleate [Vasotec] 2.5 mg PO DAILY #30 tab 05/06/18 Febuxostat [Uloric] 80 mg PO DAILY #30 tablet 05/06/18 Lactulose [Enulose] 20 gm PO DAILY PRN #120 ml 05/06/18 Sevelamer Carbonate [Renvela] 800 mg PO TID #90 tab 05/06/18 Sodium Bicarbonate Tab 650 mg PO Q12 #60 tab 05/06/18 Sodium Bicarbonate Tab 650 mg PO Q12 #60 tab 05/06/18 Tamsulosin [Flomax] 0.4 mg PO HS #30 cap 05/06/18 Valproic Acid Oral Soln [Depakene 500 mg PO BID #120 cup 05/06/18 Oral Soln] amLODIPine [Norvasc] 5 mg PO DAILY #30 tab 05/06/18 clonazePAM [Klonopin] 0.5 mg PO DAILY PRN #30 tab 05/06/18 hydrALAZINE [Apresoline] 10 mg PO Q6 #120 tab 05/06/18 Sulfamethoxazole/Trimethoprim 1 tab PO BID #14 tab 06/04/18 [Bactrim DS 800 mg-160 mg] Ciprofloxacin [Cipro] 500 mg PO BID #14 tab 06/05/18 - Allergies Allergies/Adverse Reactions: Allergies Allergy/AdvReac Type Severity Reaction Status Date / Time No Known Allergies Allergy Verified 06/04/18 13:30 Review of Systems Constitutional: Negative for: Fever ENT: Negative for: Nose Discharge Cardiovascular: Negative for: Palpitations Respiratory: Negative for: Cough, Shortness of Breath Gastrointestinal: Negative for: Abdominal Pain Genitourinary Male: Positive for: Dysuria, Frequency. Negative for: Hematuria, Rash, Penile Pain Musculoskeletal: Negative for: Neck Pain, Back Pain Skin: Negative for: Rash Neurological: Negative for: Weakness, Numbness Physical Exam - Reviewed Nursing Documentation Reviewed: Yes Vital Signs Reviewed: Yes - Physical Exam Appears: Positive for: Well, Non-toxic Head Exam: Positive for: ATRAUMATIC Skin: Positive for: Normal Color, Warm, Dry Cardiovascular/Chest: Negative for: Bradycardia Respiratory: Negative for: Respiratory Distress Gastrointestinal/Abdominal: Positive for: Other (no bladder distension). Negative for: Tenderness Extremity: Positive for: Normal ROM - ECG O2 Sat by Pulse Oximetry: 97 Medical Decision Making Medical Decision Making: bladder scan 356ml able to urinate d/w Dr gamez urologist recommends starting bactrim BID, no kuamr for now, patient able to urinate, will see in office friday, followup cultures Note to PA if urine culture needs Abx adjustment please inform Dr Gamez also. update 06/05 mirco returned +cornybacterium, d/w Dr Gamez rec adding cipro and continuing bactrim, followup office next week. Cipro transmitted to [facility] on patient request, discussed results on phone [phone] 05/26 , states is feeling better, urinating more freely Disposition - Clinical Impression Clinical Impression: Urinary tract infection, Neurogenic bladder - Patient ED Disposition Is Patient to be Admitted: No - Disposition Referrals: Maik Gamez Jr., MD [Staff Provider] - Disposition Time: 15:01 Condition: STABLE Additional Instructions: See Dr Gamez radha for followup. Return to ER for inability to urinate, fever, pain or any concern. Prescriptions: Sulfamethoxazole/Trimethoprim [Bactrim DS 800 mg-160 mg] 1 tab PO BID #14 tab Instructions: Urinary Tract Infections in Adults, Neurogenic Bladder in Adults Forms: [facility] (Turkish)
[2018-06-04 15:27] VITALS: BP 152/88; PULSE 67; RESP 16; TEMP 97.7
[2018-06-05 17:54] VITALS: O2SAT 97
== END 2018-06-04 15:33 | disposition home or self-care (01) ==
LOC: H.ER 13:16
DX: N39.0 Urinary tract infection, site not specified (principal); N31.9 Neuromuscular dysfunction of bladder, unspecified; I12.9 Hypertensive chronic kidney disease with stage 1 through stage 4 chronic kidney disease, or unspecified chronic kidney disease; E03.9 Hypothyroidism, unspecified; E78.00 Pure hypercholesterolemia, unspecified; F32.9 Major depressive disorder, single episode, unspecified; F41.9 Anxiety disorder, unspecified; N40.0 Benign prostatic hyperplasia without lower urinary tract symptoms

== ENCOUNTER 2018-07-21 12:35 | Emergency (ER) | payer MEDICARE ==
[2018-07-21 12:36] VITALS: BMI 26.2
[2018-07-21 12:48] VITALS: BP 157/84; PULSE 62; RESP 16; TEMP 97.9; O2SAT 96
--- NOTE | 2018-07-21 13:31 | ED PDOC ---
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 Patient reports that a few weeks ago he was seen at an outside ED where he had an US of his right foot to rule out a clot, s howing normal results. Today, he notes waking up with a swollen right calf, but denies pain, trauma, clotting disorders, recent long distance travel / surgery / immobilization, fever, chills, chest pain, and shortness of breath. Of note, patient does state that secondary to the cold weather he has been more sedentary recently. PMD: Madhu Diaz Past Medical History Reviewed: Historical Data, Nursing Documentation, Vital Signs Vital Signs: Last Vital Signs Temp 97.9 F 07/21/18 12:45 Pulse 62 07/21/18 12:45 Resp 16 07/21/18 12:45 BP 157/84 H 07/21/18 12:45 Pulse Ox 96 07/21/18 12:45 - Medical History PMH: Anxiety, Arthritis, CVA (in April), Depression, HTN, Hypercholesterolemia, Hypothyroidism, Chronic Kidney Disease (stage 3 ) Denies: HIV Other PMH: Aortic Aneurysm - Surgical History Surgical History: Denies: Hernia Repair Other surgeries: left hip surgery; TURP 5-7 years ago (?) - Family History Family History: States: Unknown Family Hx - Home Medications Home Medications: Ambulatory Orders Medication Instructions Recorded Atorvastatin [Lipitor] 10 mg PO HS #30 tab 05/06/18 Bethanechol [Urecholine] 25 mg PO TID #90 tab 05/06/18 Bethanechol [Urecholine] 50 mg PO HS #30 tab 05/06/18 Docusate [Colace] 100 mg PO BID #60 cap 05/06/18 Enalapril Maleate [Vasotec] 2.5 mg PO DAILY #30 tab 05/06/18 Febuxostat [Uloric] 80 mg PO DAILY #30 tablet 05/06/18 Lactulose [Enulose] 20 gm PO DAILY PRN #120 ml 05/06/18 Sevelamer Carbonate [Renvela] 800 mg PO TID #90 tab 05/06/18 Sodium Bicarbonate Tab 650 mg PO Q12 #60 tab 05/06/18 Sodium Bicarbonate Tab 650 mg PO Q12 #60 tab 05/06/18 Tamsulosin [Flomax] 0.4 mg PO HS #30 cap 05/06/18 Valproic Acid Oral Soln [Depakene 500 mg PO BID #120 cup 05/06/18 Oral Soln] amLODIPine [Norvasc] 5 mg PO DAILY #30 tab 05/06/18 clonazePAM [Klonopin] 0.5 mg PO DAILY PRN #30 tab 05/06/18 hydrALAZINE [Apresoline] 10 mg PO Q6 #120 tab 05/06/18 Sulfamethoxazole/Trimethoprim 1 tab PO BID #14 tab 06/04/18 [Bactrim DS 800 mg-160 mg] Ciprofloxacin [Cipro] 500 mg PO BID #14 tab 06/05/18 Compress.stocking,Knee,Reg,Lrg 1 each MC ONCE #2 each 07/21/18 [Relief Knee Close Toe] - Allergies Allergies/Adverse Reactions: Allergies Allergy/AdvReac Type Severity Reaction Status Date / Time No Known Allergies Allergy Verified 07/21/18 12:44 Review of Systems ROS Statement: Except As Marked, All Systems Reviewed And Found Negative Constitutional: Negative for: Fever, Chills Cardiovascular: Negative for: Chest Pain Respiratory: Negative for: Shortness of Breath Musculoskeletal: Positive for: Other (right leg swelling). Negative for: Leg Pain Physical Exam - Reviewed Nursing Documentation Reviewed: Yes Vital Signs Reviewed: Yes - Physical Exam Appears: Positive for: No Acute Distress Cardiovascular/Chest: Positive for: Regular Rate, Rhythm. Negative for: Other (JVT) Respiratory: Positive for: Rhonchi (scattered rhonchi bilaterally), Wheezing (occasional expiratory wheeze on left) Pulses-Dorsalis Pedis (L): 2+ Pulses-Dorsalis Pedis (R): 2+ Gastrointestinal/Abdominal: Positive for: Normal Exam, Soft. Negative for: Tenderness Extremity: Positive for: Other (3+ pitting edema to right calf and mid left calf; negative Javier's sign bilaterally; bilateral lower extremities: no erythema, drainage, or ecchymosis) Neurologic/Psych: Positive for: Alert, Oriented (x3) - Laboratory Results Result Diagrams: 07/21/18 13:25 07/21/18 13:25 - ECG O2 Sat by Pulse Oximetry: 96 (RA) Pulse Ox Interpretation: Normal Medical Decision Making Medical Decision Making: Time: 1316 Initial Impression: bilateral leg swelling Initial Plan: --EKG --BNP --CMP --CBC with differential --CXR --Bilateral LE US duplex EKG: sinus, HR 62, non-specific T wave abnormality, inferior infarct. No prior EKG for comparison 1354 CXR FINDINGS: LINES AND TUBES: None. LUNG AND PLEURA: The lungs are hyperinflated and there is peribronchial thickening with chronic changes in both lungs. No lobar pneumonia. There is stable linear scarring in the right lower lobe. No pleural effusion or pneumothorax. HEART AND MEDIASTINUM: There is moderate cardiomegaly. There is unfolding of the aorta no aortic atherosclerotic calcifications present. The hilar and mediastinal contours are within normal limits. SKELETAL STRUCTURES: The bony structures are within normal limits for the patient's age. VISUALIZED UPPER ABDOMEN: Normal. OTHER FINDINGS: None. IMPRESSION: No active pulmonary disease. COPD. 1548 US FINDINGS: COMMON FEMORAL VEIN: Right CFV: Unremarkable. Left CFV: Unremarkable. SUPERFICIAL FEMORAL VEIN: Right SFV: Unremarkable. Left SFV: Unremarkable. POPLITEAL VEIN: Right Popliteal: Unremarkable. Left Popliteal: Unremarkable. POSTERIOR TIBIAL VEIN: Right PTV: Unremarkable. Left PTV: Unremarkable. OTHER FINDINGS: None. IMPRESSION: No evidence of deep venous thrombosis. Results discussed with patient and he was advised to elevate legs when lying or sitting and to use compression stockings as indicated. Follow up with primary care doctor TIFFANIE. Scribe Attestation: Documented by Farrah Roth, acting as a scribe for Sarahi Watkins PA-C. Provider Scribe Attestation: All medical record entries made by the Scribe were at my direction and personally dictated by me. I have reviewed the chart and agree that the record accurately reflects my personal performance of the history, physical exam, medical decision making, and the department course for this patient. I have also personally directed, reviewed, and agree with the discharge instructions and disposition. Disposition - Clinical Impression Clinical Impression: Swelling of both lower extremities - Patient ED Disposition Is Patient to be Admitted: No Counseled Patient/Family Regarding: Studies Performed, Diagnosis, Need For Followup, Rx Given - Disposition Referrals: Madhu Diaz MD [Family Provider] - Disposition: Routine/Home Disposition Time: 16:30 Condition: STABLE Additional Instructions: Follow up with your primary care doctor for further evaluation of leg swelling. Elevate legs as much as possible above your heart and use compression stockings. Return to ER if you develop trouble breathing. Prescriptions: Compress.stocking,Knee,Reg,Lrg [Relief Knee Close Toe] 1 each MC ONCE #2 each Forms: [employer] (Bengali) Print Language: FAROESE
[2018-07-21 13:51] LABS: BASO % 0.8 % (0.0-2.0); EOS # 0.2 K/uL (0.0-0.7); EOS % 3.2 % (0.0-4.0); HEMOGLOBIN 14.5 g/dL (12.0-18.0); LYMPH # 1.2 K/uL (1.0-4.3); LYMPH % 22.5 % (20.0-40.0); MEAN CELL VOLUME 84.5 fl (80.0-94.0); MEAN CORPUSCULAR HEMOGLOBIN 27.3 pg (27.0-31.0); MEAN CORPUSCULAR HGB CONC 32.3 g/dL (33.0-37.0); MEAN PLATELET VOLUME 8.9 fl (7.2-11.7); MONO # 0.5 K/uL (0.0-0.8); MONO % 9.8 % (0.0-10.0); NEUT # 3.5 K/uL (1.8-7.0); NEUT % 63.7 % (50.0-75.0); NRBC % 0.1 % (0.0-0.0); RBC 5.31 Mil/uL (4.40-5.90); RED CELL DISTRIBUTION WIDTH 17.6 % (11.5-14.5); WHITE BLOOD COUNT 5.5 K/uL (4.8-10.8)
--- NOTE | 2018-07-21 14:00 | RAD ---
Date of service: 07/21/2018 HISTORY: Shortness of breath COMPARISON: 04/16/2018 TECHNIQUE: Chest PA and lateral FINDINGS: LINES AND TUBES: None. LUNG AND PLEURA: The lungs are hyperinflated and there is peribronchial thickening with chronic changes in both lungs. No lobar pneumonia. There is stable linear scarring in the right lower lobe. No pleural effusion or pneumothorax. HEART AND MEDIASTINUM: There is moderate cardiomegaly. There is unfolding of the aorta no aortic atherosclerotic calcifications present. The hilar and mediastinal contours are within normal limits. SKELETAL STRUCTURES: The bony structures are within normal limits for the patient's age. VISUALIZED UPPER ABDOMEN: Normal. OTHER FINDINGS: None. IMPRESSION: No active pulmonary disease. COPD.
[2018-07-21 14:14] LABS: ALB/GLOB RATIO 0.8 (1.0-2.1); CALCIUM 9.2 mg/dL (8.4-10.2)
--- NOTE | 2018-07-21 15:52 | US ---
Date of service: 07/21/2018 PROCEDURE: Bilateral lower extremity venous duplex Doppler. HISTORY: + b/L LE edema, R >L COMPARISON: None available. TECHNIQUE: Bilateral common femoral, superficial femoral, popliteal and posterior tibial veins were evaluated. Flow was assessed with color Doppler, compressibility, assessment of phasic flow and augmentation response. FINDINGS: COMMON FEMORAL VEIN: Right CFV: Unremarkable. Left CFV: Unremarkable. SUPERFICIAL FEMORAL VEIN: Right SFV: Unremarkable. Left SFV: Unremarkable. POPLITEAL VEIN: Right Popliteal: Unremarkable. Left Popliteal: Unremarkable. POSTERIOR TIBIAL VEIN: Right PTV: Unremarkable. Left PTV: Unremarkable. OTHER FINDINGS: None. IMPRESSION: No evidence of deep venous thrombosis.
--- NOTE | 2018-07-21 18:17 | CARD ---
APPROVED REPORT Date of service: 07/21/2018 EKG Measurement Heart [id number] <Conclusion> Sinus rhythm with 1st degree AV block Left axis deviation Inferior infarct, age undetermined Abnormal ECG
== END 2018-07-21 16:38 | disposition home or self-care (01) ==
LOC: H.ER 12:35
DX: M79.89 Other specified soft tissue disorders (principal); Z86.59 Personal history of other mental and behavioral disorders; I12.9 Hypertensive chronic kidney disease with stage 1 through stage 4 chronic kidney disease, or unspecified chronic kidney disease; N18.3 Chronic kidney disease, stage 3 (moderate); Z86.73 Personal history of transient ischemic attack (TIA), and cerebral infarction without residual deficits; J44.9 Chronic obstructive pulmonary disease, unspecified